=== PATIENT | male | born 1970 | race Caucasian/White ===

== ENCOUNTER 2021-04-10 13:36 | Emergency (ER) | payer OTHER, SELFPAY ==
[2021-04-10] VITALS (22 sets, daily range): BP systolic 118–140; BP diastolic 87–116; PULSE 64–83; RESP 10–19; TEMP 36.3; O2SAT 97–98
--- NOTE | ~2021-04-10 | CT_ITS ---
EXAMINATION: CTA chest abdomen pelvis EXAM DATE: 04/10/2021 17:46 INDICATION: CP, abd pain, history of thoracic aortic aneurysm. TECHNIQUE: Spiral CT of the chest, abdomen and pelvis was performed following intravenous injection o f 100 mL Omnipaque 350. Axial, coronal and sagittal images chest, abdomen and pelvis were reviewed. Maximum intensity projection 3-D reconstructions of the aorta were created by the technologist on ded kabuku workstation. Coronal maximum intensity pixel images of chest reviewed. The dose-length prod uct (DLP) for this examination was 1185.82 mGy-cm. The exposure was tailored according to patient si ze (auto mA exposure control), and iterative reconstruction (ASIR) was used as additional dose reduct ion technique. There is no prior study for comparison. FINDINGS: AORTA: Aortic valve replacement. Ascending aorta measures 4.9 cm, mildly aneurysmal. The descending t horacic and abdominal aorta are normal in caliber. There is no dissection. No central pulmonary embol i. CHEST: Right lower lobe calcified granuloma. There are no pleural or pericardial effusions. Trach eobronchial tree is patent. There is no mediastinal, hilar or axillary lymphadenopathy. There is no pneumothorax. Heart normal in size. There is mild coronary arterial calcification, arterial sc lerosis. ABDOMEN PELVIS: The liver, spleen, adrenal glands and pancreas are unremarkable. Gallbladder is unre markable. No biliary obstruction. Portal and splenic veins are patent. Kidneys enhance symmetrical ly. There is no hydronephrosis. Left renal peripelvic cysts. The prostate is unremarkable. The hector dder is unremarkable. There is no retroperitoneal or pelvic lymphadenopathy. Small umbilical fat-c ontaining hernia, small left inguinal fat-containing hernia. There is moderate sigmoid diverticulosis. Mild adjacent inflammation, appearance is consistent with a cute mild uncomplicated diverticulitis, inflamed diverticula indicated on axial image 211. The append ix is normal. There is small sliding gastroesophageal hiatal hernia. There is expected amount of co lonic stool. No free intraperitoneal gas. There are no osteoblastic or osteolytic lesions identif ied. IMPRESSION: 1. Mildly aneurysmal ascending aortic aneurysm. No dissection. 2. Mild acute uncomplicated sigmoid diverticulitis. 3. Small umbilical, left inguinal fat-containing hernias. Reviewed, dictated and finalized at location A. ROL VALVE MECHANIC
--- NOTE | 2021-04-10 13:59 | ECG_ITS ---
Measurements Intervals [place] Rate: 75 P: 19 DE: 153 QRS: -18 QRSD: 101 T: 31 QT: 349 QTc: 390 Interpretive Statements SINUS RHYTHM INFERIOR INFARCT, AGE INDETERMINATE ABNORMAL ECG Electronically Signed On 04-10-2021 14:20:40 [employer]OVATION PLANT SUPERVISOR by Kashmir Gusman D.O.
[2021-04-10 14:16] LABS: Basophils Percent Auto 0.5 % (0.2-1.2); Eosinophils Absolute Auto 0.3 K/mm3 (0-0.3); Eosinophils Percent Auto 4.1 % (0-4.4); Hematocrit 43.1 % (42.0-52.0); Hemoglobin 14.8 g/dL (14.0-18.0); Immature Granulocyte Absolute 0.01 K/mm3 (0.00-0.031); Immature Granulocyte Percent A 0.1 % (0-0.5); Lymphocytes Absolute Auto 2.88 K/mm3 (0.9-3.2); Lymphocytes Percent Auto 37.2 % (18.3-44.2); Mean Corpuscular HGB Conc 34.3 g/dl (32-36); Mean Corpuscular Hemoglobin 29.8 pg (26-34); Mean Corpuscular Volume 86.7 fl (80-100); Mean Platelet Volume 8.5 fl (7.4-10.4); Monocytes Absolute Auto 0.6 K/mm3 (0.1-0.6); Monocytes Percent Auto 8.1 % (2.6-8.5); Neutrophils Absolute Auto 3.9 K/mm3 (1.3-6.7); Platelet Count Result 301 k/mm3 (150-375); Red Blood Count 4.97 M/mm3 (4.6-6.20); Red Cell Distribution Width 12.4 % (11.5-14.5); White Blood Count 7.8 K/mm3 (4.5-10.0)
[2021-04-10 14:30] LABS: Add Urine Microscopic? YES; Appearance Urine Clear (Clear); Bilirubin Urine Negative (Negative); Blood Urine Negative (Negative); Color Urine Yellow (Yellow); Glucose Urine UA Negative (Negative); Ketones Urine Negative (Negative); Leukocyte Esterase Ur Negative LEU/UL (Negative); Nitrate Urine Negative (Negative); Protein Urine Negative (Negative); RBC Urine 0-2 /hpf (0-2); Specific Grav Ur 1.008 (1.001-1.035); Urobilinogen Urine Negative mg/dL (<2.0); WBC Urine 0-3 /hpf
[2021-04-10 14:34] LABS: Alanine Aminotransferase 31 U/L (4-50); Albumin Level 4.6 g/dL (3.5-5.1); Alkaline Phosphatase 53 U/L (38-126); Anion Gap 8 mmol/L (8-16); Aspartate Amino Transferase 34 U/L (17-59); Bilirubin,Total 0.9 mg/dL (0.2-1.3); Blood Urea Nitrogen 11 mg/dL (9-20); Calcium 10.4 mg/dL (8.4-10.2); Carbon Dioxide 30 mmol/L (22-30); Chloride 99 mmol/L (98-107); Estimated CRCL calculation 97 ml/min; Estimated Glomerular Filt Rate > 60; Glucose 102 mg/dL (65-110); Lipase 89 U/L (23-300); Potassium 4.4 mmol/L (3.4-5.0); Sodium 137 mmol/L (137-145)
--- NOTE | 2021-04-10 16:11 | ED.ABDPAIN ---
HPI - Abdominal Pain General Chief Complaint: Abdominal Pain <ELROY Lucio Last Filed: 04/10/21 18:40> Stated Complaint: ABD Pain <ELROY Lucio Last Filed: 04/10/21 18:40> Time Seen by Provider: 04/10/21 15:46 <ELROY Lucio Last Filed: 04/10/21 18:40> Source: patient <ELROY Lucio Last Filed: 04/10/21 18:40> Mode of arrival: ambulatory <ELROY Lucio Last Filed: 04/10/21 18:40> Limitations: no limitations <ELROY Lucio Last Filed: 04/10/21 18:40> History of Present Illness HPI narrative: This is a 50 year old male that presents to the ER for abdominal pain present over the last week. Reports sharp pains in the upper and lower abdomen. Reports the pain has now started to radiate into his chest as well. Associated with subjective fevers and nausea. Reports history of thoracic aortic aneurysm and aortic valve replacement. Denies shortness of breath, vomiting, or dysuria. <ELROY Lucio Last Filed: 04/10/21 18:40> Related Data Home Medications: Home Medications Medication Instructions Recorded Confirmed atorvastatin 20 mg tablet 20 mg PO DAILY 12/13/19 buspirone 10 mg tablet 10 mg PO BID 12/13/19 clonazepam 1 mg tablet 1 mg PO DAILY 12/13/19 losartan 25 mg tablet 25 mg PO DAILY 12/13/19 venlafaxine 150 mg tablet,extended 150 mg PO DAILY 12/13/19 release 24 hr fluoxetine 10 mg capsule 10 mg PO DAILY 03/21/20 <ELROY Lucio Last Filed: 04/10/21 18:40> Allergies/Adverse Reactions: Allergies Allergy/AdvReac Type Severity Reaction Status Date / Time No Known Allergies Allergy Verified 03/27/20 15:33 <ELROY Lucio Last Filed: 04/10/21 18:40> Review of Systems Review of Systems: CONSTITUTIONAL: Denies fever CARDIOVASCULAR: Reports chest pain. Denies edema. RESPIRATORY: Denies cough or dyspnea. GASTROINTESTINAL: Reports abdominal pain, nausea. Denies vomiting, or diarrhea. GENITOURINARY: Denies dysuria or hematuria. <Celeste Bernard PA-C - Last Filed: 04/10/21 18:40> All systems reviewed & are unremarkable except as noted in HPI and below <Celeste Bernard PA-C - Last Filed: 04/10/21 18:40> PMFSH Past Medical History Medical History: Medical History (Updated 04/10/21 @ 18:28 by Celeste Bernard PA-C) History of anxiety History of hyperlipidemia History of hypertension <Celeste Bernard PA-C - Last Filed: 04/10/21 18:40> Surgical History Surgical History: Surgical History (Updated 04/10/21 @ 16:18 by Celeste Bernard PA-C) Aortic valve replaced <Celeste Bernard PA-C - Last Filed: 04/10/21 18:40> Social History Social History: Social History (Updated 03/21/20 @ 08:44 by Anastasia Cabezas MA) Smoking status: Never smoker Alcohol intake: current Alcohol use details: Occasionally Substance use: never <Celeste Bernard PA-C - Last Filed: 04/10/21 18:40> Exam Narrative: GENERAL: Well-appearing, well-nourished, and in no acute distress. HEAD: Normocephalic, atraumatic. EYES: EOMI. CHEST: Clear to auscultation. No respiratory distress. No wheezes rales or rhonchi. Tender to palpation of the sternum HEART: Regular rate and rhythm. No murmur heard. Normal peripheral pulses. ABDOMEN: Soft, nondistended, normal active bowel sounds. Tender to palpation throughout the abdomen, without guarding. No CVA tenderness EXTREMITIES: Normal range of motion. No edema. SKIN: Warm, dry, no rash. NEURO: No focal deficits. Alert and oriented x3. PSYCH: Normal mood and affect <Celeste Bernard PA-C - Last Filed: 04/10/21 18:40> Course WATER POLLUTION CONTROL TECHNICIAN/PA Physician Supervision For this patient encounter, I reviewed the WATER POLLUTION CONTROL TECHNICIAN or PA documentation, treatment plan, and medical decision making. <Bruno Crook MD - Last Filed: 04/10/21 19:10> Vital Signs Vital signs: Vital Signs Temperature 97.4 F L 04/10/21 13:54 Pulse Rate 72
[2021-04-10] MEDS: PANTOPRAZOLE SODIUM IV 40 MG VIAL IV PUSH (16:27)
[2021-04-10] MEDS: ONDANSETRON INJ 4 MG/2 ML VIAL IV PUSH (16:27)
[2021-04-10 17:21] LABS: Prothrombin Time 12.8 Seconds (11.1-14.7)
[2021-04-10 17:22] LABS: Partial Thromboplastin Time 30.5 SECONDS (22.3-36.8)
[2021-04-10 17:30] LABS: Troponin I < 0.012 ng/mL (0.000-0.034)
[2021-04-10] MEDS: AMOXICILLIN/CLAVULANATE K 875-125 MG TAB 1 TABLET PO (18:51)
== END 2021-04-10 19:03 | disposition home or self-care (01) ==
PROVIDERS: Emergency Medicine; Physician Assistant; Emergency Provider Emergency Medicine; PCP Internal Medicine Gastroenterology
DX: K57.32 Diverticulitis of large intestine without perforation or abscess without bleeding (principal); E78.5 Hyperlipidemia, unspecified; I10 Essential (primary) hypertension; F41.9 Anxiety disorder, unspecified; Z95.2 Presence of prosthetic heart valve; I71.4 Abdominal aortic aneurysm, without rupture; K40.90 Unilateral inguinal hernia, without obstruction or gangrene, not specified as recurrent; R94.31 Abnormal electrocardiogram [ECG] [EKG]
CPT/HCPCS: 36415; 71275; 74174; 80053; 81001; 83690; 84484; 85025; 85610; 85730; 93005; 96374; 96375; 99284; A9270; C9113; J0131; J2405; Q9967

== ENCOUNTER 2024-07-03 19:11 | Inpatient (IN) | payer OTHER, SELFPAY ==
[2024-07-03] VITALS (9 sets, daily range): BP systolic 156–184; BP diastolic 88–109; PULSE 66–77; RESP 15–27; TEMP 36.5–37.1; O2SAT 90–98; BMI 31.4; BMI 32.3
--- NOTE | ~2024-07-03 | CT_ITS ---
CTA chest PE protocol Ordering provider: Thomas Toledo MD History: 53 years Male with . Shortness of breath . Comparison: None. Technique: CT angiogram chest was performed following timed intravenous injection of contrast. Thin s lice axial images and reformatted coronal images were obtained. Three dimensional reformatted images of the chest were also obtained using a [employer] workstation. . Automated exposure control and iterati ve reconstruction technique were employed. The dose-length product was 559.50 mGy-cm. 100 mL Omnipaqu e 350 was given IV. Findings: PULMONARY ARTERIES: No pulmonary embolus. VISUALIZED THORACIC INLET: Normal. MEDIASTINUM: Aorta/coronary arteries: Mild atheromatous disease. Heart/other: The heart is not enlarged. Lymph nodes: Precarinal lymph nodes are noted with the largest measures 1.7 cm.. Small paratracheal l ymph node is noted measuring 1.5 cm. LUNGS: Bilateral interstitial thickening with tree-in-bud appearance suggestive of pneumonitis. Clinical cor relation and follow advised. Bilateral minimal pleural effusion more on the right side. Adjacent atel ectasis versus pneumonia is seen. No pulmonary nodules or masses. No pneumothorax. VISUALIZED UPPER ABDOMEN: Tiny hypodensity in the right lobe of the liver may be a small cyst. Ultra sound evaluation advised. Small sliding hiatus hernia. Otherwise, the visualized upper abdomen is nor mal. MUSCULOSKELETAL: Soft tissues: The superficial soft tissues are normal. Bones: Age appropriate degenerative changes of the spine. Postoperative changes in the sternum. IMPRESSION: 1. Highly suggestive of pneumonitis. Clinical correlation and follow-up advised. 2. Bilateral pleural effusion with adjacent atelectasis versus pneumonia. 3. Small hypodensity in the liver. Ultrasound evaluation advised. 4. Mediastinal lymphadenopathy. Reviewed, dictated and finalized at location A. R OPERATOR AUTOMATIC IMPRESSION: 1. Highly suggestive of pneumonitis. Clinical correlation and follow-up advise d. 2. Bilateral pleural effusion with adjacent atelectasis versus pneumonia. 3. Small hypodensity in the liver. Ultrasound evaluation advised. 4. Mediastinal lymphadenopathy.
--- NOTE | ~2024-07-03 | XR_ITS ---
XR chest 2V Ordering provider: Thomas Toledo MD History: 53 years Male with . SOB . Comparison: None. FINDINGS: MEDIASTINUM: The cardiac silhouette is slightly enlarged. Postoperative changes in the mediastinum. LUNGS: No infiltrates, effusions or pneumothorax. Underlying emphysematous changes. OTHER: No free air under the diaphragm. IMPRESSION: No acute cardiopulmonary pathology. Reviewed, dictated and finalized at location A. L MILL OPERATOR
--- NOTE | ~2024-07-03 | CT_ITS ---
Non-contrast Head CT History: Headache, anticoagulation Technique: Axial non-contrast imaging of the brain was performed. Dose reduction technique was used on this scan by utilizing automated exposure control and iterative reconstruction technique. The dose -length product (DLP) was 1362.00 mGy-cm. Findings: There is no evidence of intracranial hemorrhage, mass lesion, or acute infarct. Brain par enchyma appears normal. The ventricles and subarachnoid spaces are normal in size. The calvarium ap pears normal. The visualized paranasal sinuses and mastoid air cells are clear. Impression: No significant abnormality seen. Reviewed, dictated and finalized at location . [facility] NURSE SUPERVISOR Impression: No significant abnormality seen.
--- NOTE | ~2024-07-03 | XR_ITS ---
[id number] Ordering provider: Isaac Gaitan MD History: . pain . Comparison: None. FINDINGS: VERTEBRAL BODIES: Normal height and alignment. No visible fracture or subluxation. The dens is intact . C6 and C7 are not demonstrated in the lateral view. DISK SPACES: Well maintained. PARASPINOUS SOFT TISSUES: No prevertebral soft tissue swelling. IMPRESSION: No acute osseous abnormality cervical spine. Reviewed, dictated and finalized at location A. AL TECHNICIAN APPRENTICE
--- NOTE | ~2024-07-03 | XR_ITS ---
EXAMINATION: XR shoulder LT min 2V DATE: 07/05/2024 15:43 INDICATION: Left shoulder pain TECHNIQUE: AP internally and externally rotated, AP oblique externally rotated and transscapular Y vi ews of the left shoulder were obtained. COMPARISON: None FINDINGS: Normal alignment. No fracture.Moderate left acromioclavicular osteoarthritis and mild glenohumeral o steoarthritis. Visualized portions of the lungs are clear. Median sternotomy wires and prior aortic v alve repair. Soft tissues are unremarkable. IMPRESSION: Mild left glenohumeral and moderate acromioclavicular osteoarthritis. Reviewed, dictated and finalized at location B. AURANT GENERAL MANAGER
--- NOTE | ~2024-07-03 | XR_ITS ---
EXAMINATION: XR chest 2V DATE: 07/07/2024 13:22 INDICATION: Pneumonia TECHNIQUE: PA and lateral views of the chest were obtained. COMPARISON: Chest radiograph and CT dated 07/03/2024 FINDINGS: Small left pleural effusion with blunting at the posterior sulcus and costophrenic angle. Calcified r ight lower lobe nodule consistent with old granulomatous disease. No other airspace opacities, pulmon crystal edema, pleural effusion or pneumothorax. Cardiomegaly with small left pericardial fat pad. Median sternotomy wires and changes of prior aortic valve repair. IMPRESSION: 1. Small left pleural effusion. Reviewed, dictated and finalized at location L. NDWATER PROGRAMS DIRECTOR
--- OUTSIDE RECORDS SUMMARY | 2024-07-03 19:13 | XMS_ITS | Data Portability ---
Author Organization [facility] [employer], Main Office Address [address] [place] [address] Care Team Providers Care Service Sprinkler Helper Name Role Phone WAYNE MORIN Primary Care Provider [phone] WAYNE MORIN Referring Provider Assessment Encounter Date Assessment Date Assessment LastModified by Organization Details LastModified Time 01/22/2023 01/22/2023 Impression: Patient I suspect has a symptomatic medial meniscus tear. I have discussed treatment options with him. I have explained that some meniscus tears will improve on their own with time. He has had symptoms for 2 months and and he feels that 2 weeks ago his pain was excruciating to the point were he could not walk of his knee. He would rather have an MRI scan obtained the if he has a meniscus tear that is significant have this addressed surgically rather than tried non operative treatment such as physical therapy. I have therefore recommended proceeding with MRI scan of his left knee we will see with the findings are and advise accordingly. In the meantime I have prescribed a Medrol Dosepak to see if that will give some relief. 30 minutes were spent in total care this patient this time spent in [id number]-rilm care. The [email or web address] Not available 01/22/2023 19:59:33 Plan of Treatment Reminders Order Date Submit Date Provider Last Modified By Organization Details Last Modified Time Details Appointments None recorded. Lab None recorded. Referral None recorded. Procedures None recorded. Surgeries None recorded. Imaging XR, knee 023 023 [email or web address] [facility] [place], [facility], [place], [address], 09:56:28 Medication Orders Medrol (Collin) 4 mg tablets in a dose pack 023 023 [email or web address] [facility], [address], [place], [address], 16:07:47 Patient TargetsNo targets recorded. Patient InstructionsNo instructions recorded. Reason for Referral None Reported. Results Created Date Observation Date Name Description Value Unit Range Abnormal Flag Note LastModifiedBy Organization Detail LastModifiedTime 01/23/20 XR, knee No observ ation record ed. [email or web address] [facility] [place] [address] [facility], [place], [address], 01/22/2023 19:57:01 02/28/2002/26/2023 MRI, knee, w/o contr ast [facility] [address], [place] [address] Patien t Name: VERONICA RIVAS Access ion #: [id number] Sex: M : 1970 7 Dictat ed By: Gerson Elias ell Attend ing Physic tk: JEOVANY PORTILLO Physic tk: JEOVANY PORTILLO Exam Date: Exam Name: MRI KNEE LT WO Admitt ing Diagno sis(es ): CLINIC AL INFORM ATION: Left knee pain. COMPAR KAREN: None. TECHNI LEONARDO INFORM ATION: Multis equenc e multip lanar MRI images of the left knee were obtain ed jadenou t contra st. FINDIN GS: Crucia te ligame nts: ACL and PCL are intact and otherw ise unrema rkable . Extens or mechan ism: Sammy ceps mechan ism and patell ar tendon are intact . Mild edema and small amount of fluid in the prepat ellar and superf icial infrap atella r bursae . Collat eral ligame nts: Grade 2 sprain of the MCL with edema and fluid along its superf icial and deep fibers . Latera l collat eral ligame nt is intact .. Menisc i: Horizo ntal flap tear involv ing the vault keeper ior horn and body of the medial menisc us with flap compon ent of the tear measur ing up to 5 mm extend ing into the adjace nt inferi or gutter , interp osed betwee n the medial tibial platea u and MCL. There is also free edge frayin g, possib le minima l free edge tear at the vault keeper ior horn of the medial menisc us more latera lly. Latera l menisc us is intact . Cartil age: Chondr al fissur ing/fi brilla tion near the median ridge of the patell a and involv ing adjace nt portio ns of the medial and latera l patell ar facets . Modera te chondr al fissur ing in the weight bearin g zone has of the medial and latera l femora l condyl es. Bones: No acute fractu re or focal marrow contus ion Joint fluid: Small joint effusi on. Other: Small poplit eal cyst. IMPRES NAEEM: 1. Horizo ntal flap tear in the vault keeper ior horn and body of the medial menisc us with flap compon ent extend ing into the adjace nt inferi or gutter . 2. Free edge frayin g and possib le small free edge tear or latera lly in the Page [address] [facility] [address] [place] [address] Patien t Name: VERONICA RIVAS Access ion #: [id number] Sex: M : 1970 7 Dictat ed By: Gerson shin Attend ing Physic tk: EVELIN BAEZA [facility] Physic tk: JEOVANY PORTILLO Exam Date: 2022 16:41 PM Exam Name: MRI KNEE LT WO Admitt ing Diagno sis(es ): vault keeper ior horn of the medial menisc us. 3. Grade 2 sprain of the MCL. 4. Grade III chondr omalac ia in all 3 compar tments . 5. Small joint effusi on. 6. Small poplit eal cyst. 7. Mild prepat ellar and superf icial infrap atella r bursit is. Electr onical ly Signed by: Gerson shin at 2022 14:54: 31 PM Page [address] (Imaging) [address] [place], [address], 03/02/2023 10:04:29 Result Notes None recorded. Problems Name Problem SNOMED Code Status Onset Date Resolution Date Notes Provider Name and Address Organization Details Recorded Time Multiple lipomata 493157906 Active Not Available [facility] 3 18:01:10 Pain of left knee joint 77893755382715 7 Active 2022 THOR Page, [place] [facility] 12:23:47 Problem Notes None recorded. Procedures Surgical History Date Name Laterality Status Provider Name and Address Organization Details Recorded Time procedure on heart completed Paconelda Millere HOLL[place]onya [place] [facility] 07/28/2022 16:39:53 procedure on intestine completed THOR Vidal [facility] 07/28/2022 16:40:18 replacement of aortic valve completed Paco Kunz Sonya [facility] 07/28/2022 16:40:50 Imaging Results Imaging Date Name Status LastModified by Organiz ation Details LastModified Time 01/22/2023 XR, knee completed [email or web address] [facility] [address], [address], 01/22/2023 19:57:01 02/26/2023 MRI, knee, w/o contrast completed [address] (Imaging) [address] [place], [address], 03/02/2023 10:04:29 Procedure Notes None recorded. Medical Equipment None Reported. Allergies No known drug allergies Medications Name Sig Start Date Stop Date Status Note LastModified by Organization Details LastModified Time losartan 50 mg tablet TAKE 1 TABLET BY MOUTH ONCE DAILY active Not Available Not Available No t Available atorvastati n 40 mg tablet TAKE 1 TABLET BY MOUTH ONCE DAILY active Not Available Not Available No t Available carvedilol 6.25 mg tablet TAKE 1 TABLET BY MOUTH TWICE DAILY active Not Available Not Available No t Available prednisone 10 mg tablet TAKE 4 TABLETS BY MOUTH ON DAYS 1-3, THEN 3 TABS ON DAYS 4-5, THEN 2 TABS ON DAY 6, THEN 1 TAB ON DAY 7 active Not Available Not Available No t Available atorvastati n 20 mg tablet TAKE 1 TABLET BY MOUTH ONCE DAILY active Not Available Not Available No t Available carvedilol 12.5 mg tablet TAKE 1 TABLET BY MOUTH TWICE DAILY active Not Available Not Available No t Available naproxen 375 mg tablet TAKE 1 TABLET BY MOUTH TWICE DAILY NEEDED PAIN OR INFLAMMAT ION active Not Available Not Available No t Available azithromyci n 250 mg tablet FPD active Not Available Not Available Not Available hydrocodone 5 mg-acetamin ophen 325 mg tablet TK 1 T PO Q 4 H NEEDED FOR PAIN 01/22 completed Not Available Not Available Not Available Medrol (Collin) 4 mg tablets in a dose pack take the medrol dose pack PO as directed 2022 active Not Available Not Available Not Avai lable clonazepam 1 mg tablet TAKE 1 TABLET BY MOUTH 4 TIMES DAILY active Not Available Not Available No t Available venlafaxine ER 150 mg capsule,ext ended release 24 hr TAKE 1 CAPSULE BY MOUTH ONCE DAILY active Not Available Not Available No t Available metronidazo le 500 mg tablet TAKE 1 TAB BY MOUTH AT 1 PM, 2 PM, AND 10 PM THE DAY BEFORE SURGERY 01/22 completed Not Available Not Available Not Available ciprofloxac in 500 mg tablet TAKE 1 TABLET BY MOUTH TWICE DAILY FOR DIVERTICU LITIS TAKE ON AN EMPTY STOMACH 01/22 completed Not Available Not Available Not Available peg-electro lyte solution 420 gram oral solution TAKE 1/2 BY MOUTH AT 5 PM ON 09/12 THEN TAKE 1/2 AT 5 AM ON 09/13 completed Not Available Not Available Not Available ondansetron 8 mg disintegrat ing tablet TAKE ONE TABLET BY MOUTH AT 11 AM WHEN STARTING BOWEL PREP,TAKE ONE TABLET NEEDED EVERY 6-8 HOURS AFTER. active Not Available Not Available No t Available Gentle Laxative (bisacodyl) 5 mg tablet,irma yed release TAKE 6 TABS BY MOUTH AT 8 AM ON 09/12/2101/22 completed Not Available Not Available Not Available zaleplon 10 mg capsule TAKE 1 CAPSULE BY MOUTH AT BEDTIME active Not Available Not Available No t Available furosemide 20 mg tablet TAKE 1 TABLET BY MOUTH ONCE DAILY active Not Available Not Available No t Available lorazepam 1 mg tablet TAKE 1 TABLET BY MOUTH THREE TIMES DAILY NEEDED active Not Available Not Available No t Available neomycin 500 mg tablet 01/22 completed Not Available Not Available Not Available fluoxetine 20 mg capsule TAKE 1 CAPSULE BY MOUTH ONCE DAILY active Not Available Not Available No t Available risperidone 1 mg tablet TAKE 1 TABLET BY MOUTH AT BEDTIME active Not Available Not Available No t Available naproxen 500 mg tablet TAKE 1 TABLET BY MOUTH TWICE DAILY active Not Available Not Available No t Available aripiprazol e 5 mg tablet TAKE 1 TABLET BY MOUTH ONCE DAILY AT NIGHT AT BEDTIME FOR 90 DAYS active Not Available Not Available No t Available Aspir-81 01/22 completed Not Available Not Available Not Available alprazolam 01/22 completed Not Available Not Available Not Available Vitals Date Recorded Body height Oxygen saturation Oxygen saturation in Arterial blood by Pulse oximetry Body mass index (BMI) Body weight Body temperature Heart rate Systolic blood pressure Diastolic blood pressure Provider Name and Address Organization Details Last Updated DateTime 170.18 cm 97 % 97 % 32.6 kg/m2 83022.2 1 g 98.2 [degF] 84 /min 169 mm[Hg] 116 mm[Hg] THOR Vidal [facility] [employer] [facility] 16:37:11 Date Recorded Body height Provider Name an d Address Organization Details Last Updated DateTime 01/22/2023 170.18 cm Zayda Hirsch Sonya [facility] [employer] [facility] 01/22/2023 12:21:30 Date Recorded Body mass index (BMI) Body weight Provider Name and Address Organization Details Last Updated DateTime 01/22/2023 34.3 kg/m2 27678.73 g Coral Lopes Sonya [facility] [employer] [facility] 01/22/2023 12:47:04 Social History Question Answer Notes LastModified by Organizat ion Details LastModified Time Tobacco Smoking Status [facility] 07/28/2022 16:39:40 What Is Your Level Of Alcohol Consumption? Moderate [email or web address] Information not available 07/28/2022 What Is Your Level Of Caffeine Consumption? Moderate Information not available 07/28/2022 What Was The Date Of Your Most Recent Tobacco Screening? 07/28/2022 [email or web address] Information not available 07/28/2022 Have You Ever Been Counseled For Unhealthy Alcohol Use? No Information not available 07/28/2022 Do You Use Any Illicit Or Recreational Drugs? No [email or web address] Information not available 07/28/2022 Do You Or Have You Ever Used Any Other Forms Of Tobacco Or Nicotine? Yes Chew Information not available 01/22/2023 Sex: Unknown Functional Status None recorded. Mental Status None recorded. Family History Relationship Description Onset Age of this Age Resolved Age Notes LastModified by Organization Details LastModified Time Father Hypertensive disorder Not available 2022 12:22:58 Mother Hypertensive disorder [email or web address] Not available 2022 12:22:59 Medical History Condition Response ARTHRITIS Y HEART DISEASE/HEART PROBLEMS Y DEPRESSION (INCLUDING POST ) Y HEART MURMUR Y HYPERTENSION Y Past Encounters Encounter ID Performer Location Encounter Start Date Encounter Closed Date Diagnosis/Indication Diagnosis SNOMED-CT Code Diagnosis ICD10 Code Diagnosis Note [id number] Fitz Pimentel NP [facility] [address], [address] [place] [address] 07/28/2022 16:08:40 07/28/2022 16:58:00 Vasectomy requested 898927266 Z30.2 Pre-operat erica counseling given to patient including pre-op care of cleaning and shaving before the procedure. Patient is aware that this is considered a permanent form of sterilizat ion, even though it can be reversed it is not guaranteed to be successful . Patient instructed to purchase tight fitting compressio n shorts and bring them to appointmen t to wear immediatel y after the procedure. We discussed post op care aimed at reducing post-op complicati ons such as scrotal swelling and hematoma. Patient instructed on compressio n, elevation, ice, and pain control with Tylenol/Mo eric. Patient instructed on activity levels after procedure. He is to avoid bathtubs, swimming, hot tubs, ect until incisions are completely healed in 1-2 weeks. We discussed that he is not sterile immediatel y after the procedure and other forms of contracept ion will need to be utilized until he has two negative semen samples. One dropped off 6 weeks after the procedure and one two weeks after the first negative. [facility] to sign his consent form prior to taking pain medication /antianxie ty medication prescribed . All questions were discussed and answered to patients satisfacti on. [id number] Jeovany Quigley MD [facility] [place] [address] [place] [address] 01/22/2023 11:58:42 01/23/2023 09:56:28 Pain of left knee joint 8039451122 [id number] M25.562 Health Concerns Section Related Observation LastModified by Organization Detai ls LastModified Time None Recorded Concern Status LastModified by Organization Details LastModified Time None Recorded Advance Directives Directive None Recorded Payers Encounter Date Sequence Insurance Name Policy Number Policy Londono Covered Member ID Londono Member ID Guarantor Name 07/28/2022 1 [employer] Petr Rivas Jr [id number] Petr Rivas 01/22/2023 1 [employer] Petr Byron Rob Jessica [id number] Petr Rivas Notes Date Note Type Note Provider Name and Address Organization Details Recorded Time 07/28/2022 text/html : :Patient presents for vasectomy consultation. : noCHILDREN: noCONSIDERS VASECTOMY PERMANENT: yesPRIOR SCROTAL OPERATIONS: noneBLOOD THINNERS: none Fitz Pimentel NP [address] [facility], [facility] [address], [place], [address], [place] [facility] [employer] 08/04/2022 14:08:55 01/22/2023 text/html patient is a 52-year-old gentleman referred by Dr. Morin for evaluation of his left knee. Two months ago he developed spontaneous onset medial joint line pain left knee. He has also noticed some pain posteriorly in the the knee. The pain became quite severe he went to urgent care when 2 weeks ago it was so painful he could not put weight on it. 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 He recalls that 5 or 6 months ago he had a bad fall and turned his ankle little bit recalls his left knee was a little bit sore for short. Time but then that was fine. Patient's past history is significant for diverticulitis past. He had 8 in of intestine removed 1 year ago because of the complication and he was advised to minimize use of nonsteroidal anti-inflammatory medications as result. Past history of open heart surgery for aortic valve replacement at age 41. The he does have hypertension also. He is still working and doing his best tolerated. Jeovany Quigley MD [address] [place] [address] [address], [place], [address], [place] [facility] [employer] [facility] [employer] 01/22/2023 19:59:55
--- OUTSIDE RECORDS SUMMARY | 2024-07-03 19:13 | XMS_ITS | Clinical Summary ---
Author Organization [facility] Address [address] [place] [address] Care Team Providers Care Aquarist Name Role Phone Shun Simpson MD Primary Care Provider Source Comments [facility],non-owned Affiliates and Associated Physician Practices is amultiple site organization consisting of ambulatory clinics and hospital sitesin [place], [place], [place] and [place]. This disclosure is being madepursuant to the Care Everywhere program and may not contain all information available regarding this patient. Last updated 18.[facility] Allergies No known active allergies Medications * Be aware that medications may not be up to date on this document. Alwaysverify current medications with the patient. Medication Sig Dispensed Refills Start Date End Date Status busPIRone (BUSPAR) 10 MG tablet Take 10 mg by mouth 2 times daily 5 10/28/2018 Active clonazePAM (KLONOPIN) 1 MG tablet Take 1 mg by mouth 2 times daily 5 01/29/2019 Active atorvastatin (LIPITOR) 20 MG tablet Take 20 mg by mouth once daily 4 02/02/2019 Active losartan (COZAAR) 25 MG tablet TAKE 1 2 (ONE HALF) TABLET BY MOUTH ONCE DAILY 1 02/14/2019 Active venlafaxine XR 24hr (EFFEXOR XR) 150 MG capsule Take 150 mg by mouth once daily 5 01/25/2019 Active Social History Tobacco Use Types Packs/Day Years Used Date Smoking Tobacco: Never Smokeless Tobacco: Never Sex and Gender Information Value Date Recorded Sex Assigned at Not on file Gender Identity Male 02/19/2019 12:12 PM CDT Sexual Orientation Not on file Last Filed Vital Signs Vital Sign Reading Time Taken Comments Blood Pressure 148/88 02/19/2019 12:13 PM CDT Pulse 78 02/19/2019 12:13 PM CDT Temperature 36.8 C (98.2 F) 02/19/2019 12:13 PM CDT Respiratory Rate 16 02/19/2019 12:13 PM CDT Oxygen Saturation 97% 02/19/2019 12:13 PM CDT Inhaled Oxygen Concentration - - Weight 95.3 kg (210 lb) 02/19/2019 12:13 PM CDT Height 170.2 cm (5' 7 ) 02/19/2019 12:13 PM CDT Body Mass Index 32.89 02/19/2019 12:13 PM CDT Plan of Treatment Health Maintenance Due Date Last Done Comments COLOGUARD (AGES 45-75) - COL ON CA SCREENING 1971 COLON MONITORING 1971 COLONOSCOPY - COLON CA SCREENING 1971 CT COLONOGRAPHY - COLON CA SCREENING 1971 Colorectal Cancer Screening 1971 FIT - COLON CA SCREENING 1971 FLEX SIG - COLON CA SCREENING 1971 HIV SCREENING 08/22/1986 HEPATITIS C SCREENING 08/18/1989 DTAP/TDAP/TD VACCINES (1 - Tdap) 08/22/1990 HEPATITIS B VACCINE (1 of 3 - 19+ 3-dose series) 08/22/1990 SCREENING FOR DIABETES 02/19/2019 PNEUMOCOCCAL VACCINE 50+ (1 of 1 - PCV) 08/22/2021 ZOSTER VACCINE (1 of 2) 08/22/2021 COVID-19 VACCINE (1 - 2023-2 5 season) 2024 INFLUENZA VACCINE (#1) 2024 DEPRESSION SCREENING 05/04/2024 HIB VACCINE Aged Out No longer eligi ble based on patient's age to complete this topic HPV VACCINE Aged Out No longer eligi ble based on patient's age to complete this topic MENINGOCOCCAL (Group B) VACCINE Aged Out No longer eligible based on patient's age to complete this topic MENINGOCOCCAL VACCINE Aged Out No shaggy [place] eligible based on patient's age to complete this topic PNEUMOCOCCAL VACCINE Aged Out No long er eligible based on patient's age to complete this topic Care Teams Aquarist Relationship Specialty Start Date End Date Shun Simpson MD [address] [place] [id number] PCP - General Gastroenterology 01/10/19
--- OUTSIDE RECORDS SUMMARY | 2024-07-03 19:14 | XMS_ITS | CONTINUITY OF CARE DOCUMENT ---
Author Name elinor aldrich Address Unknown Organization [facility] Address [address] [address] [place] [address] Phone [phone] Care Team Providers Care Die Repairer Stamping Name Role Phone Ade HUSAIN, Porfirio Unavailable [phone] MD DE SOUZA JOSHUA Unavailable NEELAM MORIN MD Unavailable PROBLEMS Condition Status Date Provider Notes Coumadin therapy active Willie Roth RN SHORTNESS OF BREATH-07/14 CAT H SEVERE , 4+ AI active ? Porfirio Booker MD AORTIC STENOSIS-07/14 AVR active ? Porfirio mays MD CAROTID ARTERY DISEASE-07/14 CAROTID DUP NEG active ? Porfirio Booker MD HTN ESSENTIAL active Porfirio Booker MD CAD-mild nonobstructive active Porfirio Booker MD Aortic root dilatation active Porfirio Booker MD Neck pain, left active Porfirio Booker MD SLEEP APNEA active Porfirio Booker MD Fatigue active Porfirio Booker MD Anxiety active Porfirio Booker MD Chest pain active Ingris Ventimiglia PAPER REELER Cardiology examination active Porfirio Booker MD ENCOUNTERS Date Type Provider Location Encounter Diag nosis - In-person encounter Office Visit Porfirio Booker MD [facility] - In-person encounter Office Visit Porfirio Booker MD [facility] - In-person encounter Office Visit Porfirio Booker MD [facility] Cardiology examination - In-person encounter Office Visit Lauren Lemons MD [facility] Chest pain - In-person encounter Office Visit Porfirio Booker MD [facility] - In-person encounter Office Visit oPrfirio Booker MD [facility] Anxiety - In-person encounter Office Visit Porfirio Booker MD [facility] - In-person encounter Office Visit Porfirio Booker MD [facility] - In-person encounter Office Visit Porfirio Booker MD [facility] SLEEP APNEAFatigue - In-person encounter Office Visit Lauren Lemons MD [facility] - In-person encounter Office Visit Porfirio Booker MD [facility] Neck pain, left - In-person encounter Office Visit Porfirio Booker MD [facility] Aortic root dilatation - In-person encounter Office Visit Porfirio Booker MD [facility] - In-person encounter Office Visit Porfirio Booker MD [facility] - In-person encounter Office Visit Porfirio Booker MD [facility] - In-person encounter Office Visit Porfirio Booker MD [facility] CAD-mild nonobstructive - In-person encounter Office Visit Porfirio Booker MD [facility] HTN ESSENTIAL - In-person encounter Office Visit Porfirio Booker MD [facility] SHORTNESS OF BREATH-07/14 CATH SEVERE , 4+ AIAORTIC STENOSIS-07/14 AVRCAROTID ARTERY DISEASE-07/14 CAROTID DUP NEG - In-person encounter Office Visit Porfirio Booker MD [facility] SHORTNESS OF BREATH-07/14 CATH SEVERE , 4+ AIAORTIC STENOSIS-07/14 AVR VITAL SIGNS Date Observation Value Provider Body Mass Index (Ratio) 31.41 kg/m2 Dianna Booker MD blood pressure, diastolic 78 mm[Hg] Shane aracelis Osborn blood pressure, systolic 111 mm[Hg] Jada roberson Osborn blood pressure, cuff size regular Shane aracelis Osborn oxygen saturation, oximetry 98 % [facility] pulse rate 80 /min [facility] weight E&M 200.6 [lb_av] [facility] Osborn height E&M 67 [in_i] [facility] Osborn Body Mass Index (Ratio) 32.73 kg/m2 Dianna Booker MD blood pressure, diastolic 114 mm[Hg] nkLog blood pressure, systolic 162 mm[Hg] Jordyn og pulse rate 83 /min Zuleikachelsie Thayer oxygen saturation, oximetry 98 % Zuleikachelsie Thayer respiratory rate E&M 20 /min Zuleika Thayer blood pressure, cuff size regular Gordon bitbryan Thayer blood pressure, diastolic 114 mm[Hg] Ta bitha Thayer blood pressure, systolic 162 mm[Hg] Tab itha Thayer weight E&M 209 [lb_av] Zuleika Thayer height E&M 67 [in_i] Zuleika Thayer Body Mass Index (Ratio) 32.57 kg/m2 Dianna Booker MD blood pressure, cuff size regular Gordon romero Thayer blood pressure, diastolic 94 mm[Hg] Gordon romero Thayer blood pressure, systolic 142 mm[Hg] Elmo reynolds Thayer oxygen saturation, oximetry 98 % Zuleika Thayer pulse rate 86 /min Zuleika Thayer weight E&M 208 [lb_av] Zuleika Thayer respiratory rate E&M 12 /min Zuleika Thayer height E&M 67 [in_i] Zuleika Thayer Body Mass Index (Ratio) 33.20 kg/m2 Joseph Lemons MD pulse rate 92 /min [place] Rizo respiratory rate E&M 20 /min [place] Rizo oxygen saturation, oximetry 98 % [place] Rioz blood pressure, cuff size regular ruth ann Rizo blood pressure, diastolic 103 mm[Hg] ruth ann Rizo blood pressure, systolic 161 mm[Hg] She grace Rizo weight E&M 212 [lb_av] [place] Rizo height E&M 67 [in_i] [place] Rizo Body Mass Index (Ratio) 33.20 kg/m2 Dianna Booker MD blood pressure, cuff size large Ke rri Martin blood pressure, diastolic 90 mm[Hg] Ke rri Martin blood pressure, systolic 112 mm[Hg] Ted Salazar oxygen saturation, oximetry 97 % Ruth Salazar respiratory rate E&M 14 /min Ruth klein pulse rate 98 /min Ruth Ford [facility] weight E&M 212 [lb_av] Ruth lyle height E&M 67 [in_i] Ruth Liliana [facility] Body Mass Index (Ratio) 33.83 kg/m2 Dianna Booker MD blood pressure, cuff size large Ke rri Gruenenfelder blood pressure, diastolic 100 mm[Hg] Ke rri Gruenenfelder blood pressure, systolic 148 mm[Hg] Ted ri Stephennfshahanaer oxygen saturation, oximetry 98 % Ruth Grkayleennenfghislaine respiratory rate E&M 16 /min Ruth G lulenenfelder pulse rate 63 /min Ruth Grkayleennenfe lder weight E&M 216 [lb_av] Ruth Grfernandoe lder height E&M 67 [in_i] Ruth Grkayleennenfe er weight E&M 205 [lb_av] Merrick coyle Body Mass Index (Ratio) 34.14 kg/m2 Dianna Booker MD oxygen saturation, oximetry 95 % [facility] rate E&M 16 /min Tonsha Tierney pulse rate 88 /min Tonsha Tierney weight E&M 218 [lb_av] Tonsha Tierney height E&M 67 [in_i] Tonsha Tierney Body Mass Index (Ratio) 30.85 kg/m2 Dianna Booker MD blood pressure, cuff size large Ke rri Jacintouenenfghislaine blood pressure, diastolic 100 mm[Hg] Ke rri Gruenenfeldmargy blood pressure, systolic 122 mm[Hg] Ted ri Michaelnenfghislaine oxygen saturation, oximetry 98 % Ruth Martin respiratory rate E&M 18 /min Ruth G lulenenfelder pulse rate 70 /min Ruth Liliana lder weight E&M 197 [lb_av] Ruth Ford lder height E&M 67 [in_i] Ruth Ford er Body Mass Index (Ratio) 34.92 kg/m2 Dianna Booker MD blood pressure, diastolic 86 mm[Hg] Ramy Duranby blood pressure, systolic 120 mm[Hg] Ramyi darvin Duranby pulse rate 90 /min Carla Jennifer oxygen saturation, oximetry 98 % Carla Jennifer respiratory rate E&M 17 /min Carla Jennifer blood pressure, cuff size regular Ramy Duranby weight E&M 223 [lb_av] Carla Jennifer height E&M 67 [in_i] Carla Jennifer Body Mass Index (Ratio) 34.77 kg/m2 Joseph eLmons MD blood pressure, cuff size regular Ke rri Martin blood pressure, diastolic 102 mm[Hg] Ke rri Martin blood pressure, systolic 142 mm[Hg] Ted Salazar oxygen saturation, oximetry 97 % Ruth Salazar respiratory rate E&M 18 /min Ruth klein pulse rate 91 /min Ruth Ford er weight E&M 222 [lb_av] Ruth Ford er height E&M 67 [in_i] Ruth Liliana er Body Mass Index (Ratio) 33.36 kg/m2 Dianna Booker MD blood pressure, cuff size large Ke rri Martin blood pressure, diastolic 86 mm[Hg] Ke rri Martin blood pressure, systolic 122 mm[Hg] Ted Salazar oxygen saturation, oximetry 97 % Ruth Salazar respiratory rate E&M 16 /min Ruth benjaminshahanamargy pulse rate 88 /min Ruth Ford er weight E&M 213 [lb_av] Ruth Ford er height E&M 67 [in_i] Ruth Ford er Body Mass Index (Ratio) 34.08 kg/m2 Dianna Booker MD blood pressure, resting Yes Geetha Harp blood pressure, diastolic 85 mm[Hg] Ariel Harp blood pressure, systolic 128 mm[Hg] Morelia Harp oxygen saturation, oximetry 96 % Cosme Harp respiratory rate E&M 18 /min Dallas Harp pulse rate 91 /min CosmeRoberta Perese cesia weight E&M 217.6 [lb_av] Cosme Ja hung height E&M 67 [in_i] Cosme Mendes nson blood pressure, diastolic 80 mm[Hg] Ariel Harp blood pressure, systolic 124 mm[Hg] Morelia Harp pulse rate 64 /min Cosme Mendes maycoon oxygen saturation, oximetry 98 % Cosme Harp respiratory rate E&M 16 /min Dallas Harp Body Mass Index (Ratio) 33.26 kg/m2 Geetha Harp weight E&M 212.4 [lb_av] Cosme Ja hung blood pressure, diastolic 60 mm[Hg] Ariel Harp blood pressure, systolic 104 mm[Hg] Morelia Harp pulse rate 86 /min Cosme Steve maycoon oxygen saturation, oximetry 98 % Cosme Harp respiratory rate E&M 16 /min Dallas Harp Body Mass Index (Ratio) 32.51 kg/m2 Geetha Harp weight E&M 207.6 [lb_av] Cosme persaud Body Mass Index (Ratio) 33.67 kg/m2 Geniaa ryne Crandall blood pressure, diastolic 85 mm[Hg] An ho Crandall blood pressure, systolic 133 mm[Hg] Ane atris [facility] pulse rate 91 /min Aneatris [facility] oxygen saturation, oximetry 99 % Aneatris Raz respiratory rate E&M 16 /min Aneatri s [facility] weight E&M 215 [lb_av] Aneatris [facility] Body Mass Index (Ratio) 33.98 kg/m2 Michelle michele [facility] blood pressure, diastolic 92 mm[Hg] An ho Crandall blood pressure, systolic 150 mm[Hg] Ane atris [facility] pulse rate 64 /min Aneatris [facility] oxygen saturation, oximetry 98 % Aneatris [facility] respiratory rate E&M 18 /min Aneatri s [facility] weight E&M 217 [lb_av] Geniaatris Raz blood pressure, diastolic 86 mm[Hg] Oscar Roth RN blood pressure, systolic 128 mm[Hg] Willie Roth RN pulse rate 62 /min Willie Roth RN oxygen saturation, oximetry 99 % Willie Roth RN respiratory rate E&M 16 /min Willie baird RN Body Mass Index (Ratio) 32.22 kg/m2 Willie Roth RN weight E&M 205 [lb_av] Willie Roth RN height E&M 67 [in_i] Willie Roth RN Body Mass Index (Ratio) 31.59 kg/m2 Keri a Moriah blood pressure, diastolic 64 mm[Hg] Ta vera Stueber blood pressure, systolic 114 mm[Hg] Dan ya Stueber pulse rate 75 /min Kajal Major oxygen saturation, oximetry 98 % Kajal Major respiratory rate E&M 16 /min Kajal bernard weight E&M 201 [lb_av] Kajal Major blood pressure, diastolic 85 mm[Hg] Radha Basurto blood pressure, systolic 127 mm[Hg] Janice Basurto pulse rate 83 /min Gema Basurto oxygen saturation, oximetry 98 % Gema Basurto respiratory rate E&M 16 /min Gema Basurto weight E&M 202 [lb_av] Gema Basurto height E&M 67 [in_i] Gema Basurto ALLERGIES No Known Drug Allergies RESULTS Date Observation Value Provider Reference Range Interpretation Location coagulation managed by Willie Roth RN international normalized ratio (INR) 2.1 Willie Roth RN Normal prothrombin time (patient) 25.2 s Willie Roth RN coagulation managed by Willie Roth RN international normalized ratio (INR) 2.8 Willie Roth RN Normal prothrombin time (patient) 33.5 s Willie Roth RN coagulation managed by Willie Roth RN international normalized ratio (INR) 3.6 Willie Roth RN Normal prothrombin time (patient) 43.2 s Willie Roth RN coagulation managed by Willie Roth RN international normalized ratio (INR) 4.1 Willie Roth RN Normal prothrombin time (patient) 48.8 s Willie Roth RN coagulation managed by Willie Roth RN international normalized ratio (INR) 2.9 Willie Roth RN Normal prothrombin time (patient) 34.7 s Willie Roth RN coagulation managed by Willie Roth RN international normalized ratio (INR) 4.6 Willie Ira [place] Normal prothrombin time (patient) 54.7 s Willie Gonzalezsada [place] coagulation managed by Adalgisa Crandall RN international normalized ratio (INR) 4.4 Adalgisa Crandall RN High coagulation managed by Willie Roth RN Willie Ira [place] international normalized ratio (INR) 1.6 Willie Roth RN Normal prothrombin time (patient) 19.3 s Willie Ira [place] coagulation managed by Willie Roth RN Willie Ira [place] international normalized ratio (INR) 1.3 Willie Roth RN Normal prothrombin time (patient) 16.0 s Willie Ira [place] international normalized ratio (INR) 1.1 Teressa Raymundo platelet count 238 10*3/mm3 Teressa Raymundo hematocrit, blood 35.1 % Teressa Raymundo alanine aminotransferase (SGPT), serum 25 1/L Teressa Raymundo aspartate aminotransferase (SGOT), serum 18 1/L Teressa Raymundo creatinine, serum 0.85 mg/dL Teressa Raymundo potassium, serum 4.4 mmol/L Teressa Raymundo sodium, serum 140 mmol/L Teressa Raymundo HISTORY OF MEDICATION USE Medication Status Instructions Dates Provider Indications Com ments warfarin 5 mg tablet active Take 1/2 tablet by mouth every evening one tab on only Willie Roth RN warfarin 5 mg tablet completed - Willie Roth RN alprazolam 0.5 mg tablet active TAKE 1 TO 2 TABLETS BY MOUTH UP TO THREE TIMES DAILY Zuleika Thayer clonazepam 1 mg tablet active TAKE 1 TABLET BY MOUTH UP TO 6 TIMES DAILY Zuleika Thayer carvedilol 12.5 mg tablet active Take 1 tablet by mouth twice daily Renetta Rushing atorvastatin 20 mg tablet active Take 1 tablet by mouth once daily Renetta Rushing Lasix 20 mg tablet completed Take 1 tablet by mouth once a day - Ruth Salazar lorazepam 1 mg tablet active TAKE 1 TABLET BY MOUTH THREE TIMES DAILY NEEDED Ingris Rayoglamee PAPER REELER losartan 50 mg tablet completed Take 1 tablet by mouth twice daily - Michaelrubia Osborn Aspirin Low Dose 81 mg tablet,delayed release (DR/EC) completed Take 1 tablet by mouth once a day - Porfirio Booker MD Coreg 12.5 mg tablet completed Take 1 tablet by mouth twice a day Take 1 tablet by mouth twice daily - Ruth Salazar fluoxetine 20 mg capsule active capsule by mouth once a day Ruth Salazar Klonopin 1 mg tablet completed take one pill twice a day - Ingris Rayodoni DURBINP losartan 50 mg tablet completed Take 1 tablet by mouth once a day - Porfirio Booker MD per last OV with UQ atorvastatin 20 mg tablet completed Take 1 tablet by mouth once a day - Mack Dietrich LOSARTAN POTASSIUM 25 MG ORAL TABLET completed Take one tablet daily - Carla Rodriguez Fish Oil 360-1,200 mg capsule active 1 capsule by mouth once a day Cosme Harp Effexor XR 150 mg capsule,extende d release 24hr active capsule by mouth once a day Ruth Salazar BUSPIRONE HCL 30 MG ORAL TABLET completed twice daily - Ruth Salazar KLONOPIN 0.5 MG ORAL TABLET completed at prn - Cosme Harp POTASSIUM CHLORIDE ANABELLE ER 10 MEQ ORAL TABLET EXTENDED RELEASE completed ONE TAB. DAILY - Willie Roth RN METOPROLOL TARTRATE 25 MG ORAL TABLET completed 1 tab twice daily - Porfirio Booker MD PERCOCET 5-325 MG ORAL TABLET completed as needed - Willie Roth RN FUROSEMIDE 40 MG ORAL TABLET completed daily - Willie Roth RN COLACE 100 MG ORAL CAPSULE completed daily - Willie Roth RN ASPIRIN 81 MG ORAL TABLET completed ONE TAB. DAILY - Ruth Martin PAROXETINE HCL 20 MG ORAL TABLET completed one tablet daily - CosmeRoberta Harp FLAGYL 500 MG ORAL TABLET completed daily - Willie Roth RN LISINOPRIL 10 MG ORAL TABLET completed ONE TAB. DAILY - Cosme Harp LEXAPRO 20 MG ORAL TABLET completed ONE TAB. DAILY - Willie Roth RN ATORVASTATIN CALCIUM 10 MG ORAL TABLET completed daily - Willie Roth RN SOCIAL HISTORY Date Observation Value Provider drug use no Porfirio Booker MD alcohol use, average drinks per day social Porfirio Booker MD alcohol use yes Porfirio Booker MD passive cigarette sm khalida exposure no Porfirio Booker MD smoking status Never smoker Porfirio Booker MD drug use no Porfirio Booker MD alcohol use, average drinks per day social Porfirio Booker MD alcohol use yes Porfirio Booker MD passive cigarette sm khalida exposure no Porfirio Booker MD smoking status Never smoker Porfirio Booker MD drug use no Porfirio Booker MD alcohol use, average drinks per day social Porfirio Booker MD alcohol use yes Porfirio Booker MD passive cigarette sm khalida exposure no Porfirio Booker MD smoking status Never smoker Porfirio Booker MD drug use no Ingris Ventimig america [facility] alcohol use, average drinks per day social Ingris Ventimiglia [facility] alcohol use yes Ingris Ventimig america PAPER REELER smoking status Never smoker Ingris araujo PAPER REELER social history E&M Marital Statu s: Single P atient has never smoked. Smoking History: P atient has never smoked. Porfirio Booker MD social history reviewed E&M revi ewed - no changes required Porfirio Booker MD passive cigarette sm khalida exposure no Ruth Martin smoking status Never smoker Ruth burks drug use no Porfirio Booker MD alcohol use no Porfirio Booker MD social history E&M Marital Statu s: Single P atient has never smoked. Smoking History: P atient has never smoked. Porfirio Booker MD social history reviewed E&M revi ewed - no changes required Porfirio Booker MD passive cigarette sm khalida exposure no Ruth Salazar smoking status Never smoker Ruth burks smoking status Never smoker Porfirio Booker MD social history E&M Marital Statu s: Single P atient has never smoked. Smoking History: P atmarguerite has never smoked. Porfirio Booker MD social history reviewed E&M revi ewed - no changes required Porfirio Booker MD passive cigarette sm khalida exposure no Tonsha Tierney social history E&M Marital Statu s: Single P atmarguerite has never smoked. Smoking History: P atient has never smoked. Porfirio Booker MD social history reviewed E&M revi ewed - no changes required Porfirio Booker MD alcohol use no Ruth Liliana lder drug use no Ruth Liliana lder passive cigarette sm khalida exposure no Ruth Martin smoking status Never smoker Ruth Angulo kimmie social history reviewed E&M revi ewed - no changes required Porfirio Booker MD alcohol use no Ruth Liliana lder drug use no Ruth Liliana lder passive cigarette sm khalida exposure no Ruth Rodriguezrenpolyghislaine smoking status Never smoker Ruth Angulo kimmie social history reviewed E&M revi ewed - no changes required Porfirio Booker MD alcohol use no Ruth Ford lder drug use no Ruth Ford valdoer passive cigarette sm khalida exposure no Ruth Rodriguezrenpolyghislaine smoking status Never smoker Ruth Angulo kimmie number of grandchildren Porfirio Booker MD U sheng Booker MD social history reviewed E&M revi ewed - no changes required Porfirio Booker MD alcohol use no Cosme Mendes nson drug use no Cosme callaway passive cigarette sm khalida exposure no Cosme Harp smoking status Never smoker Cosme Caceres social history reviewed E&M revi ewed - no changes required Porfirio Booker MD alcohol use no Cosme Mendes nson drug use no Cosme Mendes nson passive cigarette sm khalida exposure no Cosme Harp smoking status Never smoker Cosme Caceres social history reviewed E&M revi ewed - no changes required Porfirio Booker MD alcohol use no CosmeRoberta Mendes nson drug use no Cosme maoon passive cigarette sm khalida exposure no Cosme Harp smoking status Never smoker Cosme Caceres social history reviewed E&M revi ewed - no changes required Porfirio Booker MD smoking status Never smoker Ash Gely barkley social history E&M Marital Statu s: Single P atient has never smoked. Smoking History: P atient has never smoked. Porfirio Booker MD social history reviewed E&M revi ewed - no changes required Porfirio Booker MD drug use no Porfirio Booker MD passive cigarette sm khalida exposure no Porfirio Booker MD smoking status Never smoker Porfirio Booker MD social history reviewed E&M reviewed Porfirio Booker MD drug use no Willie Roth RN passive cigarette sm khalida exposure no Willie Roth RN social history reviewed E&M reviewed Willie Roth RN social history E&M Marital Status: Single Porfirio Booker MD social history reviewed E&M reviewed Porfirio Booker MD smoking status never smoker Gema husain FUNCTIONAL STATUS Date Observation Value Provider HRA, CV Assess/Plan, Angina (inactive) Management Plan continue current therapy Porfirio Booker MD HRA, CV Assess/Plan, Angina (inactive) Management Plan continue current therapy Ingris LOVELACE HRA, CV Assess/Plan, Angina (inactive) Management Plan continue current therapy Porfirio Booker MD HRA, CV Assess/Plan, Angina (inactive) Management Plan continue current therapy Porfirio Booker MD HRA, CV Assess/Plan, Angina (inactive) Management Plan continue current therapy Porfirio Booker MD HRA, CV Assess/Plan, Angina (inactive) Management Plan continue current therapy Lauren Lemons MD HRA, CV Assess/Plan, Angina (inactive) Management Plan continue current therapy Porfirio Booker MD HRA, CV Assess/Plan, Angina (inactive) Management Plan continue current therapy Porfirio oBoker MD HRA, CV Assess/Plan, Angina (inactive) Management Plan continue current therapy Porfirio Booker MD MENTAL STATUS Date Observation Value Provider assessment of judgme nt and insight E&M Alert and oriented to time, place and person. Mood and affect are normal. Willie Roth RN assessment of judgme nt and insight E&M Alert and oriented to time, place and person. Mood and affect are normal. Willie Roth RN assessment of judgme nt and insight E&M Alert and oriented to time, place and person. Mood and affect are normal. Porfirio Booker MD FAMILY HISTORY Family Member Condition First Degree Blood Relative No Known Fam daniel History INSURANCE PROVIDERS Payer name Policy type / Coverage type [place] red green party ID [id number] ADVANCE DIRECTIVES Name Date DISCUSSED - NO DECISION MADE TREATMENT PLAN Date Name Performer [id number],C,m ild per last sleep study in 2016. CPAP not covered by his plan. Can plan f/u sleep eval Ingrisfernando Rayodoni [facility] [id number],C,w ith bioprosthetic AVR. No murmur noted on exam. Will do f/u echo for further evaluation Ingrisfernando Rayodoni [facility] [id number],C,n oted on last echo at 4.99. Will do f/u echo and get better BP control Ingrisfernando Rayodoni [facility] [id number],C,B P 161/103. Uncontrolled at visit today. Discussed importance of compliance with medications and avoiding OTC NSAIDs and cold/flu medications. We will increase his coreg to 12.5mg BID and add lasix 20 mg daily. Will return in 2 weeks or sooner if needed. Have asked him to monitor BP at home and bring readings to next visit H is updated medication list for this problem includes: Coreg 12.5 Mg Tablet (Carvedilol) ..... 1 tablet by mouth twice a day take 1 tablet by mouth twice daily Lasix 20 Mg Tablet (Furosemide) ..... Take 1 tablet by mouth once a day Losartan 50 Mg Tablet (Losartan) ..... Take 1 tablet by mouth once daily Orders: E KG (CPT-29522) 9 9214 MOD 30-39min (CPT-99234) C omplete Echo (CPT-19614) S tress Exercise Cardiolite (CPT-97502) C OMPREHENSIVE METABOLIC PANEL, W/EGFR (20423) B TYPE NATRIURETIC PEPTIDE (BNP) (43920) C RP, high sensitivity (32790) L IPID PANEL (7600) L ipoprotein (a) (447203) C BC (INCLUDES DIFF/PLT) (6399) Ingris Avila [facility] [id number],C,E tiology unclear at this time. May be secondary to his elevated BP. EKG reviewed with Dr. Lemons and no acute ST/T wave changes. Patient has cough and some SOB concerning for volume overload. We will do labs, echo and stress test for further evaluation. Last cath was in 2013 and had mild non-obstructive CAD at that time. Will return post testing or sooner if needed. H is updated medication list for this problem includes: Coreg 12.5 Mg Tablet (Carvedilol) ..... 1 tablet by mouth twice a day take 1 tablet by mouth twice daily Ingris Avila [facility] [id number],S,H is last measurements are around 4.8 cm we will check an echo and a CTA in august Porfiiro Booker MD [id number],S, H is updated medication list for this problem includes: Aspirin Low Dose 81 Mg Tablet,delayed Release (/ec) (Aspirin) ..... Take 1 tablet by mouth once a day Coreg 6.25 Mg Tablet (Carvedilol) ..... Take 1 tablet by mouth twice a day Porfirio Booker MD [id number],S, Porfirio Booker MD [id number],S, H is updated medication list for this problem includes: Losartan 50 Mg Tablet (Losartan) ..... Take 1 tablet by mouth once a day BP today: 112/90 P rior BP: 148/100 (08/09/2020) Labs Reviewed: C reat: 0.85 (07/08/2012) Porfirio Booker MD Cardiology Porfirio Booker MD Cardiology: S table. Continue medical therapy. T his visit has been a part of the consistent, comprehensive, and ongoing management of the chronic medical condition(s) listed above for the patient. H is updated medication list for this problem includes: Carvedilol 12.5 Mg Tablet (Carvedilol) ..... Take 1 tablet by mouth twice daily Porfirio Booker MD Cardiology Porfirio Booker MD Cardiology:Recent ep isode of hypotension l osartan and lasix held His updated medication list for this problem includes: Carvedilol 12.5 Mg Tablet (Carvedilol) ..... Take 1 tablet by mouth twice daily BP today: 111/78 P rior BP: 162/114 (02/04/2024) Labs Reviewed: C reat: 0.85 (07/08/2012) Porfirio Booker MD Cardiology:s/p aorti c root replacement and [facility] metal aortic valve placement by Dr. Sam Lieberman ill need ABx prophylaxis prior to having dental work I NR being managed by [facility], but patient would like to have INR managed by my office for convenience Porfirio Booker MD Cardiology: m ild per last sleep study in 2017. CPAP not covered by his plan. Porfirio Booker MD Cardiology:Had AVR Porfirio Booker MD Cardiology: H is updated medication list for this problem includes: Carvedilol 12.5 Mg Tablet (Carvedilol) ..... Take 1 tablet by mouth twice daily Furosemide 20 Mg Tablet (Furosemide) ..... Take 1 tablet by mouth once daily Losartan 50 Mg Tablet (Losartan) ..... Take 1 tablet by mouth once daily BP today: 162/114 P rior BP: 142/94 (12/24/2023) Labs Reviewed: C reat: 0.85 (07/08/2012) Porfirio Booker MD Cardiology:Stable. C ontinue medical therapy. T his visit has been a part of the consistent, comprehensive, and ongoing management of the chronic medical condition(s) listed above for the patient. H is updated medication list for this problem includes: Carvedilol 12.5 Mg Tablet (Carvedilol) ..... Take 1 tablet by mouth twice daily Porfirio Booker MD Cardiology:5.22 cm P atient has been referred to see Dr. De Souza at [facility] for evaluation on treatment options T his visit has been a part of the consistent, comprehensive, and ongoing management of the chronic medical condition(s) listed above for the patient. Porfirio Booker MD Cardiology: H is updated medication list for this problem includes: Losartan 50 Mg Tablet (Losartan) ..... Take 1 tablet by mouth once daily Furosemide 20 Mg Tablet (Furosemide) ..... Take 1 tablet by mouth once daily Carvedilol 12.5 Mg Tablet (Carvedilol) ..... Take 1 tablet by mouth twice daily BP today: 142/94 P rior BP: 161/103 (08/26/2022) Labs Reviewed: C reat: 0.85 (07/08/2012) Porfirio Booker MD Cardiology: m ild per last sleep study in 2016. CPAP not covered by his plan. Can plan f/u sleep eval Porfirio Booker MD Cardiology:Check CT and an echo Porfirio Booker MD Cardiology:Chest bouchra n is atypical, likely related to anxiety, sees psych M ay be related to his AVR His updated medication list for this problem includes: Carvedilol 12.5 Mg Tablet (Carvedilol) ..... Take 1 tablet by mouth twice daily Porfirio Booker MD Cardiology:Check ech o to asses bioprosthetic aortic valve function Porfirio Booker MD Cardiology:Check CT to evaluate the size of his aortic root Porfirio Booker MD Cardiology:mild per last sleep study in 2016. CPAP not covered by his plan. Can plan f/u sleep eval Ingris Ventimiglia [facility] Cardiology:with biop rosthetic AVR. No murmur noted on exam. Will do f/u echo for further evaluation Ingris Avila [facility] Cardiology:noted on last echo at 4.99. Will do f/u echo and get better BP control Ingris Avila [facility] Cardiology:BP 161/10 3. Uncontrolled at visit today. Discussed importance of compliance with medications and avoiding OTC NSAIDs and cold/flu medications. We will increase his coreg to 12.5mg BID and add lasix 20 mg daily. Will return in 2 weeks or sooner if needed. Have asked him to monitor BP at home and bring readings to next visit H is updated medication list for this problem includes: Coreg 12.5 Mg Tablet (Carvedilol) ..... 1 tablet by mouth twice a day take 1 tablet by mouth twice daily Lasix 20 Mg Tablet (Furosemide) ..... Take 1 tablet by mouth once a day Losartan 50 Mg Tablet (Losartan) ..... Take 1 tablet by mouth once daily Orders: E KG (CPT-68818) 9 9214 MOD 30-39min (CPT-79202) C omplete Echo (CPT-13984) S tress Exercise Cardiolite (CPT-21150) C OMPREHENSIVE METABOLIC PANEL, W/EGFR (38229) B TYPE NATRIURETIC PEPTIDE (BNP) (78159) C RP, high sensitivity (22376) L IPID PANEL (7600) L ipoprotein (a) (723367) C BC (INCLUDES DIFF/PLT) (6399) Ingris Avila [facility] Cardiology:Etiology unclear at this time. May be secondary to his elevated BP. EKG reviewed with Dr. Lemons and no acute ST/T wave changes. Patient has cough and some SOB concerning for volume overload. We will do labs, echo and stress test for further evaluation. Last cath was in 2013 and had mild non-obstructive CAD at that time. Will return post testing or sooner if needed. H is updated medication list for this problem includes: Coreg 12.5 Mg Tablet (Carvedilol) ..... 1 tablet by mouth twice a day take 1 tablet by mouth twice daily Ingris Avila [facility] Cardiology:His last measurements are around 4.8 cm we will check an echo and a CTA in august Porfirio Booker MD Cardiology: H is updated medication list for this problem includes: Aspirin Low Dose 81 Mg Tablet,delayed Release (dr/ec) (Aspirin) ..... Take 1 tablet by mouth once a day Coreg 6.25 Mg Tablet (Carvedilol) ..... Take 1 tablet by mouth twice a day Porfirio Booker MD Cardiology Pofririo Booker MD Cardiology: H is updated medication list for this problem includes: Losartan 50 Mg Tablet (Losartan) ..... Take 1 tablet by mouth once a day BP today: 112/90 P rior BP: 148/100 (08/09/2020) Labs Reviewed: C reat: 0.85 (07/08/2012) Porfirio Booker MD Cardiology Follow up :Recently had effexor increased by psychologist Porfirio Booker MD Cardiology Follow up :Echo today revealed aortic root is 5.0cm, is being monitored by annual CTs at [place] for this issue. Porfirio Booker MD Cardiology Follow up :Will increase Losartan to 50mg BP today: 148/100 P rior BP: 122/100 (06/24/2018) Labs Reviewed: C reat: 0.85 (07/08/2012) Porfirio Booker MD Cardiology Follow up :Stress test, echo were normal. Patient has rare R sided chest pains that do not appear to be cardiac in nature. Will continue medical management. Porfirio Booker MD Cardiology:Will incr ease Losartan to 25mg given that BP is elevated today. Prior BP: 122/100 (06/24/2018) Labs Reviewed: C reat: 0.85 (07/08/2012) Porfirio Booker MD Cardiology:Appears t o be functioning fine, but as above will need an echo. Porfirio Booker MD Cardiology Porfirio Booker MD Cardiology:Will obta in routine echo and stress test. Patient is experiencing mild intermittent angina. Porfirio Booker MD Cardiology Follow up :Pt has bovine valve replacement. Cont. ASA. Porfirio Booker MD Cardiology Follow up : B P today: 122/100 P rior BP: 120/86 (06/18/2017) Labs Reviewed: C reat: 0.85 (07/08/2012) Porfirio Booker MD Cardiology Follow up :measured 4.6x4.7, unchanged from 1 year prior. Will repeat echo in 1 year. Porfirio Booker MD Cardiology Follow up :appears st able. 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 A dvised patient on weight loss and diet to improve symptoms of fatigue. Porfirio Booker MD Cardiology:S/p AVR. W ill check echo. Porfirio Booker MD Cardiology Porfirio Booker MD Cardiology:Patient h as mild sleep apnea and will reschedule a titration study as they lost the data from his original one. Porfirio Booker MD Cardiology:4.8x4.8cm on CT , repeat CT in 9 months R esume losartan at 12.5mg daily. Porfirio Booker MD Cardiology:He discon tinued his Losartan at his last visit with his PCP due to headaches. I believe he would benefit from taking Losartan as it can reduce the enlargment of aneurysm. W ill try half of 25mg tab daily. BP today: 120/86 P rior BP: 142/102 (03/17/2017) Labs Reviewed: C reat: 0.85 (07/08/2012) Porfirio Booker MD Cardiology Follow up Lauren elliott MD Cardiology Follow up:do sleep st udy add losartan Lauren Lemons MD Cardiology Follow up:add statin Lauren Lemons MD Cardiology Follow up :4.8x4.8cm on CT will start losartan, repeat CT in 3 months Lauren Lemons MD Cardiology Follow up :Well controlled on current medications. BP today: 122/86 P rior BP: 128/85 (01/08/2017) Labs Reviewed: C reat: 0.85 (07/08/2012) Porfirio Booker MD Cardiology Follow up :Still planning to undergo CT scan to evaluate dilation of the ascending aorta. Porfirio Booker MD Cardiology Follow up :This is much more likely to be musculoskeletal from the extra physical work that he has been doing and it is nothing to worry about. Porfirio Booker MD Cardiology:On last e cho was 4.33 cm. Will order CTA chest with focus on thoracic aorta. Porfirio Booker MD Cardiology:Stable. On asa. Porfirio Booker MD Cardiology: B P today: 128/85 P rior BP: 124/80 (01/11/2016) Labs Reviewed: C reat: 0.85 (07/08/2012) Porfirio Booker MD Cardiology:Only on e xertion. Remains physically active, but states he has a poor diet. Has gained 5 lbs in the past year. Each may be the reason for his MANUEL. Porfirio Booker MD Cardiology:124/80 Porfirio Del Castillo Cardiology Porfirio Booker MD Cardiology Porfirio Booker MD Cardiology Porfirio Booker MD Cardiology:off lisin opril bp is fine will stop the lisinopril Porfirio Booker MD Cardiology Porfirio Booker MD hos follow up Porfirio Booker MD :128/86 T he following medications were removed from the medication list: Metoprolol Tartrate 25 Mg Tabs (Metoprolol tartrate) ..... 1 tab twice daily His updated medication list for this problem includes: Lisinopril 5 Mg Tabs (Lisinopril) ..... One tab daily Aspirin 81 Mg Tabs (Aspirin) ..... One tab. daily Porfirio Booker MD : H is updated medication list for this problem includes: Lisinopril 5 Mg Tabs (Lisinopril) ..... One tab daily Aspirin 81 Mg Tabs (Aspirin) ..... One tab. daily Metoprolol Tartrate 25 Mg Tabs (Metoprolol tartrate) ..... 1 tab twice daily Porfirio Booker MD : H is updated medication list for this problem includes: Lisinopril 5 Mg Tabs (Lisinopril) ..... One tab daily Metoprolol Tartrate 25 Mg Tabs (Metoprolol tartrate) ..... 1 tab twice daily BP today: / Prior BP: 114/64 (09/30/2012) H CT: 35.1 (07/08/2012) Platelets: 238 (07/08/2012) C reat: 0.85 (07/08/2012) Na+: 140 (07/08/2012) K+: 4.4 (07/08/2012) Cardiac Cath: Severe aortic stenosis uncrossable with a wire with a 125 mm gradient by echo. 4+ aortic insufficiency. Minimal CAD with 25% stenosis in the RCA. - [facility] (07/15/2012) Porfirio Booker MD : H is updated medication list for this problem includes: Aspirin 81 Mg Tabs (Aspirin) ..... One tab. daily Carotid Duplex Scan: N ormal carotid duplex examination. Vertebral flow is antegrade bilaterally. - E (07/16/2012) Porfirio Booker MD HOSPITAL FOLLOW UP: H is updated medication list for this problem includes: Lisinopril 5 Mg Tabs (Lisinopril) ..... One tab. daily BP today: 114/64 Prior BP: 127/85 (07/13/2012) H CT: 35.1 (07/08/2012) Platelets: 238 (07/08/2012) C reat: 0.85 (07/08/2012) Na+: 140 (07/08/2012) K+: 4.4 (07/08/2012) Cardiac Cath: Severe aortic stenosis uncrossable with a wire with a 125 mm gradient by echo. 4+ aortic insufficiency. Minimal CAD with 25% stenosis in the RCA. - [facility] (07/15/2012) Porfirio Booker MD HOSPITAL FOLLOW UP: H is updated medication list for this problem includes: Lisinopril 5 Mg Tabs (Lisinopril) ..... One tab. daily BP today: 114/64 Prior BP: 127/85 (07/13/2012) C ardiac Cath: Severe aortic stenosis uncrossable with a wire with a 125 mm gradient by echo. 4+ aortic insufficiency. Minimal CAD with 25% stenosis in the RCA. - [facility] (07/15/2012) H CT: 35.1 (07/08/2012) Platelets: 238 (07/08/2012) C reat: 0.85 (07/08/2012) Na+: 140 (07/08/2012) K+: 4.4 (07/08/2012) SGOT (AST): 18 (07/08/2012) SGPT (ALT): 25 (07/08/2012) Porfirio Booker MD follow up: H is updated medication list for this problem includes: Lisinopril 5 Mg Tabs (Lisinopril) ..... One tab. daily n eeds a card cath O rders: C ardiac Cath - Left - GC (*) C arotid Duplex Bilateral (CPT-59735) Porfirio Booker MD follow up: H is updated medication list for this problem includes: Lisinopril 5 Mg Tabs (Lisinopril) ..... One tab. daily Orders: E KG (CPT-46401) C ardiac Cath - Left - GC (*) C arotid Duplex Bilateral (CPT-66301) Porfirio Booker MD Date Name Cardiac Rehab Complete Echo CT Angio Chest (Aort a) CBC (INCLUDES DIFF/P LT) Lipoprotein (a) LIPID PANEL CRP, high sensitivit y B TYPE NATRIURETIC P EPTIDE (BNP) COMPREHENSIVE METABO LIC PANEL, W/EGFR Stress Exercise Card iolite Complete Echo CT Angio Chest (Aort a) Complete Echo Complete Echo Complete Echo Stress Routine Complete Echo Sleep Study Titratio n Complete Echo CT Angio, chest Complete Echo Complete Echo Complete Echo Complete Echo Complete Echo Complete Echo Carotid Duplex Bilat eral Cardiac Cath - Left - GC HISTORY OF PROCEDURES Procedure Date Procedure Name Provider Procedure Notes S tatus Do Booker MD completed Do Flores MD complete d Do Booker MD completed Do Booker MD completed Do Booker MD completed Do Lino MD completed Do Farnsworth MD complete d Do Flores MD complete d Do Lino MD completed Complex e/m visit add on Porfirio Booker MD completed Complex e/m visit add on Porfirio Booker MD completed EKG Porfirio Booker MD completed Complex e/m visit add on Porfirio Booker MD completed EKG Porfirio Booker MD completed EKG Luis Farnsworth MD complete d EKG Porfirio Booker MD completed EKG Porfirio Booker MD completed SNOMED-CT: 64696240 Physical Exam, Performed: Pulse Exam of Foot Porfirio Booker MD completed SNOMED-CT: 677315489 738565 Current Medications Documented Porfirio Booker MD completed EKG Lauren Lemons MD completed SNOMED-CT: 208424562 539785 Current Medications Documented Lauren Lemons MD completed SNOMED-CT: 89830905 Physical Exam, Performed: Pulse Exam of Foot Porfirio Booker MD completed SNOMED-CT: 688059928 972202 Current Medications Documented Porfirio Booker MD completed SNOMED-CT: 81644743 Physical Exam, Performed: Pulse Exam of Foot Porfirio Booker MD completed EKG Porfirio Booker MD completed SNOMED-CT: 818096108 507908 Current Medications Documented Porfirio Booker MD completed SNOMED-CT: 40617821 Physical Exam, Performed: Pulse Exam of Foot Porfirio Booker MD completed SNOMED-CT: 805646034 175453 Current Medications Documented Porfirio Booker MD completed SNOMED-CT: 621584219 024634 Current Medications Documented Porfirio Booker MD completed EKG Porfirio Booker MD completed EKG Porfirio Booker MD completed
--- OUTSIDE RECORDS SUMMARY | 2024-07-03 19:14 | XMS_ITS | Patient Health Summary ---
Author Organization [facility] Address [address] [place] [address] Care Team Providers Care Pediatric Hospitalist Name Role Phone Shun Simpson MD Primary Care Provider Note from [facility] [place],non-owned Affiliates and Associated Physician Practices is amultiple site organization consisting of ambulatory clinics and hospital sitesin [place], [place], [place] and [place]. This disclosure is being madepursuant to the Care Everywhere program and may not contain all information available regarding this patient. Last updated 18.[facility] Allergies No known active allergies Medications * Be aware that medications may not be up to date on this document. Alwaysverify current medications with the patient. * busPIRone (BUSPAR) 10 MG tablet(Started 10/28/2018) Take 10 mg by mouth 2 times daily 5 refills left * clonazePAM (KLONOPIN) 1 MG tablet(Started 01/29/2019) Take 1 mg by mouth 2 times daily 5 refills left * atorvastatin (LIPITOR) 20 MG tablet(Started 02/02/2019) Take 20 mg by mouth once daily 4 refills left * losartan (COZAAR) 25 MG tablet(Started 02/14/2019) TAKE 1 2 (ONE HALF) TABLET BY MOUTH ONCE DAILY 1 refill left * venlafaxine XR 24hr (EFFEXOR XR) 150 MG capsule(Started 01/25/2019) Take 150 mg by mouth once daily 5 refills left Social History Tobacco Use Types Packs/Day Years [...] Mass Index 32.89 02/19/2019 12:13 PM CDT Procedures * IMAGING/RADIOLOGY/XRAY RESULTS ORDER(Performed 04/01/2018) Results * IMAGING/RADIOLOGY/XRAY RESULTS ORDER (04/01/2018) Anatomical Region Laterality Modality Other Rashaad Casper MD IMAGING Care Teams Pediatric Hospitalist Relationship Specialty Start Date End Date Shun Simpson MD [address] [place] [id number] PCP - General Gastroenterology 01/10/19
--- OUTSIDE RECORDS SUMMARY | 2024-07-03 19:14 | XMS_ITS | Data Portability ---
Author Organization DENAE Marc CRUZ Address [address] [facility] [address] Care Team Providers Care Parole Board Member Name Role Phone SHUN MORIN Primary Care Provider [phone] Assessment No assessment recorded. Plan of Treatment Reminders Order Date Submit Date Provider Last Modified By Organization Details Last Modified Time Details Appointments None recorded. Lab CMP, serum or plasma 2020 021 [facility], [address] [place] [address], [facility] [address], [place], [address], 1 06:12:05 CBC 2020 021 [facility], [facility] [facility], [address], [place], [address], 1 06:12:06 lipid panel, serum 2020 021 [facility], [address] [place] [address], [address], [place], [address], 1 06:12:07 PSA, total, serum or plasma 2019 020 [facility], [address] [facility], [address], [place], [address], 0 13:09:22 CMP, serum or plasma 2019 020 [facility], [facility] [facility], [address], [place], [address], 0 13:09:20 CBC 2019 020 [facility], Chris [address], [address], [place], [address], 0 13:09:21 lipid panel, serum 2019 020 [facility], Chris [address], [address], [place], [address], 0 13:09:21 TSH + free T4, serum 2019 020 [facility], Chris [address], [address], [place], [address], 0 13:09:19 PSA, serum or plasma 2017 018 Chris ODONNELL, [address], [place], [address], 8 08:20:50 lipid panel, serum 2016 017 Chris ODONNELL, [address], [place], [address], 7 07:14:21 CMP, serum or plasma 2016 017 [facility], Chris [address], [address], [place], [address], 7 07:14:20 TSH + free T4, serum 2016 017 [facility], Chris [address], [address], [place], [address], 7 07:14:20 CBC 2016 017 [facility], Chris [address]ont, [address], [place], [address], 7 07:14:20 Referral gastroenter ologist referral - REcent diverticulo sis flair 2021 022 [email or web address] Not available 2 17:45:19 Procedures None recorded. Surgeries None recorded. Imaging XR, chest, 2 view 2020 021 [facility] [address] [place], [address], 1 08:42:32 XR, ribs, unilateral 2020 021 [facility] ([facility] [address] [place], [address], 1 08:44:36 Medication Orders None recorded. Patient TargetsNo targets recorded. Patient InstructionsNo instructions recorded. Reason for Referral Pre Billing Specialist Referral for History of diverticulitis REcent diverticulosis flair Referring Physician: Shun Morin, Internal Medicine, Encounter Date: 05/06/2021 Results Created Date Observation Date Name Description Value Unit Range Abnormal Flag Note LastModifiedBy Organization Detail LastModifiedTime 03/31/20 17 04/01/2017 TSH + free T4, serum TSH 1.080 uIU/m L 0.450- 4.500 Not Available [facility] ([facility]) [address] [place], [address], 04/01/2017 07:14:19 03/31/20 17 04/01/2017 TSH + free T4, serum T4,free(dire ct) 1.14 NG/dL 0.82-1 .77 Not Available [facility] ([facility]) [address] [place], [address], 04/01/2017 07:14:19 03/31/20 17 04/01/2017 CMP, serum or plasm a glucose, serum 93 mg/dL 65-99 Not Available [facility] ([facility]) [address] [place], [address], 04/01/2017 07:14:20 03/31/20 17 04/01/2017 CMP, serum or plasm a BUN 20 mg/dL 6-24 Not Available [facility] ([facility]) [address] [facility], [place], [address], 04/01/2017 07:14:20 03/31/20 17 04/01/2017 CMP, serum or plasm a creatinine, serum 1.02 mg/dL 0.76-1 .27 Not Available [facility] ([facility]) [address] [facility], [place], [address], 04/01/2017 07:14:20 03/31/20 17 04/01/2017 CMP, serum or plasm a eGFR if nonafricn AM 88 mL/mi n/1.7 3 >59 Not Available [facility] ([facility]) [address] [facility], [place], [address], 04/01/2017 07:14:20 03/31/20 17 04/01/2017 CMP, serum or plasm a eGFR if africn AM 102 mL/mi n/1.7 3 >59 Not Available [facility] ([facility]) [address] [facility], [place], [address], 04/01/2017 07:14:20 03/31/20 17 04/01/2017 CMP, serum or plasm a BUN/creatini ne ratio 20 9-20 Not Available [facility] ([facility]) [address] [facility], [place], [address], 04/01/2017 07:14:20 03/31/20 17 04/01/2017 CMP, serum or plasm a sodium, serum 142 mmol/ L 134-14 4 Not Available [facility] ([facility]) [address] [place] [address], [address], 04/01/2017 07:14:20 03/31/20 17 04/01/2017 CMP, serum or plasm a potassium, serum 4.7 mmol/ L 3.5-5. 2 Not Available [facility] ([facility]) [address] [facility] [place], [address], 04/01/2017 07:14:20 03/31/20 17 04/01/2017 CMP, serum or plasm a chloride, serum 104 mmol/ L 96-106 Not Available [facility] ([facility]) [address] [facility] [place], [address], 04/01/2017 07:14:20 03/31/20 17 04/01/2017 CMP, serum or plasm a carbon dioxide, total 22 mmol/ L - Not Available [facility] ([facility]) [address] [facility] [place], [address], 04/01/2017 07:14:20 03/31/20 17 04/01/2017 CMP, serum or plasm a calcium, serum 9.5 mg/dL 8.7-10 .2 Not Available [facility] ([facility]) [address] [place], [address], 04/01/2017 07:14:20 03/31/20 17 04/01/2017 CMP, serum or plasm a protein, total, serum 6.5 g/dL 6.0-8. 5 Not Available [facility] ([facility]) [address] [place], [address], 04/01/2017 07:14:20 03/31/20 17 04/01/2017 CMP, serum or plasm a albumin, serum 4.2 g/dL 3.5-5. 5 Not Available [facility] ([facility]) [address] [place] [place], [address], 04/01/2017 07:14:20 03/31/20 17 04/01/2017 CMP, serum or plasm a globulin, total 2.3 g/dL 1.5-4. 5 Not Available [facility] ([facility]) [address] [place], [address], 04/01/2017 07:14:20 03/31/20 17 04/01/2017 CMP, serum or plasm a A/G ratio 1.8 1.2-2. 2 Not Available [facility] ([facility]) [address] [place], [address], 04/01/2017 07:14:20 03/31/20 17 04/01/2017 CMP, serum or plasm a bilirubin, total 0.3 mg/dL 0.0-1. 2 Not Available [facility] ([facility]) [address] [place], [address], 04/01/2017 07:14:20 03/31/20 17 04/01/2017 CMP, serum or plasm a alkaline phosphatase, S 44 IU/L 39-117 Not Available [facility] ([facility]) [address] [place], [address], 04/01/2017 07:14:20 03/31/20 17 04/01/2017 CMP, serum or plasm a AST (SGOT) 27 IU/L 0-40 Not Available [facility] ([facility]) [address] [place], [address], 04/01/2017 07:14:20 03/31/20 17 04/01/2017 CMP, serum or plasm a ALT (SGPT) 35 IU/L 0-44 Not Available [facility] ([facility]) [address] [place], [address], 04/01/2017 07:14:20 03/31/20 17 04/01/2017 CBC WBC 6.6 x10e3 /uL 3.4-10 .8 Not Available [facility] ([facility]) [address] [place], [address], 04/01/2017 07:14:20 03/31/20 17 04/01/2017 CBC RBC 4.55 x10e6 /uL 4.14-5 .80 Not Available [facility] ([facility]) [address] [place] [place], [address], 04/01/2017 07:14:20 03/31/20 17 04/01/2017 CBC hemoglobin 13.1 g/dL 12.6-1 7.7 Eff ectiv e Decem 2016 the refer ence inter juanjo for Hemog lobin MALES only will be capone ing to: Males 13-15 years : 12.6 - 17.7 Males >15 years : 13.0 - 17.7 Not Available [facility] ([facility]) [address] [place], [address], 04/01/2017 07:14:20 03/31/20 17 04/01/2017 CBC hematocrit 40.3 % 37.5-5 1.0 Not Available [facility] ([facility]) [address] [place], [address], 04/01/2017 07:14:20 03/31/20 17 04/01/2017 CBC MCV 89 fL 79-97 Not Available [facility] ([facility]) [address] [place], [address], 04/01/2017 07:14:20 03/31/20 17 04/01/2017 CBC MCH 28.8 pg 26.6-3 3.0 Not Available [facility] ([facility]) [address] [place], [address], 04/01/2017 07:14:20 03/31/20 17 04/01/2017 CBC MCHC 32.5 g/dL 31.5-3 5.7 Not Available [facility] ([facility]) [address] [place], [address], 04/01/2017 07:14:20 03/31/20 17 04/01/2017 CBC RDW 13.0 % 12.3-1 5.4 Not Available [facility] ([facility]) [address] [place], [address], 04/01/2017 07:14:20 03/31/20 17 04/01/2017 CBC platelets 318 x10e3 /uL 150-37 9 Not Available [facility] ([facility]) [address], [place], [address], 04/01/2017 07:14:20 03/31/20 17 04/01/2017 CBC NRBC PRACTICAL NURSING TEACHER Not Available [facility] ([facility]) [address] [facility], [place], [address], 04/01/2017 07:14:20 03/31/20 17 04/01/2017 lipid panel , serum cholesterol, total 147 mg/dL 100-19 9 Not Available [facility] ([facility]) [address] [facility] [place], [address], 04/01/2017 07:14:21 03/31/20 17 04/01/2017 lipid panel , serum triglyceride s 208 mg/dL 0-149 above high normal Not Available [facility] ([facility]) [address] [facility] [place], [address], 04/01/2017 07:14:21 03/31/20 17 04/01/2017 lipid panel , serum HDL cholesterol 44 mg/dL >39 Not Available [facility]) [address] [facility], [place], [address], 04/01/2017 07:14:21 03/31/20 17 04/01/2017 lipid panel , serum VLDL cholesterol gilmar 42 mg/dL 5-40 above high normal Not Available [facility] ([facility]) [address] [facility], [address], 04/01/2017 07:14:21 03/31/20 17 04/01/2017 lipid panel , serum LDL cholesterol calc 61 mg/dL 0-99 Not Available [facility] ([facility]) [address] [facility] [place], [address], 04/01/2017 07:14:21 03/31/20 17 04/01/2017 lipid panel , serum comment: PRACTICAL NURSING TEACHER Not Available [facility] ([facility]) [address] [facility], [place], [address], 04/01/2017 07:14:21 08/25/19 18 08/25/2017 PSA, serum or plasm a prostate specific Ag, serum 0.6 NG/mL 0.0-4. 0 Haydee ECLIA metho dolog y. Accor ding to the Ameri can Urolo gical Assoc iatio n, Serum PSA shoul d decre ase and remai n at undet ectab le level s after radic al prost atect saran. The AUA defin es bioch emica l recur rence as an initi al PSA value 0.2 ng/mL or great er follo wed by a subse quent confi rmato ry PSA value 0.2 ng/mL or great er. Value s obtai yeimy with diffe rent assay metho ds or kits canno t be used inter capone eably . Resul ts canno t be inter prete d as absol [place] evide nce of the prese nce or absen ce of [facility] se. Not Available [facility] ([facility]) [address] [facility], [place], [address], 08/25/2017 08:20:50 08/25/19 18 08/24/2017 pleas e note please note Commen t The date and/o r time of colle ction was not indic ated on the requi sitio n as requi red by state and [place] law. The date of recei pt of the speci men was used as the colle ction date if not suppl ied. Not Available [facility] ([facility]) [address] [facility], [place], [address], 08/25/2017 08:20:51 10/13/19 20 10/14/2019 TSH + free T4, serum TSH 1.150 uIU/m L 0.450- 4.500 Not Available [facility] ([facility]) [address] [facility], [place], [address], 10/14/2019 13:09:19 10/13/19 20 10/14/2019 TSH + free T4, serum T4,free(dire ct) 0.88 NG/dL 0.82-1 .77 Not Available [facility] ([facility]) [address] [place], [address], 10/14/2019 13:09:19 10/13/19 20 10/14/2019 CMP, serum or plasm a glucose 95 mg/dL 65-99 Not Available [facility] ([facility]) [address] [place], [address], 10/14/2019 13:09:20 10/13/19 20 10/14/2019 CMP, serum or plasm a BUN 18 mg/dL 6-24 Not Available [facility] ([facility]) [address] [place], [address], 10/14/2019 13:09:20 10/13/19 20 10/14/2019 CMP, serum or plasm a creatinine 0.90 mg/dL 0.76-1 .27 Not Available [facility] ([facility]) [address] [place], [address], 10/14/2019 13:09:20 10/13/19 20 10/14/2019 CMP, serum or plasm a eGFR if nonafricn AM 101 mL/mi n/1.7 3 >59 Not Available [facility] ([facility]) [address] [place], [address], 10/14/2019 13:09:20 10/13/19 20 10/14/2019 CMP, serum or plasm a eGFR if africn AM 116 mL/mi n/1.7 3 >59 Not Available [facility] ([facility]) [address] [place], [address], 10/14/2019 13:09:20 10/13/19 20 10/14/2019 CMP, serum or plasm a BUN/creatini ne ratio 20 9-20 Not Available [facility] ([facility]) [address] [place], [address], 10/14/2019 13:09:20 10/13/1910/14/2019 CMP, serum or plasm a sodium 141 mmol/ L 134-14 4 Not Available [facility] ([facility]) [address] [place], [address], 10/14/2019 13:09:20 10/13/19 20 10/14/2019 CMP, serum or plasm a potassium 4.8 mmol/ L 3.5-5. 2 Not Available [facility] ([facility]) [address] [place], [address], 10/14/2019 13:09:20 10/13/19 20 10/14/2019 CMP, serum or plasm a chloride 106 mmol/ L 96-106 Not Available [facility] ([facility]) [address] [place], [address], 10/14/2019 13:09:20 10/13/1910/14/2019 CMP, serum or plasm a carbon dioxide, total 24 mmol/ L 20-29 Not Available [facility] ([facility]) [address] [place], [address], 10/14/2019 13:09:20 10/13/19 20 10/14/2019 CMP, serum or plasm a calcium 9.6 mg/dL 8.7-10 .2 Not Available [facility] ([facility]) [address] [place], [address], 10/14/2019 13:09:20 10/13/1910/14/2019 CMP, serum or plasm a protein, total 7.0 g/dL 6.0-8. 5 Not Available [facility] ([facility]) [address] [place], [address], 10/14/2019 13:09:20 10/13/19 20 10/14/2019 CMP, serum or plasm a albumin 4.7 g/dL 4.0-5. 0 Not Available [facility] ([facility]) [address] [place] [place], [address], 10/14/2019 13:09:20 10/13/19 20 10/14/2019 CMP, serum or plasm a globulin, total 2.3 g/dL 1.5-4. 5 Not Available [facility] ([facility]) [address] [facility] [place], [address], 10/14/2019 13:09:20 10/13/19 20 10/14/2019 CMP, serum or plasm a A/G ratio 2.0 1.2-2. 2 Not Available [facility] ([facility]) [address] [place], [address], 10/14/2019 13:09:20 10/13/19 20 10/14/2019 CMP, serum or plasm a bilirubin, total 0.9 mg/dL 0.0-1. 2 Not Available [facility] ([facility]) [address] [place], [address], 10/14/2019 13:09:20 10/13/19 20 10/14/2019 CMP, serum or plasm a alkaline phosphatase 51 IU/L 39-117 Not Available [facility]) [address] [place], [address], 10/14/2019 13:09:20 10/13/19 20 10/14/2019 CMP, serum or plasm a AST (SGOT) 34 IU/L 0-40 Not Available [facility] ([facility]) [address] [place], [address], 10/14/2019 13:09:20 10/13/19 20 10/14/2019 CMP, serum or plasm a ALT (SGPT) 33 IU/L 0-44 Not Available [facility] ([facility]) [address] [place], [address], 10/14/2019 13:09:20 10/13/19 20 10/14/2019 CBC WBC 7.1 x10e3 /uL 3.4-10 .8 Not Available [facility] ([facility]) [address] [place], [address], 10/14/2019 13:09:21 10/13/19 20 10/14/2019 CBC RBC 5.06 x10e6 /uL 4.14-5 .80 Not Available [facility] ([facility]) [address] [place], [address], 10/14/2019 13:09:21 10/13/19 20 10/14/2019 CBC hemoglobin 14.9 g/dL 13.0-1 7.7 Not Available [facility] ([facility]) [address] [place], [address], 10/14/2019 13:09:21 10/13/1910/14/2019 CBC hematocrit 45.0 % 37.5-5 1.0 Not Available [facility] ([facility]) [address] [place], [address], 10/14/2019 13:09:21 10/13/1910/14/2019 CBC MCV 89 fL 79-97 Not Available [facility] ([facility]) [address] [place], [address], 10/14/2019 13:09:21 10/13/1910/14/2019 CBC MCH 29.4 pg 26.6-3 3.0 Not Available [facility] ([facility]) [address] [place], [address], 10/14/2019 13:09:21 10/13/1910/14/2019 CBC MCHC 33.1 g/dL 31.5-3 5.7 Not Available [facility] ([facility]) [address] [place], [address], 10/14/2019 13:09:21 10/13/19 20 10/14/2019 CBC RDW 13.2 % 11.6-1 5.4 Not Available [facility] ([facility]) [address] [facility], [place], [address], 10/14/2019 13:09:21 10/13/19 20 10/14/2019 CBC platelets 319 x10e3 /uL 150-45 0 Not Available [facility] ([facility]) [address] [facility], [place], [address], 10/14/2019 13:09:21 10/13/19 20 10/14/2019 CBC NRBC PRACTICAL NURSING TEACHER Not Available [facility] ([facility]) [address] [facility], [place], [address], 10/14/2019 13:09:21 10/13/19 20 10/14/2019 lipid panel , serum cholesterol, total 167 mg/dL 100-19 9 Not Available [facility] ([facility]) [address] [facility], [place], [address], 10/14/2019 13:09:21 10/13/19 20 10/14/2019 lipid panel , serum triglyceride s 180 mg/dL 0-149 above high normal Not Available [facility] ([facility]) [address] [place], [address], 10/14/2019 13:09:21 10/13/19 20 10/14/2019 lipid panel , serum HDL cholesterol 49 mg/dL >39 Not Available [facility]) [address] [place], [address], 10/14/2019 13:09:21 10/13/19 20 10/14/2019 lipid panel , serum VLDL cholesterol gilmar 36 mg/dL 5-40 Not Available [facility] ([facility]) [address] [place], [address], 10/14/2019 13:09:21 10/13/19 20 10/14/2019 lipid panel , serum LDL cholesterol calc 82 mg/dL 0-99 Not Available [facility] ([facility]) [address] [facility], [place], [address], 10/14/2019 13:09:21 10/13/19 20 10/14/2019 lipid panel , serum comment: PRACTICAL NURSING TEACHER Not Available [facility] ([facility]) [address] [facility], [place], [address], 10/14/2019 13:09:21 10/13/19 20 10/14/2019 lipid panel , serum LDL/HDL ratio 1.7 ratio 0.0-3. 6 LDL/H DL Ratio Men Women 1/2 Avg.R isk 1.0 1.5 Avg.R isk 3.6 3.2 2X Avg.R isk 6.2 5.0 3X Avg.R isk 8.0 6.1 Not Available [facility] ([facility]) [address] [facility], [place], [address], 10/14/2019 13:09:21 10/13/19 20 10/14/2019 PSA, total , serum or plasm a prostate specific Ag, serum 0.7 NG/mL 0.0-4. 0 [place]dee ECLIA metho dolog y. Accor ding to the Ameri can Urolo gical Assoc iatio n, Serum PSA shoul d decre ase and remai n at undet ectab le level s after radic al prost atect saran. The AUA defin es bioch emica l recur rence as an initi al PSA value 0.2 ng/mL or great er follo wed by a subse quent confi rmato ry PSA value 0.2 ng/mL or great er. Value s obtai yeimy with diffe rent assay metho ds or kits canno t be used inter capone eably . Resul ts canno t be inter prete d as absol [place] evide nce of the prese nce or absen ce of nazario hargrove disea se. Not Available [facility] ([facility]) [address] [facility], [place], [address], 10/14/2019 13:09:22 08/24/19 21 08/24/2020 CMP, serum or plasm a glucose 94 mg/dL 65-99 Not Available [facility] ([facility]) [address] [place], [address], 08/24/2020 06:12:05 08/24/19 21 08/24/2020 CMP, serum or plasm a BUN 13 mg/dL 6-24 Not Available [facility] ([facility]) [address] [place], [address], 08/24/2020 06:12:05 08/24/19 21 08/24/2020 CMP, serum or plasm a creatinine 1.02 mg/dL 0.76-1 .27 Not Available [facility] ([facility]) [address] [place], [address], 08/24/2020 06:12:05 08/24/19 21 08/24/2020 CMP, serum or plasm a eGFR if nonafricn AM 86 mL/mi n/1.7 3 >59 Not Available [facility] ([facility]) [address] [facility], [place], [address], 08/24/2020 06:12:05 08/24/19 21 08/24/2020 CMP, serum or plasm a eGFR if africn AM 99 mL/mi n/1.7 3 >59 Not Available [facility] ([facility]) [address] [place], [address], 08/24/2020 06:12:05 08/24/19 21 08/24/2020 CMP, serum or plasm a BUN/creatini ne ratio 13 9-20 Not Available [facility] ([facility]) [address] [place], [address], 08/24/2020 06:12:05 08/24/19 21 08/24/2020 CMP, serum or plasm a sodium 142 mmol/ L 134-14 4 Not Available [facility] ([facility]) [address] [place], [address], 08/24/2020 06:12:05 08/24/1908/24/2020 CMP, serum or plasm a potassium 5.0 mmol/ L 3.5-5. 2 Not Available [facility] ([facility]) [address] [place], [address], 08/24/2020 06:12:05 08/24/1908/24/2020 CMP, serum or plasm a chloride 105 mmol/ L 96-106 Not Available [facility] ([facility]) [address] [place], [address], 08/24/2020 06:12:05 08/24/1908/24/2020 CMP, serum or plasm a carbon dioxide, total 23 mmol/ L 20-29 Not Available [facility] ([facility]) [address] [place], [address], 08/24/2020 06:12:05 08/24/1908/24/2020 CMP, serum or plasm a calcium 9.5 mg/dL 8.7-10 .2 Not Available [facility] ([facility]) [address] [place], [address], 08/24/2020 06:12:05 08/24/1908/24/2020 CMP, serum or plasm a protein, total 7.4 g/dL 6.0-8. 5 Not Available [facility] ([facility]) [address] [place], [address], 08/24/2020 06:12:05 08/24/1908/24/2020 CMP, serum or plasm a albumin 4.7 g/dL 4.0-5. 0 Not Available [facility] ([facility]) [address] [place], [address], 08/24/2020 06:12:05 08/24/19 21 08/24/2020 CMP, serum or plasm a globulin, total 2.7 g/dL 1.5-4. 5 Not Available [facility] ([facility]) [address] [place], [address], 08/24/2020 06:12:05 08/24/1908/24/2020 CMP, serum or plasm a A/G ratio 1.7 1.2-2. 2 Not Available [facility] ([facility]) [address] [place], [address], 08/24/2020 06:12:05 08/24/1908/24/2020 CMP, serum or plasm a bilirubin, total 0.7 mg/dL 0.0-1. 2 Not Available [facility] ([facility]) [address] [place], [address], 08/24/2020 06:12:05 08/24/19 21 08/24/2020 CMP, serum or plasm a alkaline phosphatase 59 IU/L 39-117 Not Available [facility]) [address] [place], [address], 08/24/2020 06:12:05 08/24/1908/24/2020 CMP, serum or plasm a AST (SGOT) 31 IU/L 0-40 Not Available [facility] ([facility]) [address] [place], [address], 08/24/2020 06:12:05 08/24/1908/24/2020 CMP, serum or plasm a ALT (SGPT) 29 IU/L 0-44 Not Available [facility] ([facility]) [address] [place], [address], 08/24/2020 06:12:05 04/22/20 21 08/24/2020 CBC WBC 9.9 x10e3 /uL 3.4-10 .8 Not Available [facility] ([facility]) [address] [place], [address], 08/24/2020 06:12:06 08/24/19 21 08/24/2020 CBC RBC 5.18 x10e6 /uL 4.14-5 .80 Not Available [facility] ([facility]) [address] [facility], [place], [address], 08/24/2020 06:12:06 08/24/19 21 08/24/2020 CBC hemoglobin 15.0 g/dL 13.0-1 7.7 Not Available [facility] ([facility]) [address] [facility], [place], [address], 08/24/2020 06:12:06 08/24/1908/24/2020 CBC hematocrit 44.6 % 37.5-5 1.0 Not Available [facility] ([facility]) [address] [place], [address], 08/24/2020 06:12:06 08/24/1908/24/2020 CBC MCV 86 fL 79-97 Not Available [facility] ([facility]) [address] [facility], [place], [address], 08/24/2020 06:12:06 08/24/1908/24/2020 CBC MCH 29.0 pg 26.6-3 3.0 Not Available [facility] ([facility]) [address] [place], [address], 08/24/2020 06:12:06 08/24/1908/24/2020 CBC MCHC 33.6 g/dL 31.5-3 5.7 Not Available [facility] ([facility]) [address] [place], [address], 08/24/2020 06:12:06 08/24/19 21 08/24/2020 CBC RDW 12.7 % 11.6-1 5.4 Not Available [facility] ([facility]) [address] [facility], [place], [address], 08/24/2020 06:12:06 08/24/19 21 08/24/2020 CBC platelets 339 x10e3 /uL 150-45 0 Not Available [facility] ([facility]) [address] [facility], [place], [address], 08/24/2020 06:12:06 08/24/19 21 08/24/2020 CBC NRBC [employer] Not Available [facility] ([facility]) [address] [place], [address], 08/24/2020 06:12:06 08/24/19 21 08/24/2020 lipid panel , serum cholesterol, total 171 mg/dL 100-19 9 Not Available [facility] ([facility]) [address] [place], [address], 08/24/2020 06:12:07 08/24/1908/24/2020 lipid panel , serum triglyceride s 217 mg/dL 0-149 above high normal Not Available [facility] ([facility]) [address] [place], [address], 08/24/2020 06:12:07 08/24/19 21 08/24/2020 lipid panel , serum HDL cholesterol 52 mg/dL >39 Not Available [facility] ([facility]) [address] [place], [address], 08/24/2020 06:12:07 08/24/19 21 08/24/2020 lipid panel , serum VLDL cholesterol gilmar 36 mg/dL 5-40 Not Available [facility] ([facility]) [address] [place], [address], 08/24/2020 06:12:07 08/24/19 21 08/24/2020 lipid panel , serum LDL chol calc ([facility]) 83 mg/dL 0-99 Not Available [facility] ([facility]) [address] [facility], [place], [address], 08/24/2020 06:12:07 08/24/19 21 08/24/2020 lipid panel , serum comment: [employer]ICAL [employer]SING TE[employer]ER Not Available [facility] ([facility]) [address] [facility], [place], [address], 08/24/2020 06:12:07 08/24/19 21 08/24/2020 lipid panel , serum LDL/HDL ratio 1.6 ratio 0.0-3. 6 LDL/H DL Ratio Men Women 1/2 Avg.R isk 1.0 1.5 Avg.R isk 3.6 3.2 2X Avg.R isk 6.2 5.0 3X Avg.R isk 8.0 6.1 Not Available [facility] ([facility]) [address] [facility], [place], [address], 08/24/2020 06:12:07 06/30/19 25 06/30/2024 Influ daniel virus A and B and SARS- CoV-2 (COVI D-19) and SARS- relat ed CoV RNA panel - Respi rator y syste m speci men by WILLI with probe detec tion sars-cov-2 (covid-19) RNA [presence] in specimen by WILLI with probe detection Negati ve normal Not Available Not Available 09:29:33 06/30/19 25 06/30/2024 Influ daniel virus A and B and SARS- CoV-2 (COVI D-19) and SARS- relat ed CoV RNA panel - Respi rator y syste m speci men by WILLI with probe detec tion influenza virus A RNA [presence] in respiratory system specimen by WILLI with probe detection Negati ve normal Not Available Not Available 09:29:33 06/30/19 25 06/30/2024 Influ daniel virus A and B and SARS- CoV-2 (COVI D-19) and SARS- relat ed CoV RNA panel - Respi rator y syste m speci men by WILLI with probe detec tion influenza virus B RNA [presence] in respiratory system specimen by WILLI with probe detection Negati ve normal Not Available Not Available 09:29:33 03/13/20 17 03/13/2017 CT, chest , w/ contr ast No observ ation record ed. [email or web address] [facility] (Imaging) [address], [place], [address], 03/16/2017 18:57:03 04/03/20 17 03/13/2017 CT, chest + abdom en + pelvi s, w/o contr ast No observ ation record ed. [email or web address] Not Available 2016 10:29:45 04/22/20 17 04/07/2017 sleep study , diagn ostic * No observ ation record ed. [email or web address] Not Available 2016 06:06:36 06/29/19 18 trans -thor acic echoc ardio gram (TTE) (PROC ) No observ ation record ed. [email or web address] [facility] [address], [place], [address], 06/30/2017 14:06:16 07/15/19 18 07/08/2017 polys omnog brea * No observ ation record ed. [facility] [address], [place], [address], 07/16/2017 10:38:40 04/02/20 18 04/01/2018 CT, chest , w/ contr ast No observ ation record ed. [email or web address] [facility] [address], [place], [address], 04/14/2018 14:43:12 08/10/19 21 08/09/2020 cardi ac stres s test No observ ation record ed. [email or web address] [facility] [address], [place], [address], 08/16/2020 17:52:25 08/10/19 21 08/09/2020 trans -thor acic echoc ardio gram (TTE) (PROC ) No observ ation record ed. [email or web address] [facility] [address], [place], [address], 08/16/2020 17:52:04 08/25/19 21 2020 XR, chest , 2 view No observ ation record ed. [facility] ([facility] Sched[facility]) [address] [place], [address], 08/29/2020 15:45:17 08/25/19 21 2020 XR, ribs, unila teral No observ ation record ed. [facility] ([facility] Sched[facility]) [address] [place], [address], 08/29/2020 15:45:18 04/10/20 21 04/10/2021 CT, angio gram, chest , w/ contr ast No observ ation record ed. [place] [address], [place], [address], 04/24/2021 18:33:35 06/12/19 23 06/12/2022 CT, abdom en + pelvi s, w/ contr ast No observ ation record ed. [address] Add On [facility] Orders [address] [place], [address], 06/26/2022 11:00:38 09/11/19 23 09/10/2022 trans -thor acic echoc ardio gram (TTE) (PROC ) No observ ation record ed. [facility] [address], [place], [address], 09/10/2022 18:01:24 09/11/19 23 09/10/2022 NM, myoca rdial perfu jarrod scan No observ ation record ed. [facility] [address], [place], [address], 09/15/2022 12:17:08 02/28/20 23 02/26/2023 MRI, knee, w/o contr ast No observ ation record ed. [address] [place], [address], 03/11/2023 01:34:26 01/15/20 24 01/14/2024 trans -thor acic echoc ardio gram (TTE) (PROC ) No observ ation record ed. [address] [facility] [address], [place], [address], 01/17/2024 05:49:51 02/03/20 24 02/03/2024 XR, chest No observ ation record ed. [address] [place], [address], 02/04/2024 23:18:02 03/24/20 24 03/24/2024 XR, chest No observ ation record ed. [address] [place], [address], 03/26/2024 00:49:46 06/30/19 25 06/30/2024 imagi ng/di agnos tic resul t No observ ation record ed. [facility] [address] [place], [address], 06/30/2024 08:46:44 06/30/19 25 06/30/2024 imagi ng/di agnos tic resul t No observ ation record ed. [facility] [address] [place], [address], 06/30/2024 08:46:57 Result Notes None recorded. Problems Name Problem SNOMED Code Status Onset Date Resolution Date Notes Provider Name and Address Organization Details Recorded Time Anxiety disorder 586747549 Active Not Available [facility] 10:47:58 Headache 46926343 Active 2016 Not Available [facility] 3 10:47:58 Screening for malignant neoplasm of prostate Active 2016 Not Available [facility] 3 10:47:58 Bronchitis 73976886 Active 2020 Not Available [facility] 3 10:47:58 Tenderness 859636982 Active 2020 left rib Not Available [facility] 3 10:47:58 History of diverticul itis 3914423889886 00 Active 2021 Not Available [facility] 3 10:47:58 Acute bronchitis 62197293 Active Not Available [facility] 3 10:47:58 Aortic stenosis, non-rheuma tic 022117411 Active Not Available [facility] 3 10:47:58 Essential hypertensi on 33824480 Active Not Available [facility] 3 10:47:58 Overweight 624363311 Active Not Available [facility] 3 10:47:58 Mixed hyperlipid emia 813578248 Active Not Available [facility] 3 10:47:58 Short-slee per 350886484 Active 2016 Not Available [facility] 3 10:47:58 History of aortic valve replacemen t 6654507768827 Active 2016 Not Available [facility] 3 10:47:58 Intermitte nt palpitatio ns 528969704 Active 2016 Not Available [facility] 3 10:47:58 Problem Notes None recorded. Procedures Surgical History Date Name Laterality Status Provider Name and Address Organization Details Recorded Time Hernia Repair completed Henrik Espinoza MA [facility] 07/03/2014 16:48:29 Heart Surgery completed Henrik Espinoza MA [facility] 07/03/2014 16:48:29 Imaging Results Imaging Date Name Status LastModified by Organization Details LastModified Time 03/13/2017 CT, chest, w/ contrast completed [email or web address] [facility] ([facility]) [address] [place], [address], 03/16/2017 18:57:03 03/13/2017 CT, chest + abdomen + pelvis, w/o contrast [place] [address] Information not available 04/09/2017 10:29:45 04/07/2017 sleep study, diagnostic* completed [place] [address] Information not available 04/23/2017 06:06:36 06/29/2017 trans-thoracic echocardiogram (TTE) (PROC) completed [email or web address] [facility] [address], [place], [address], 06/30/2017 14:06:16 07/08/2017 polysomnography* completed [email or web address] [facility] [address], [place], [address], 07/16/2017 10:38:40 04/01/2018 CT, chest, w/ contrast completed [address] [facility] [address], [place], [address], 04/14/2018 14:43:12 08/09/2020 cardiac stress test completed [address] [facility] [address], [place], [address], 08/16/2020 17:52:25 08/09/2020 trans-thoracic echocardiogram (TTE) (PROC) completed [address] [facility] [address], [place], [address], 08/16/2020 17:52:04 2020 XR, chest, 2 view completed [facility] ([facility] Sched[facility]) [address] [place], [address], 08/29/2020 15:45:17 2020 XR, ribs, unilateral completed [facility] ([facility] Sched[facility]) [address] [place], [address], 08/29/2020 15:45:18 04/10/2021 CT, angiogram, chest, w/ contrast completed [address] [place], [address], 04/24/2021 18:33:35 06/12/2022 CT, abdomen + pelvis, w/ contrast completed [address] [facility] [address] [place], [address], 06/26/2022 11:00:38 09/10/2022 trans-thoracic echocardiogram (TTE) (PROC) completed [facility] [address], [place], [address], 09/10/2022 18:01:24 09/10/2022 NM, myocardial perfusion scan completed [facility] [address], [place], [address], 09/15/2022 12:17:08 02/26/2023 MRI, knee, w/o contrast completed [address] [place], [address], 03/11/2023 01:34:26 01/14/2024 trans-thoracic echocardiogram (TTE) (PROC) completed [address] [facility] [address], [place], [address], 01/17/2024 05:49:51 02/03/2024 XR, chest completed [address] [place], [address], 02/04/2024 23:18:02 03/24/2024 XR, chest completed [address] [place], [address], 03/26/2024 00:49:46 06/30/2024 imaging/diagnostic result active [facility] [address] [place], [address], 06/30/2024 08:46:44 06/30/2024 imaging/diagnostic result active [facility] [address] [place], [address], 06/30/2024 08:46:57 Procedure Notes None recorded. Medical Equipment None Reported. Allergies No known drug allergies Medications Name Sig Start Date Stop Date Status Note LastModified by Organization Details LastModified Time losartan 50 mg tablet TAKE 1 TABLET BY MOUTH ONCE DAILY active Not Available Not Available No t Available quetiapine 25 mg tablet TAKE 1 TABLET BY MOUTH 4 TIMES DAILY NEEDED 08/23 completed Not Available Not Available Not Available fluoxetine 40 mg capsule TAKE 1 CAPSULE BY MOUTH ONCE DAILY active Not Available Not Available No t Available atorvastati n 40 mg tablet Take 1 tablet by mouth once daily 2021 active Not Available Not Available Not Avai lable neomycin-po lymyxin-hyd rocort 3.5 mg/mL-10,00 0 unit/mL-1 % ear solution INSTILL 4 DROPS INTO LEFT EAR EVERY 8 HOURS FOR 7 DAYS 08/23 completed Not Available Not Available Not Available carvedilol 25 mg tablet TAKE 1 TABLET BY MOUTH TWICE DAILY WITH MEALS active Not Available Not Available No t Available Colace 100 mg capsule Take 1 capsule every day by oral route. 2021 active Not Available Not Available Not Avai lable carvedilol 6.25 mg tablet TAKE 1 TABLET BY MOUTH TWICE DAILY active Not Available Not Available No t Available venlafaxine ER 75 mg capsule,ext ended release 24 hr TAKE 1 CAPSULE BY MOUTH ONCE DAILY FOR 2 WEEKS, AND THEN TAKE 1 CAPSULE EVERY OTHER DAY FOR 2 WEEKS, THEN STOP active Not Available Not Available No t Available atorvastati n 20 mg tablet TAKE 1 TABLET BY MOUTH ONCE DAILY active Not Available Not Available No t Available carvedilol 12.5 mg tablet TAKE 1 TABLET BY MOUTH TWICE DAILY active Not Available Not Available No t Available divalproex 250 mg tablet,irma yed release TAKE 1 TABLET BY MOUTH AT BEDTIME FOR 2 NIGHTS, THEN TAKE 2 TABLETS AT BEDTIME FOR 4 NIGHTS, THEN TAKE 3 TABLETS AT BEDTIME active Not Available Not Available No t Available trazodone 50 mg tablet Take 1 tablet every day by oral route at bedtime. 12/29 completed Not Available Not Available Not Available hydrocodone 5 mg-acetamin ophen 325 mg tablet TAKE 1 TO 2 TABLETS BY MOUTH EVERY 6 HOURS NEEDED FOR PAIN . DO NOT EXCEED 4 PER 24 HOURS active Not Available Not Available No t Available clonazepam 1 mg tablet TAKE 1 TABLET BY MOUTH UP TO 6 TIMES DAILY active Not Available Not Available No t Available venlafaxine ER 150 mg capsule,ext ended release 24 hr TAKE 1 CAPSULE BY MOUTH ONCE DAILY active Not Available Not Available No t Available hydroxyzine pamoate 50 mg capsule active Not Available Not Available N ot Available lamotrigine 25 mg tablet TAKE 1 TABLET BY MOUTH DAILY FOR 2 WEEKS, THEN INCREASE TO 2 TABLETS DAILY FOR 2 WEEKS, THEN INCREASE TO 4 TABLETS DAILY active Not Available Not Available No t Available alprazolam 0.5 mg tablet TAKE 1-2 TABS BY MOUTH UP TO 3 TIMES DAILY active Not Available Not Available No t Available ofloxacin 0.3 % ear drops INSTILL 5 DROPS INTO EACH EAR TWICE DAILY FOR 10 DAYS 08/23 completed Not Available Not Available Not Available ziprasidone 20 mg capsule TAKE 1 CAPSULE BY MOUTH TWICE DAILY active Not Available Not Available No t Available paroxetine 30 mg tablet TAKE ONE TABLET BY MOUTH ONCE DAILY AT BEDTIME active Not Available Not Available No t Available venlafaxine 37.5 mg tablet TAKE ONE TABLET BY MOUTH TWICE DAILY 2016 active Not Available Not Available Not Avai lable buspirone 10 mg tablet TAKE 1 TABLET BY MOUTH TWICE DAILY DIRECTED active Not Available Not Available No t Available lisinopril 10 mg tablet Take 1 tablet every day by oral route. 03/30 completed Not Available Not Available Not Available warfarin 5 mg tablet TAKE 1/2 TABLET ON THURSDAY AND THURSDAY. THEN TAKE 1 TABLET BY MOUTH ON THURSDAY, THURSDAY, THURSDAY , THURSDAY, AND THURSDAY active Not Available Not Available No t Available losartan 25 mg tablet TAKE 1 2 (ONE HALF) TABLET BY MOUTH ONCE DAILY active Not Available Not Available No t Available fluoxetine 10 mg capsule TAKE 1 CAPSULE BY MOUTH ONCE DAILY active Not Available Not Available No t Available chlordiazep oxide 10 mg capsule Take 1 capsule twice a day by oral route as needed. 12/29 completed Not Available Not Available Not Available furosemide 20 mg tablet TAKE 1 TABLET BY MOUTH ONCE DAILY active Not Available Not Available No t Available Levaquin 500 mg tablet Take 1 tablet every 24 hours by oral route for 10 days. 08/23 completed Not Available Not Available Not Available ziprasidone 40 mg capsule TAKE 1 CAPSULE BY MOUTH TWICE DAILY active Not Available Not Available No t Available lorazepam 1 mg tablet TAKE 1 TO 2 TABLETS BY MOUTH UP TO THREE TIMES DAILY NEEDED active Not Available Not Available No t Available warfarin 1 mg tablet TAKE 3 TABLETS BY MOUTH EVERY EVENING active Not Available Not Available No t Available propranolol 20 mg tablet TAKE 1 TABLET BY MOUTH THREE TIMES DAILY active Not Available Not Available No t Available fluoxetine 20 mg capsule TAKE 1 CAPSULE BY MOUTH AT BEDTIME active Not Available Not Available No t Available risperidone 1 mg tablet TAKE 1 TABLET BY MOUTH ONCE DAILY AT NIGHT AT BEDTIME active Not Available Not Available No t Available acetaminoph en 500 mg capsule Take 2 capsules every 6 hours by oral route as needed. 2021 active Not Available Not Available Not Avai lable naproxen 500 mg tablet TAKE 1 TABLET BY MOUTH TWICE DAILY WITH FOOD active Not Available Not Available No t Available amoxicillin 875 mg-potassiu m clavulanate 125 mg tablet TAKE 1 TABLET BY MOUTH BY MOUTH EVERY 8 HOURS FOR 5 DAYS active Not Available Not Available No t Available duloxetine 30 mg capsule,del ayed release TAKE 1 CAPSULE BY MOUTH ONCE DAILY active Not Available Not Available No t Available buspirone 08/23 completed Not Available Not Available Not Available fenofibric acid (choline) 135 mg capsule,del ayed release TAKE 1 CAPSULE BY MOUTH ONCE DAILY 08/23 completed Not Available Not Available Not Available naloxone 4 mg/actuatio n nasal spray CALL 911. ADMINISTE R A SINGLE SPRAY INTRANASA LLY INTO ONE NOSTRIL UPON SIGNS OF OPIOID OVERDOSE. MAY REPEAT AFTER 3 MINUTES IF NO RESPONSE. active Not Available Not Available No t Available Vitals Date Recorded Body height Body mass index (BMI) Body weight Heart rate Body temperature Oxygen saturation Oxygen saturation in Arterial blood by Pulse oximetry Systolic blood pressure Diastolic blood pressure Provider Name and Address Organization Details Last Updated DateTime 8 170.18 cm 35.1 kg/m2 308140. 69 g 80 /min 98 [degF] 98 % 98 % 118 mm[Hg] 84 mm[Hg] Nadya Perales MA [place] [facility] 8 17:26:25 Date Recorded Body height Body mass index (BMI) Body weight Body temperature Heart rate Oxygen saturation Oxygen saturation in Arterial blood by Pulse oximetry Systolic blood pressure Diastolic blood pressure Provider Name and Address Organization Details Last Updated DateTime 1 170.18 cm 34.8 kg/m2 493323. 51 g 98.1 [degF] 86 /min 97 % 97 % 128 mm[Hg] 84 mm[Hg] Nadya Perales MA [facility] 1 16:26:46 Date Recorded Body height Body mass index (BMI) Body weight Body temperature Heart rate Oxygen saturation Oxygen saturation in Arterial blood by Pulse oximetry Systolic blood pressure Diastolic blood pressure Provider Name and Address Organization Details Last Updated DateTime 2 170.18 cm 34.5 kg/m2 59704.3 2 g 98.1 [degF] 77 /min 97 % 97 % 140 mm[Hg] 90 mm[Hg] Nadya Perales MA [facility] 2 16:24:27 Date Recorded Body height Body mass index (BMI) Body weight Heart rate Oxygen saturation Oxygen saturation in Arterial blood by Pulse oximetry Body temperature Systolic blood pressure Diastolic blood pressure Provider Name and Address Organization Details Last Updated DateTime 7 170.18 cm 34.4 kg/m2 04453.6 g 72 /min 98 % 98 % 97.7 [degF] 118 mm[Hg] 80 mm[Hg] Roopa Kwok MA [facility] 7 16:29:42 Social History Question Answer Notes LastModified by Organizat ion Details LastModified Time Tobacco Smoking Status Never Smoker Henrik Espinoza MA [facility], [facility] 07/03/2014 16:48:29 What Is Your Level Of Alcohol Consumption? Moderate Information not available 11/06/2014 What Is Your Level Of Caffeine Consumption? Heavy Information not available 07/03/2014 How Much Tobacco Do You Chew? 1/day Information not available 07/03/2014 What Was The Date Of Your Most Recent Tobacco Screening? 05/06/2021 Information not available 05/06/2021 How Many Years Have You Smoked Tobacco? 2 Chew Tobacco Information not available 12/11/2016 Sex: Unknown Functional Status None recorded. Mental Status None recorded. Family History Relationship Description Onset Age of this Age Resolved Age Notes LastModified by Organization Details LastModified Time Father Hypertensive disorder barry Not available 06/04 16:28:43 Father Heart disease barry Not available 06/04 16:28:43 Medical History Condition Response Anxiety Disorder Y High Blood Pressure Y Heart Failure Y Past Encounters Encounter ID Performer Location Encounter Start Date Encounter Closed Date Diagnosis/Indication Diagnosis SNOMED-CT Code Diagnosis ICD10 Code Diagnosis Note [id number] Abi GarciaMarvin is [facility] ([facility] [address] [place] [phone] 05/29/2014 16:27:55 05/29/2014 17:32:06 Anxiety disorder [id number] Abi GarciaMarvin is [facility] ([facility]ult [facility]) [address] [place] [phone] 0 07/03/2014 16:37:47 07/03/2014 17:05:12 Anxiety disorder 611473709 Acute bronchitis 66133674 Aortic jez nosis, non-rheumatic 651914919 [id number] NOLAN Hernandez (Adult Med) [address] [place] [phone] 0 11/06/2014 15:57:25 11/06/2014 17:43:00 Anxiety disorder 173502877 Aortic jez nosis, non-rheumatic 524259897 Screening for malignant neoplasm of prostate 576829483 Essential hypertension 38328997 Overweight 509226315 Gav e pt pamphlet on calorie monitoring [id number] MD [facility] (Adult Med) [address] [place] [phone] 0 06/18/2015 16:03:22 06/18/2015 17:15:06 Essential hypertension 63190958 I10 Anxiety disorder 06 F41.9 Paroxetine qod x3 days, then stop. Venlafaxin e omnde daily for a week the BID [id number] [facility] [address] [place] [phone] 0 08/16/2015 16:08:04 08/16/2015 17:09:25 Anxiety disorder 533057504 F41.9 Paroxetine qod x3 days, then stop. Venlafaxin e omnde daily for a week the BID Aortic jez nosis, non-rheumatic 083648917 I35.0 Essential hypertension 77898587 I10 [id number] Kenneth Cunningham (Adult Med) [address] [place] [phone] 0 12/17/2015 15:53:20 12/17/2015 17:53:54 Essential hypertension 64060331 I10 Anxiety disorder 1160132 06 F41.9 Paroxetine qod x3 days, then stop. Venlafaxin e omnde daily for a week the BID Aortic jez nosis, non-rheumatic 958895883 I35.0 Screening for malignant neoplasm of prostate 988352519 Z12.5 [id number] Oscar Cunningham (Adult Med) [address] [place] [address] [phone] 0 02/18/2016 16:06:09 02/18/2016 17:50:49 Essential hypertension 49485560 I10 Mixed hyperlipidemia 267 245369 E78.2 Continue meds. [id number] MD [facility] (Adult Med) [address] [place] [address] [phone] 0 05/14/2016 16:04:35 05/14/2016 17:25:04 Short-sleeper 104973221 F51.8 Anxiety disorder 06 F41.9 Overweight 229164681 E66 .3 Gave pt pamphlet on calorie monitoring Essential hypertension 58878993 I10 [id number] MD [facility] (Adult Med) [address] [place] [address] [phone] 0 09/10/2016 16:07:18 09/10/2016 16:52:48 Essential hypertension 27849193 I10 Mixed hyperlipidemia 267 087891 E78.2 Continue meds. Anxiety disorder 06 F41.9 Aortic jez nosis, non-rheumatic 818526979 I35.0 [id number] MD [facility] (Adult Med) [address] [place] [address] [phone] 0 12/29/2016 16:16:18 12/29/2016 18:00:08 Anxiety disorder 953934552 F41.9 Pt to discuss with provider Mixed hyperlipidemia 267 051078 E78.2 Continue meds. History of aortic valve replacement 2121896683 100 Z95.4 Essential hypertension 76237934 I10 Intermitte nt palpitations 758762107 R00.2 Possible anxiety related. [id number] MD [facility] (Adult Med) [address] [place] [address] [phone] 0 03/30/2017 16:07:02 03/30/2017 17:19:22 Headache 58707771 R51 Discussed stopping atorvastat in for 5-7 days to observe relationsh ip to headache. Mixed hyperlipidemia 267 073632 E78.2 Continue meds. Aortic jez nosis, non-rheumatic 698032897 I35.0 Short-sleeper 890550284 F51.8 History of aortic valve replacement 8170020069 100 Z95.4 [id number] MD [facility] (Adult Med) [address] [place] [address] [phone] 0 08/24/2017 16:07:10 08/24/2017 17:56:12 Aortic stenosis, non-rheumatic 013616611 I35.0 Anxiety disorder 8404808 06 F41.9 Pt to discuss with provider Mixed hyperlipidemia 267 811486 E78.2 Continue meds. Essential hypertension 16786845 I10 Screening for malignant neoplasm of prostate 694013714 Z12.5 [id number] MD [facility] (Adult Med) [address] [place] [address] [id number] 0 10/11/2019 08:13:01 10/12/2019 16:43:48 Essential hypertension 13713871 I10 Headache 98015070 R51 Mixed hyperlipidemia 267 539474 E78.2 Continue meds. Screening for malignant neoplasm of prostate 655594417 Z12.5 [id number] MD [facility] (Adult Med) [address] [place] [address] [phone] 0 2020 16:06:12 08/24/2020 16:12:42 Essential hypertension 21506496 I10 Mixed hyperlipidemia 267 105454 E78.2 Continue meds. Aortic jez nosis, non-rheumatic 892878827 I35.0 History of aortic valve replacement 1687729905 100 Z95.4 Bronchitis 22929903 J40 Tenderness 122108439 R52 [id number] MD [facility] (Adult Med) [address] [place] [address] [place] [address] 05/06/2021 16:12:54 05/07/2021 11:46:42 Essential hypertension 53315726 I10 labs on return OV Mixed hyperlipidemia 267 909919 E78.2 History of diverticulitis 9049526976 03632 Z87.19 Health Concerns Section Related Observation LastModified by Organization Detai ls LastModified Time None Recorded Concern Status LastModified by Organization Details LastModified Time None Recorded Advance Directives Directive None Recorded Payers Encounter Date Sequence Insurance Name Policy Number Policy Londono Covered Member ID Londono Member ID Guarantor Name 03/30/2017 1 [id number] [id number] Petr Rivas Jr [id number] Petr Rivas 08/24/2017 1 [id number] [id number] Petr Rivas Jr [id number] Petr Rivas 10/11/2019 1 [employer] [id number] Petr Rivas Jr [id number] Petr Rivas 2020 1 [id number] [id number] Petr Rivas Jr [id number] Petr Rivas 05/06/2021 1 [id number] [id number] Petr Rivas Jr [id number] Pert Rivas Notes Date Note Type Note Provider Name and Address Organization Details Recorded Time 03/30/2017 text/html Recent change in medications from cardiology. Has had daily temporoarietal headaches since starting new meds. A little nasal congestion Shun Morin MD Attn: Accounting,[address] [facility], [place], [address], [facility] 03/30/2017 17:17:49 08/24/2017 text/html No new complaints Shun Morin MD Attn: Accounting,[address] [facility], [place], [address], [facility] 08/24/2017 17:53:33 10/11/2019 text/html Telephone visit due to Covid-19 precautions. He is requesting blood work. He has experienced frontal headaches for the past month. His blood pressure readings are good. Shun Morin MD Attn: Accounting,[address] [facility], [place], [address], [facility] 10/11/2019 17:30:47 2020 text/html Coughing up phle gm in am. Has area of tenderness on left flank Shun Morin MD Attn: Accounting,[address] [facility], [place], [address], [facility] 2020 17:35:18 05/06/2021 text/html BP follow up. No mew complaints.. Seen in ED almost one month ago. Diagnosed with sigmoid diverticulitis Shun Morin MD Attn: Accounting,[address] [facility], [place], [address], [facility] 05/06/2021 16:49:40
--- OUTSIDE RECORDS SUMMARY | 2024-07-03 19:14 | XMS_ITS | Referral Summary ---
Author Organization [facility] Address [address] [place] [address] Care Team Providers Care Shoemaking Cutter Name Role Phone Shun Simpson MD Primary Care Provider Source Comments [facility],non-owned Affiliates and Associated Physician Practices is amultiple site organization consisting of ambulatory clinics and hospital sitesin [place], [place], [place] and [place]. This disclosure is being madepursuant to the Care Everywhere program and may not contain all information available regarding this patient. Last updated 18.[facility] Allergies No known active allergies Medications * [...] 02/19/2019 12:13 PM CDT Plan of Treatment Not on file Care Teams Shoemaking Cutter Relationship Specialty [place] [address] [place] [phone] PCP - General Gastroenterology 01/10/19
--- NOTE | 2024-07-03 19:16 | ECG_ITS ---
Test Date: 2024-07-03 19:21:14 Measurements Intervals [place] Rate: 71 P: 47 AR: 124 QRS: 6 QRSD: 94 T: 29 QT: 411 QTc: 447 Interpretive Statements SINUS RHYTHM MODERATE T-WAVE ABNORMALITY, CONSIDER ANTERIOR ISCHEMIA [-0.1+ mV T-WAVE IN V3/V4] No previous ECG available for comparison Electronically Signed On 07-05-2024 15:34:35 MINER HELPER by Aimee Ledesma M.D.
[2024-07-03 19:32] LABS: Basophils Percent Auto 0.3 % (0.2-1.2); Eosinophils Absolute Auto 0.3 K/mm3 (0-0.3); Eosinophils Percent Auto 2.5 % (0-4.4); Hematocrit 33.8 % (42.0-52.0); Hemoglobin 11.1 g/dL (14.0-18.0); Immature Granulocyte Absolute 0.04 K/mm3 (0.00-0.031); Immature Granulocyte Percent A 0.4 % (0-0.5); Lymphocytes Absolute Auto 1.86 K/mm3 (0.9-3.2); Lymphocytes Percent Auto 17.8 % (18.3-44.2); Mean Corpuscular HGB Conc 32.8 g/dl (32-36); Mean Corpuscular Hemoglobin 26.6 pg (26-34); Mean Corpuscular Volume 80.9 fl (80-100); Mean Platelet Volume 8.5 fl (7.4-10.4); Monocytes Absolute Auto 0.8 K/mm3 (0.1-0.6); Monocytes Percent Auto 7.2 % (2.6-8.5); Neutrophils Absolute Auto 7.5 K/mm3 (1.3-6.7); Neutrophils Percent Auto 71.8 % (45.5-73.1); Platelet Count Result 470 k/mm3 (150-375); Red Blood Count 4.18 M/mm3 (4.6-6.20); Red Cell Distribution Width 15.2 % (11.5-14.5); White Blood Count 10.5 K/mm3 (4.5-10.0)
[2024-07-03 19:45] LABS: Prothrombin Time 32.1 Seconds (11.1-14.7)
[2024-07-03 19:46] LABS: Alanine Aminotransferase 33 U/L (6-50); Albumin Level 3.7 g/dL (3.5-5.1); Alkaline Phosphatase 67 U/L (38-126); Anion Gap 7 mmol/L (4-12); Aspartate Amino Transferase 37 U/L (17-59); Bilirubin,Total 0.4 mg/dL (0.2-1.3); Blood Urea Nitrogen 9 mg/dL (9-20); Calcium 9.5 mg/dL (8.4-10.2); Carbon Dioxide 30 mmol/L (22-30); Chloride 105 mmol/L (98-107); Estimated CRCL calculation 132 ml/min; Estimated Glomerular Filt Rate > 60; Glucose 112 mg/dL (65-110); Lipase 63 U/L (23-300); Partial Thromboplastin Time 65.7 Seconds (22.3-36.8); Potassium 4.1 mmol/L (3.4-5.0); Sodium 142 mmol/L (137-145)
[2024-07-03 19:57] LABS: Troponin I < 0.012 ng/mL (0.000-0.034)
[2024-07-03] MEDS: IPRATROPIUM 0.5 MG/ALBUTEROL SULFATE 2.5 MG AMPUL.NEB 3 ML INHALATION (20:01)
[2024-07-03 20:08] LABS: Influenza A QL RT-PCR Negative (Negative); Influenza B QL RT-PCR Negative (Negative); RSV RNA, RT-PCR Negative (Negative); SARS-CoV-2 RNA PCR Negative (Negative)
[2024-07-03] MEDS: ONDANSETRON INJ 4 MG/2 ML VIAL IV PUSH (20:08)
--- OUTSIDE RECORDS SUMMARY | 2024-07-03 20:08 | XMS_ITS | Clinical Summary ---
Author Organization [facility] [employer] [facility] Address [address] [place] [address] Care Team Providers Care Debone Processing Supervisor Name Role Phone Shun Simpson MD Primary Care Provider [phone] Source Comments [facility] [employer],non-owned Affiliates and Associated Physician Practices is amultiple site organization consisting of ambulatory clinics and hospital sitesin [place], [place], [place] and [place]. This disclosure is being madepursuant to the Care Everywhere program and may not contain all information available regarding this patient. Last updated 18.[facility] [employer] Allergies No known active allergies Medications * [...] age to complete this topic Care Teams Debone Processing Supervisor Relationship Specialty Start Date End Date Shun Simpson MD [address] [place] [phone] PCP - General Gastroenterology 01/10/19
--- OUTSIDE RECORDS SUMMARY | 2024-07-03 20:09 | XMS_ITS | CONTINUITY OF CARE DOCUMENT ---
Author Name elinor aldrich Address Unknown Organization [facility] Address [address] [place] [address] Phone [phone] Care Team Providers Care Burglar Alarm Assembler Name Role Phone Ade HUSAIN, Porfirio Unavailable MD DE SOUZA JOSHUA Unavailable [phone] NEELAM MORIN MD Unavailable PROBLEMS Condition Status [...] Booker MD Chest pain active Ingris Ventimiglia [employer] Cardiology examination active Porfirio Booker MD ENCOUNTERS Date Type Provider Location Encounter Diag nosis - In-person encounter Office Visit Porfirio Booker MD [facility] - In-person encounter Office Visit Porfirio Booker MD [facility] - In-person encounter Office Visit Porfirio Booker MD [facility] Cardiology examination - In-person encounter Office Visit Lauren Lemons MD [facility] Chest pain - In-person encounter Office Visit Porfirio Booker MD [facility] - In-person encounter Office Visit Porfirio Booker MD [facility] Anxiety - In-person encounter Office Visit Porfirio Booker MD [facility] - In-person encounter Office Visit Porfirio Booker MD [facility] - In-person encounter Office Visit Porfirio Booker MD [facility] SLEEP APNEAFatigue - In-person encounter Office Visit Lauren Lemons MD [facility] - In-person encounter Office Visit Porfirio Booker MD [facility] Neck pain, left - In-person encounter Office Visit Porfirio Booker MD [facility] Aortic root dilatation - In-person encounter Office Visit Porfirio Booker MD [facility] - In-person encounter Office Visit Porfirio Booker MD [facility] - In-person encounter Office Visit Porfirio Booker MD [facility] - In-person encounter Office Visit Porfirio Booker MD [facility] CAD-mild nonobstructive - In-person encounter Office Visit Porfirio Booker MD [facility] HTN ESSENTIAL - In-person encounter Office Visit Porfirio Booker MD [facility] SHORTNESS OF BREATH-07/14 CATH SEVERE , 4+ AIAORTIC STENOSIS-07/14 AVRCAROTID ARTERY DISEASE-07/14 CAROTID DUP NEG - In-person encounter Office Visit Porfirio Booker MD [facility] SHORTNESS OF BREATH-07/14 CATH SEVERE , 4+ AIAORTIC STENOSIS-07/14 AVR VITAL SIGNS Date Observation Value Provider Body Mass Index (Ratio) 31.41 kg/m2 Dianna Booker MD blood pressure, diastolic 78 mm[Hg] Shane aracelis Osborn blood pressure, systolic 111 mm[Hg] Jada roberson Osborn blood pressure, cuff size regular Shane aracelis Osborn oxygen saturation, oximetry 98 % [facility] pulse rate 80 /min [facility] weight E&M 200.6 [lb_av] [facility] Gladwin Osborn height E&M 67 [in_i] [facility] Glad[facility] Osborn Body Mass Index (Ratio) 32.73 kg/m2 [...] Rizo oxygen saturation, oximetry 98 % [place] Rizo blood pressure, cuff size regular ruth ann [...] klein pulse rate 98 /min Ruth Ford [facility] weight E&M 212 [lb_av] Ruth lyle height E&M 67 [in_i] Ruth Liliana [facility] Body Mass Index (Ratio) 33.83 kg/m2 Dianna Booker MD blood pressure, cuff size large Ke rri Gruenenfelder blood pressure, diastolic 100 mm[Hg] Ke rri Gruenenfelder blood pressure, systolic 148 mm[Hg] Ted ri Stephennfshahanaer oxygen saturation, oximetry 98 % Ruth Grkayleennenfghislaine respiratory rate E&M 16 /min Ruht G lulenenfelder pulse rate 63 /min Ruth Grkayleennenfe lder weight E&M 216 [lb_av] Ruth Grfernandoe lder height E&M 67 [in_i] Ruth Grkayleennenfe er weight E&M 205 [lb_av] Merrick coyle Body Mass Index (Ratio) 34.14 kg/m2 Dianna Booker MD oxygen saturation, oximetry 95 % [facility] Tierney respiratory rate E&M 16 /min Tonsha [...] Body Mass Index (Ratio) 34.77 kg/m2 Joseph Lemons MD blood pressure, cuff size regular Ke [...] blood pressure, systolic 133 mm[Hg] Ane atris [facility] pulse rate 91 /min Aneatris [facility] oxygen saturation, oximetry 99 % Aneatris Raz respiratory rate E&M 16 /min Aneatri s [facility] weight E&M 215 [lb_av] Aneatris [facility] Body Mass Index (Ratio) 33.98 kg/m2 Michelle michele [facility] blood pressure, diastolic 92 mm[Hg] An ho Crandall blood pressure, systolic 150 mm[Hg] Ane atris [facility] pulse rate 64 /min Aneatris [facility] oxygen saturation, oximetry 98 % Aneatris [facility] respiratory rate E&M 18 /min Aneatri s [facility] weight E&M 217 [lb_av] Geniaatris Raz blood [...] MOUTH THREE TIMES DAILY NEEDED Ingris Rayoglamee [employer] losartan 50 mg tablet completed Take 1 [...] MD drug use no Ingris Ventimig america [facility] alcohol use, average drinks per day social Ingris Ventimiglia [facility] alcohol use yes Ingris Ventimig america [employer] smoking status Never smoker Ingris araujo [employer] social history E&M Marital Statu s: Single [...] Angina (inactive) Management Plan continue current therapy Porfiiro Booker MD HRA, CV Assess/Plan, Angina (inactive) [...] Payer name Policy type / Coverage type [employer] party ID Mindie [id number] ADVANCE DIRECTIVES Name Date DISCUSSED - NO DECISION MADE TREATMENT PLAN Date Name Performer [id number],C,m ild per last sleep study in 2016. CPAP not covered by his plan. Can plan f/u sleep eval Ingrisfernando Rayodoni [facility] [id number],C,w ith bioprosthetic AVR. No murmur noted on exam. Will do f/u echo for further evaluation Ingrisfernando Rayodoni [facility] [id number],C,n oted on last echo at 4.99. Will do f/u echo and get better BP control Ingrisfernando Rayodoni [facility] [id number],C,B P 161/103. Uncontrolled at visit today. Discussed [...] by mouth once daily Orders: E KG (CPT-00915) 9 9214 MOD 30-39min (CPT-44646) C omplete Echo (CPT-51683) S tress Exercise Cardiolite (CPT-94301) C OMPREHENSIVE METABOLIC PANEL, W/EGFR (96732) B TYPE NATRIURETIC PEPTIDE (BNP) (70029) C RP, high sensitivity (77267) L IPID PANEL (7600) L ipoprotein (a) (046022) C BC (INCLUDES DIFF/PLT) (6399) Ingris Avila [facility] [id number],C,E tiology unclear at this time. May be [...] tablet by mouth twice daily Ingris Avila [facility] [id number],S,H is last measurements are around 4.8 cm we will check an echo and a CTA in august Porfirio Booker MD [id number],S, H is updated medication list for this problem includes: Aspirin Low Dose 81 Mg Tablet,delayed Release (/ec) (Aspirin) ..... Take 1 tablet by mouth once a day Coreg 6.25 Mg Tablet (Carvedilol) ..... Take 1 tablet by mouth twice a day Porfirio Booker MD [id number],S, Porfirio Booker MD [id number],S, H is updated medication list for this [...] referred to see Dr. De Souza at [facility] for evaluation on treatment options T his [...] Can plan f/u sleep eval Ingris Ventimiglia [facility] Cardiology:with biop rosthetic AVR. No murmur noted on exam. Will do f/u echo for further evaluation Ingris Avila [facility] Cardiology:noted on last echo at 4.99. Will do f/u echo and get better BP control Ingris Avila [facility] Cardiology:BP 161/10 3. Uncontrolled at visit today. [...] by mouth once daily Orders: E KG (CPT-75244) 9 9214 MOD 30-39min (CPT-40547) C omplete Echo (CPT-93251) S tress Exercise Cardiolite (CPT-71440) C OMPREHENSIVE METABOLIC PANEL, W/EGFR (19770) B TYPE NATRIURETIC PEPTIDE (BNP) (53675) C RP, high sensitivity (69574) L IPID PANEL (7600) L ipoprotein (a) (833168) C BC (INCLUDES DIFF/PLT) (6399) Ingris Avila [facility] Cardiology:Etiology unclear at this time. May be [...] tablet by mouth twice daily Ingris Avila [facility] Cardiology:His last measurements are around 4.8 cm [...] twice a day Porfirio Booker MD Cardiology Porfirio Booker MD Cardiology: H is updated [...] is being monitored by annual CTs at [place] for this issue. 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 A dvised patient on weight loss [...] with 25% stenosis in the RCA. - [facility] (07/15/2012) Porfirio Booker MD : [...] with 25% stenosis in the RCA. - [facility] (07/15/2012) Porfirio Booker MD HOSPITAL FOLLOW UP: H is updated medication list for this problem includes: Lisinopril 5 Mg Tabs (Lisinopril) ..... One tab. daily BP today: 114/64 Prior BP: 127/85 (07/13/2012) C ardiac Cath: Severe aortic stenosis uncrossable with a wire with a 125 mm gradient by echo. 4+ aortic insufficiency. Minimal CAD with 25% stenosis in the RCA. - [facility] (07/15/2012) H CT: 35.1 (07/08/2012) [...] - GC (*) C arotid Duplex Bilateral (CPT-29004) Porfirio Booker MD follow up: H is updated medication list for this problem includes: Lisinopril 5 Mg Tabs (Lisinopril) ..... One tab. daily Orders: E KG (CPT-27356) C ardiac Cath - Left - GC (*) C arotid Duplex Bilateral (CPT-58633) Porfirio Booker MD Date Name Cardiac Rehab [...] completed EKG Porfirio Booker MD completed SNOMED-CT: 86995212 Physical Exam, Performed: Pulse Exam of Foot Porfirio Booker MD completed SNOMED-CT: 756315967 197933 Current Medications Documented Porfirio Booker MD completed EKG Lauren Lemons MD completed SNOMED-CT: 016849759 995182 Current Medications Documented Lauren Lemons MD completed SNOMED-CT: 53137459 Physical Exam, Performed: Pulse Exam of Foot Porfirio Booker MD completed SNOMED-CT: 020203572 592188 Current Medications Documented Porfirio Booker MD completed SNOMED-CT: 64911902 Physical Exam, Performed: Pulse Exam of Foot Porfirio Booker MD completed EKG Porfirio Booker MD completed SNOMED-CT: 962383019 713732 Current Medications Documented Porfirio Booker MD completed SNOMED-CT: 95520108 Physical Exam, Performed: Pulse Exam of Foot Porfirio Booker MD completed SNOMED-CT: 139601841 669190 Current Medications Documented Porfirio Booker MD completed SNOMED-CT: 617436674 440760 Current Medications Documented Porfirio Booker MD completed EKG Porfirio Booker MD completed EKG Porfirio Booker MD completed
--- OUTSIDE RECORDS SUMMARY | 2024-07-03 20:09 | XMS_ITS | Referral Summary ---
Author Organization [facility] [employer] Address [address] [place] [address] Care Team Providers Care Compensation Programs Manager Name Role Phone Shun Simpson MD Primary Care Provider [phone] Source Comments [facility] [employer],non-owned Affiliates and Associated Physician Practices is amultiple site organization consisting of ambulatory clinics and hospital sitesin [place], [place], [place] and [place]. This disclosure is being madepursuant to the Care Everywhere program and may not contain all information available regarding this patient. Last updated 18.[facility] [employer] Allergies No known active allergies Medications * [...] of Treatment Not on file Care Teams Compensation Programs Manager Relationship Specialty [place] [address] [place] [phone] PCP - General Gastroenterology 01/10/19
--- OUTSIDE RECORDS SUMMARY | 2024-07-03 20:09 | XMS_ITS | Patient Health Summary ---
Author Organization [facility] Address [address] [place] [address] Care Team Providers Care Artillery Officer Name Role Phone Shun Simpson MD Primary Care Provider Note from [facility],non-owned Affiliates and Associated Physician Practices is amultiple site organization consisting of ambulatory clinics and hospital sitesin [place], [place], [place] and [place]. This disclosure is being madepursuant to the Care Everywhere program and may not contain all information available regarding this patient. Last updated 18.[facility] Allergies No known active allergies Medications * [...] Other Rashaad Casper MD IMAGING Care Teams Artillery Officer Relationship Specialty Start Date End Date Shun Simpson MD [address] [place] [phone] PCP - General Gastroenterology 01/10/19
[2024-07-03 20:26] LABS: NT Pro B Type Natriuretic Pept 2290 pg/mL (19.9-100)
--- NOTE | 2024-07-03 21:48 | ED_ITS ---
HPI - General Adult General Chief complaint: Shortness of Breath/Dyspnea Stated complaint: SOB Time Seen by Provider: 07/03/24 19:47 History of Present Illness HPI narrative: Patient 53-year-old gentleman who presents emergency department with chief complaint of shortness of breath and cough for the last 2 days patient reports that he had prior history of a cardiac bypass in March with repair of a valve and had an aortic aneurysm at that time. The patient states that he has had cough reports that he was seen at [place] on Thursday diagnosed with upper respiratory infection. Related Data Home Medications ?Medication ?Instructions ?Recorded ?Confirmed ?Last Taken ?Type atorvastatin 20 mg tablet 20 mg PO DAILY 12/13/19 Unknown History buspirone 10 mg tablet 10 mg PO BID 12/13/19 Unknown History clonazepam 1 mg tablet 1 mg PO DAILY 12/13/19 Unknown History losartan 25 mg tablet 25 mg PO DAILY 12/13/19 Unknown History venlafaxine 150 mg tablet,extended 150 mg PO DAILY 12/13/19 Unknown History release 24 hr fluoxetine 10 mg capsule (Prozac) 10 mg PO DAILY 03/21/20 Unknown History Allergies Allergy/AdvReac Type Severity Reaction Status Date / Time No Known Allergies Allergy Verified 07/03/24 19:12 Review of Systems 2 Review of Systems: A 10 system review of systems was completed on the patient and is negative except for what is stated in the HPI. Nursing and ancillary documentation was reviewed. [facility] Past Medical History Medical History (Updated 07/03/24 @ 23:02 by Thomas Toledo MD) Anxiety HLD (hyperlipidemia) HTN (hypertension) Surgical History Surgical History (Updated 07/03/24 @ 22:33 by Bhargavi Schaefer APRN) History of aortic aneurysm repair Aortic valve replaced Social History Social History Smoking status: Never smoker Alcohol intake: current Alcohol use details: Occasionally Substance use: never Exam 2 Narrative: GENERAL: Well-appearing, well-nourished, and in no acute distress. HEAD: Normocephalic, atraumatic. EYES: PERRLA and EOMI. ENT: Nares clear, no rhinorrhea or epistaxis. Mucous membranes moist. NECK: Supple. CHEST: Clear to auscultation. No respiratory distress. HEART: Regular rate and rhythm. No murmur heard. Normal peripheral pulses. ABDOMEN: Soft, nontender, nondistended, normal active bowel sounds. EXTREMITIES: Normal range of motion. No edema. SKIN: Warm, dry, no rash. NEURO: No focal deficits. Alert and oriented x3. PSYCH: Normal mood and affect. Course Vital Signs Vital signs: Vital Signs Temperature 36.5 C 07/03/24 19:16 Pulse Rate 77 07/03/24 19:16 Respiratory Rate 27 H 07/03/24 19:16 Blood Pressure 178/109 H 07/03/24 19:16 Pulse Oximetry 95 07/03/24 19:16 Temperature 36.5 C 07/03/24 19:16 Pulse Rate 66 07/03/24 20:59 Respiratory Rate 15 07/03/24 20:59 Blood Pressure 156/88 H 07/03/24 20:59 Pulse Oximetry 93 07/03/24 21:17 Oxygen Delivery Nasal Cannula 07/03/24 21:17 Oxygen Flow Rate 2 07/03/24 21:17 Medical Decision Making [facility] Narrative Medical decision making narrative: The patient was saturating 88% on room air Differential diagnosis includes pneumonia, pneumonitis, acute hypoxic Respiratory failure, CHF laboratory studies were obtained showed white count of 10.5 INR is 3.0 electrolytes within normal limits troponin was negative BNP was 2290 patient was negative for COVID flu RSV Chest x-ray showed no focal infiltrate CTA chest showed no evidence of pulmonary embolism but did show evidence of pneumonitis Given the hypoxia the patient was started on 2 L nasal cannula. Blood cultures were obtained patient will be started on new choir pneumonia treatment and plan will be to admit the patient for further care. Vital Signs Vital Signs: Vital Signs Temperature 36.5 C 07/03/24 19:16 Pulse Rate 77 07/03/24 19:16 Respiratory Rate 27 H 07/03/24 19:16 Blood Pressure 178/109 H 07/03/24 19:16 Pulse Oximetry 95 07/03/24 19:16 Temperature 36.5 C 07/03/24 19:16 Pulse Rate 66 07/03/24 20:59 Respiratory Rate 15 07/03/24 20:59 Blood Pressure 156/88 H 07/03/24 20:59 Pulse Oximetry 93 07/03/24 21:17 Oxygen Delivery Nasal Cannula 07/03/24 21:17 Oxygen Flow Rate 2 07/03/24 21:17 Lab Data 07/03/24 19:26 07/03/24 19:26 Labs: Lab Results 07/03/24 Range/Units 19:26 WBC 10.5 H (4.5-10.0) K/mm3 RBC 4.18 L (4.6-6.20) M/mm3 Hgb 11.1 L D (14.0-18.0) g/dL Hct 33.8 L (42.0-52.0) % MCV 80.9 (80-100) fl MCH 26.6 (26-34) pg MCHC 32.8 (32-36) g/dl RDW 15.2 H (11.5-14.5) % Plt Count 470 H D (150-375) k/mm3 MPV 8.5 (7.4-10.4) fl Immature Gran % (Auto) 0.4 (0-0.5) % Neut % (Auto) 71.8 (45.5-73.1) % Lymph % (Auto) 17.8 L (18.3-44.2) % Bartholomew % (Auto) 7.2 (2.6-8.5) % Eos % (Auto) 2.5 (0-4.4) % Baso % (Auto) 0.3 (0.2-1.2) % Lymph # (Auto) 1.86 (0.9-3.2) K/mm3 Bartholomew # (Auto) 0.8 H (0.1-0.6) K/mm3 Eos # (Auto) 0.3 (0-0.3) K/mm3 Baso # (Auto) 0.0 (0.0-0.1) K/mm3 Abs Immat Gran (auto) 0.04 H (0.00-0.031) K/mm3 Absolute Neuts (auto) 7.5 H (1.3-6.7) K/mm3 Absolute Nucleated RBC 0.000 (0.0-0.012) K/mm3 Nucleated RBC % 0.0 (0.0-0.2) % PT 32.1 H (11.1-14.7) Seconds INR 3.0 APTT 65.7 H (22.3-36.8) Seconds Sodium 142 (137-145) mmol/L Potassium 4.1 (3.4-5.0) mmol/L Chloride 105 (98-107) mmol/L Carbon Dioxide 30 (22-30) mmol/L Anion Gap 7 (4-12) mmol/L BUN 9 (9-20) mg/dL Creatinine 0.60 L (0.7-1.3) mg/dL Estim Creat Clear Calc 132 ml/min Estimated GFR > 60 (59 - ) Glucose 112 H (65-110) mg/dL Calcium 9.5 (8.4-10.2) mg/dL Total Bilirubin 0.4 (0.2-1.3) mg/dL AST 37 (17-59) U/L ALT 33 (6-50) U/L Alkaline Phosphatase 67 (38-126) U/L Troponin I < 0.012 (0.000-0.034) ng/mL NT-Pro-B Natriuret Pep 2290 H (19.9-100) pg/mL Total Protein 7.0 (6.3-8.2) g/dL Albumin 3.7 (3.5-5.1) g/dL Lipase 63 (23-300) U/L Influenza A (RT-PCR) Negative (Negative) Influenza B (RT-PCR) Negative (Negative) RSV (RT-PCR) Negative (Negative) SARS-CoV-2 RNA (RT-PCR) Negative (Negative) Discharge Plan Discharge Clinical Impression: Acute hypoxemic respiratory failure, Pneumonitis Patient Disposition: Still a Patient Condition: Stable
--- NOTE | 2024-07-03 22:07 | P.HP_ITS ---
H&P: [facility] History of Present Illness Date/Time: 07/03/24 22:07 Chief Complaint: Shortness of Breath Narrative: 53 y/o M presents here with shortness of breath with PMH of hyperlipidemia, hypertension, aortic valve replacement, and s/p aortic aneurysm repair. The patient presents here from home for further evaluation of shortness of breath. He reports onset approximately 3 days ago. Worsens with exertion and no alleviating factors. Is accompanied by a productive cough, fever, chills, body aches, wheezing, chest tightness, nausea, vomiting, and diarrhea. Denies chest pain. Originally seen at [place] on Thursday, 07/01, for same symptoms and was diagnosed with a viral infection. Of note, the patient had a recent aortic valve replacement and an aortic aneurysm repair and 03/08/24 at [facility]. He reports that his mother, whom he just moved into to help, has also had cold like symptoms. He also noted some weight gain despite a poor appetite, denies lower extremity swelling. Initial VS at presentation: 97.7? F, HR 77, RR 27, 178/109, and 95% on RA. ED workup showed: WBC 10.5, hemoglobin 11.1, INR 3, creatinine 0.6 and GFR >60, glucose 112, initial troponin negative, and BNP 2290. Viral PCR negative. CXR showed no acute cardiopulmonary disease. Chest CTA showed highly suggestive of pneumonitis, bilateral pleural effusions with adjacent atelectasis versus pneumonia, small hypodensity in the liver, and mediastinal lymphadenopathy. Initial EKG showed sinus rhythm and moderate T-wave abnormality, awaiting formal read. Review of Systems Review of Systems: All systems reviewed & are unremarkable except as noted in HPI and below [facility] Past Medical History Medical History (Updated 07/03/24 @ 22:19 by Bhargavi Schaefer APRN) Anxiety HLD (hyperlipidemia) HTN (hypertension) Surgical History Surgical History (Updated 07/03/24 @ 22:33 by Bhargavi Schaefer APRN) History of aortic aneurysm repair Aortic valve replaced Social History Social History Smoking status: Never smoker Alcohol intake: current Alcohol use details: Occasionally Substance use: never Meds Home Medications and Allergies Home Medications ?Medication ?Instructions ?Recorded ?Confirmed ?Type atorvastatin 20 mg tablet 20 mg PO DAILY 12/13/19 History buspirone 10 mg tablet 10 mg PO BID 12/13/19 History clonazepam 1 mg tablet 1 mg PO DAILY 12/13/19 History losartan 25 mg tablet 25 mg PO DAILY 12/13/19 History venlafaxine 150 mg tablet,extended 150 mg PO DAILY 12/13/19 History release 24 hr fluoxetine 10 mg capsule (Prozac) 10 mg PO DAILY 03/21/20 History amoxicillin 875 mg-potassium 1 tablet PO Q8H 5 days #15 tabs 04/10/21 Rx clavulanate 125 mg tablet (Augmentin) Allergies Allergy/AdvReac Type Severity Reaction Status Date / Time No Known Allergies Allergy Verified 07/03/24 19:12 Vital Signs Vital Signs - 24 hr 07/03/24 19:16 07/03/24 20:02 07/03/24 20:07 Temperature 97.7 F Pulse Rate 77 73 67 Respiratory Rate 27 H 16 20 Blood Pressure 178/109 H Pulse Oximetry 95 Oxygen Delivery Oxygen Flow Rate 07/03/24 20:57 07/03/24 20:59 07/03/24 21:17 Temperature Pulse Rate 66 Respiratory Rate 15 Blood Pressure 156/88 H Pulse Oximetry 91 90 93 Oxygen Delivery Room Air Nasal Cannula Oxygen Flow Rate 2 Exam Const: General: comfortable and no acute distress Other: , male, modestly ill-appearing HENMT: Face/Nose/Sinus: Normal nares present Mouth: Yes moist mucous membranes Other: Nasal cannula in place, tolerating well Eyes: General: appearance normal, both eyes and all related structures Sclera: sclerae normal Pupils: Equal, round and reactive pupils present EOM: EOMs intact bilaterally Resp: Other: Bibasilar crackles, no wheezing. Normal respiratory effort. Cardio: Rate: regular rate Rhythm: regular rhythm Other: No ectopy, murmur, rub. +click Skin: General skin exam: normal color and no rashes or lesions noted Wounds: no wounds Neuro: Speech: normal speech Motor exam (neuro): 5/5 motor strength present throughout Sensory Exam: normal sensation Other: A&O x4 Extrem: General: normal to inspection Psych: Mental Status: mental status grossly normal Affect: normal affect Other: Good insight and judgment, pleasant H&P: Results Labs Labs: Short CBC 07/03/24 Range/Units 19:26 WBC 10.5 H (4.5-10.0) K/mm3 Hgb 11.1 L D (14.0-18.0) g/dL Hct 33.8 L (42.0-52.0) % Plt Count 470 H D (150-375) k/mm3 BMP 07/03/24 19:26 Sodium 142 Potassium 4.1 Chloride 105 Carbon Dioxide 30 BUN 9 Creatinine 0.60 L Glucose 112 H Calcium 9.5 Cardiac Enzymes 07/03/24 Range/Units 19:26 Troponin I < 0.012 (0.000-0.034) ng/mL Liver Function 07/03/24 Range/Units 19:26 Total Bilirubin 0.4 (0.2-1.3) mg/dL AST 37 (17-59) U/L ALT 33 (6-50) U/L Alkaline Phosphatase 67 (38-126) U/L Albumin 3.7 (3.5-5.1) g/dL Assessment and Plan Assessment and plan (1) Pneumonia: Qualifiers: Laterality: bilateral Lung location: lower lobe of lung Pneumonia type: due to unspecified organism Qualified Code(s): J18.9 - Pneumonia, unspecified organism Code(s): J18.9 - Pneumonia, unspecified organism Status: Acute Assessment and Plan: - did not meet SIRS criteria. However, blood cultures were obtained during the patient's initial workup, follow. - CXR: No acute cardiopulmonary pathology. - started on CAP tx: ceftriaxone and azithromycin on 07/03 - check MRSA PCR - Viral PCR negative - sputum culture, if obtainable - supportive care DuoNebs sana Mucinex sana Tylenol p.r.n. Reginaldo Walkeres p.r.n. Lozenge p.r.n. - currently requiring supplemental O2 - 2L NC, desat to 88 % on RA per ED nurse. Continue supplemental oxygen to maintain O2 saturation than 92%, wean as tolerated. (2) Elevated brain natriuretic peptide (BNP) level: Code(s): R79.89 - Other specified abnormal findings of blood chemistry Status: Acute Assessment and Plan: - BNP 2290 - no echo on file, ordered - currently on Lasix 20 mg daily, continue same dose. does not appear volume overloaded on exam. - monitor I&Os and daily weights - trend renal function (3) HTN (hypertension): Qualifiers: Hypertension type: primary hypertension Qualified Code(s): I10 - Essential (primary) hypertension Code(s): I10 - Essential (primary) hypertension Status: Chronic Assessment and Plan: - chronic, currently 156/88 - continue home medications - monitor Plan Diet: Heart healthy GI Prophylaxis: Not currently indicated DVT Prophylaxis: Warfarin Lines: Peripheral Code Status: Full code Quality VTE Prophylaxis VTE prophylaxis: pharmacologic ordered Hospitalist MIPS Advance Care Plan I have confirmed that the patient's Advanced Care Plan is present, code status is documented, or surrogate decision maker is listed in patient medical record.: Yes Medication Reconciliation I have utilized all available resources to obtain, update and review the patients current medications (includes all prescriptions, OTC, herbals, cannabis, and nutritional supplements).: Yes
[2024-07-03 23:25] LABS: Troponin I < 0.012 ng/mL (0.000-0.034)
--- NOTE | 2024-07-03 23:38 | ADMGEN ---
This patient, Petr Rivas Jr., was admitted to Medical Room 257-01. Patient/family oriented to hospital policies and general routines including ID bracelet, bed and alarms, visiting hours, pain management, procedures, bathroom and other care routines, personal items, smoking policy, room service/diet, and visiting hours. Information on how to activate the Rapid Response Team has been discussed. Patient/Family are encouraged to report perceived risks to care and to ask questions if they do not understand what they are told or what they should do.
[2024-07-04] VITALS (19 sets, daily range): BP systolic 145–173; BP diastolic 75–99; PULSE 63–82; RESP 16–20; TEMP 36.7–37.4; O2SAT 94–100
[2024-07-04] MEDS: BENZOCAINE/MENTHOL (*BKC) 18 EA LOZENGE 1 LOZENGE PO (00:07)
[2024-07-04] MEDS: ACETAMINOPHEN 325 MG TABLET 650 MG PO ×5 (00:07→23:06)
[2024-07-04] MEDS: BENZONATATE 100 MG CAPSULE PO ×3 (00:07→20:26)
[2024-07-04] MEDS: AZITHROMYCIN 500 MG/NS 250 ML 500 MG/250 ML BAG 250 MG IVPB ×2 (00:08→23:02)
[2024-07-04] MEDS: hydrALAZINE HCL 20 MG/ML VIAL 10 MG IV PUSH (00:08)
[2024-07-04 00:13] LABS: MRSA (PCR) NOT DETECTED (NOT DETECTE)
[2024-07-04] MEDS: ALPRAZolam (*CRX) 0.5 MG TABLET PO ×3 (00:46→20:26)
[2024-07-04 01:41] LABS: Troponin I 0.013 ng/mL (0.000-0.034)
[2024-07-04] MEDS: IPRATROPIUM 0.5 MG/ALBUTEROL SULFATE 2.5 MG AMPUL.NEB 3 ML INHALATION ×4 (02:24→19:59)
[2024-07-04] MEDS: PROMETHAZINE HCL 25 MG/ML AMPUL IM (04:12)
[2024-07-04 05:16] LABS: Glucose Point of Care 129 mg/dl (65-105)
[2024-07-04] MEDS: MORPHINE SULFATE (*CRX) 4 MG/ML INJ IV PUSH (05:48)
[2024-07-04 05:56] LABS: Basophils Percent Auto 0.3 % (0.2-1.2); Eosinophils Absolute Auto 0.2 K/mm3 (0-0.3); Eosinophils Percent Auto 1.6 % (0-4.4); Hematocrit 33.7 % (42.0-52.0); Hemoglobin 10.9 g/dL (14.0-18.0); Immature Granulocyte Absolute 0.05 K/mm3 (0.00-0.031); Immature Granulocyte Percent A 0.4 % (0-0.5); Lymphocytes Absolute Auto 1.34 K/mm3 (0.9-3.2); Lymphocytes Percent Auto 11.9 % (18.3-44.2); Mean Corpuscular HGB Conc 32.3 g/dl (32-36); Mean Corpuscular Hemoglobin 26.7 pg (26-34); Mean Corpuscular Volume 82.4 fl (80-100); Mean Platelet Volume 8.6 fl (7.4-10.4); Monocytes Absolute Auto 0.9 K/mm3 (0.1-0.6); Monocytes Percent Auto 7.5 % (2.6-8.5); Neutrophils Absolute Auto 8.9 K/mm3 (1.3-6.7); Neutrophils Percent Auto 78.3 % (45.5-73.1); Platelet Count Result 512 k/mm3 (150-375); Red Blood Count 4.09 M/mm3 (4.6-6.20); Red Cell Distribution Width 15.6 % (11.5-14.5); White Blood Count 11.3 K/mm3 (4.5-10.0)
--- NOTE | 2024-07-04 06:00 | ECHO_ITS ---
Patient Info Name: Petr Rivas Age: 53 years : 1970 Gender: Male Ht: 67 in Wt: 200 lbs BSA: 2.10 m2 HR: 65 bpm BP: 152 / 77 mmHg Heart Rhythm: Sinus Rhythm Technical Quality: Fair Exam Date: 07/04/2024 8:54 AM Exam Location: Echo Lab Patient Status: Inpatient Admit Date: 07/04/2024 Staff Ordering Physician: Thomas Toledo MD A Class Lineman: Sophie Underwood RDCS Attending Provider: Daniella Kumar DO Referring Physician: Paris PENG; Exam Type: CA echo dop color flow w con Study Info Indications R06.02 - Shortness of breath Complete two-dimensional, color flow and Doppler transthoracic echocardiogram is performed with contrast to opacify the left ventricle and to improve the deliniation of the left ventricle endocardial borders. Contrast/Agitated Saline Contrast/Ag. Saline: Definity Amount: 2.00 ml Administered By: Sophie Underwood RDCS Existing IV Access: Yes IV Access Condition: patent with no signs of infiltration Summary 1. The left ventricle is normal in size and systolic function. The left ventricular ejection fraction is visually estimated to be 60-65%. There is no regional wall abnormalities. 2. There appears to be a prosthetic valve that is well-seated in the aortic position and likely a mechanical valve. The Doppler gradients across the prosthetic valve suggests a normal functioning prosthesis. Left Ventricle The left ventricle is normal in size and systolic function. The left ventricular ejection fraction is visually estimated to be 60-65%. There is no regional wall abnormalities. Right Ventricle The right ventricle is not well visualized. Left Atria The left atrium is mildly dilated. Right Atria The right atrium is dilated. Atrial Septum The atrial septum is normal. Aortic Valve There appears to be a prosthetic valve that is well-seated in the aortic position and likely a mechanical valve. The Doppler gradients across the prosthetic valve suggests a normal functioning prosthesis. Pulmonic Valve The pulmonic valve is not well visualized. There is no color Doppler evidence of pulmonic valve regurgitation. Mitral Valve The mitral valve is normal. There is trace mitral regurgitation. Tricuspid Valve The tricuspid valve is normal. There is trace tricuspid regurgitation peak. Pericardium/Pleural Pericardium is normal in appearance with no evidence for significant pericardial effusion. Inferior Vena Cava Normal inferior vena cava with >50% collapse upon inspiration consistent with normal right atrial pressure, 3 mmHg. Aorta The aortic root is not well visualized. Left Ventricular Outflow Tract Name Value Normal LVOT 2D LVOT Diameter 2.21 cm LVOT Doppler LVOT Peak Gradient 6 mmHg LVOT Mean Gradient 3 mmHg LVOT VTI 23.97 cm LVOT VTI/AV VTI Ratio 0.57 LVOT Stroke Volume 91.54 ml LVOT CO 6.87 l/min LVOT CI 3.27 L/min/m2 Pulmonic Valve Name Value Normal RVOT Doppler RVOT Peak Gradient 3 mmHg PV Doppler PV Peak Gradient 5 mmHg Mitral Valve Name Value Normal MV Doppler MV Decel Mobile 588.53 cm/s2 MV PHT 0 s MV Area (PHT) 4.67 cm2 4.00-5.00 MV Diastolic Function MV E Peak Velocity 95.58 cm/s MV A Peak Velocity 58.12 cm/s MV E/A 1.64 MV Decel Time 0 s MV Annular TDI MV E/e' (Septal) 11.03 <=8.00 MV E/e' (Lateral) 11.03 <=8.00 MV E/e' (Average) 11.03 Tricuspid Valve Name Value Normal TV Regurgitation Doppler TR Peak Velocity 268.01 cm/s TR Peak Gradient 29 mmHg Estimated PAP/RSVP RA Pressure 3 mmHg <=5 PA Systolic Pressure 32 mmHg <36 RV Systolic Pressure 32 mmHg <36 Aorta Name Value Normal Ascending Aorta Ao Root Diameter (MM) 3.24 cm Ao Root Diam Index (MM) 1.54 cm/m2 Aortic Valve Name Value Normal AV Doppler AV Peak Velocity 268.06 cm/s AV Peak Gradient 29 mmHg AV Mean Gradient 14 mmHg AV VTI 42.40 cm AV Area (Cont Eq VTI) 2.16 cm2 >=3.00 AV Area (Cont Eq Jaime) 1.78 cm2 AV Regurgitation 2D LVOT Area 3.82 cm2 Ventricles Name Value Normal LV Dimensions 2D/MM IVS Diastolic Thickness (2D) 1.11 cm 0.60-1.00 LVID Diastole (2D) 5.79 cm 4.20-5.80 LVIW Diastolic Thickness (2D) 0.97 cm 0.60-1.00 LVID Systole (2D) 3.68 cm 2.50-4.00 LVOT Diameter 2.21 cm LV Mass (2D Cubed) 245.05 g 88.00-224.00 LV Mass Index (2D Cubed) 0.01 g/cm2 0.00-0.01 Relative Wall Thickness (2D) 0.33 LV Fractional Shortening/Ejection Fraction 2D/MM LV Fractional Shortening (2D) 37 % 25-43 LV EF (2D Teicholz) 66 % 52-72 LV Diastolic Volume (4C MOD) 82.14 ml LV EF (4C MOD) 77 % LV Diastolic Volume (2C MOD) 69.65 ml LV EF (2C MOD) 72 % LV Diastolic Volume (BP MOD) 77.34 ml 62.00-150.00 LV Diastolic Volume Index (BP MOD) 0.04 l/m2 0.03-0.07 LV Systolic Volume (BP MOD) 20.76 ml 21.00-61.00 LV Systolic Volume Index (BP MOD) 0.01 l/m2 0.01-0.03 LV EF (BP MOD) 73 % 52-72 LV Diastolic Length (4C) 8.98 cm LV Systolic Length (4C) 7.22 cm LV Stroke Volume (4C MOD) 63.09 ml Atria Name Value Normal LA Dimensions LA Dimension (MM) 5.01 cm 3.00-4.10 LA Volume (4C A-L) 68.08 ml LA Volume (BP A-L) 79.92 ml RA Dimensions RA Area (4C) 22.73 cm2 <=18.00 Report Signatures
[2024-07-04 06:04] LABS: Anion Gap 10 mmol/L (4-12); Blood Urea Nitrogen 8 mg/dL (9-20); Calcium 9.1 mg/dL (8.4-10.2); Carbon Dioxide 28 mmol/L (22-30); Chloride 105 mmol/L (98-107); Estimated CRCL calculation 137 ml/min; Estimated Glomerular Filt Rate > 60; Glucose 112 mg/dL (65-110); Sodium 143 mmol/L (137-145)
--- NOTE | 2024-07-04 06:27 | PC.NURSE ---
Pt c/o terrible headache, since he got up to the floor. 2 rounds of Acetaminophen were administered. Pt stated that it continues to worsen, when asked to rate the pain, pt stated : [address] Kumar notified of pt's condition. New orders for one time dose of morphine and STAT head CT received. This RN administered Morphine and took pt down to CT. CT completed. On re-assessment, pt is rating his headache 7 at rest, 10 with movement. Cold washcloth provided, lights turned down in the room.
[2024-07-04] MEDS: LORazepam INJ (*CRX) 2 MG/ML VIAL 1 MG IV PUSH (06:55)
--- NOTE | 2024-07-04 07:18 | P.PNCROSS_ITS ---
Event Note Event Note Event Note: Nursing staff called because patient was reporting intractable headache. Rudolph merrill was reportedly diaphoretic and curled up in bed due to pain. Patient is reporting pain 12/10 in intensity. A stat CT of the head was ordered and on my review was negative for acute process but radiologic interpretation was pending. A given order for 1 time dose of morphine 4 mg IV. I evaluated the patient after got back from CT scan. The patient was reporting a pain of 12/10 in intensity did nursing staff and pain is throbbing in nature. Worse with cough. The patient reports that ever since he had his aortic aneurysm repair and mechanical valve placed in March he has been having intermittent headaches but this is at headache significantly worse. He has been having some nasal congestion and cough productive of intermittent yellow sputum. He reports that he is quite anxious and keeps asking staff if he is going to . He reports that his anxiety is worse than usual currently. Patient was neurologically intact on exam. He did have some pressure with palpation over the frontal sinuses. He is otherwise afebrile and nontoxic-appearing. Reassurance was her provided regarding his CT of the head. I will provide 1 dose of IV Ativan 1 mg. I would like to avoid any narcotic medications given the patient's persistent reports of nausea. Phenergan has been provided as needed. The patient had received IM Phenergan for his headache and nausea earlier in the evening but only had relief in symptoms of approximately 25 minutes. He had not had any relief in his symptoms with the IV Phenergan earlier. 30 minute spent in critical care activities. This case had a high probability of a clinically significant, sudden, or life threatening deterioration of this patient's condition which required my full and direct attention, intervention and personal management
[2024-07-04] MEDS: PERFLUTREN LIPID MICROSPHERES 1.5 ML VIAL DILUTED TO 10 ML TOTAL VOLUME IV PUSH (09:32)
[2024-07-04] MEDS: FLUoxetine HCL 10 MG CAPSULE 40 MG PO (09:53)
[2024-07-04] MEDS: guaiFENesin 12 HR 600 MG TABCR PO ×2 (09:54→20:26)
[2024-07-04] MEDS: carvediloL 25 MG TABLET PO ×2 (09:54→20:26)
[2024-07-04] MEDS: LOSARTAN POTASSIUM 25 MG TABLET PO (09:55)
[2024-07-04] MEDS: ATORVASTATIN 20 MG TABLET PO (09:55)
--- NOTE | 2024-07-04 11:57 | IVDEFINITY ---
Prior to administration of IV Definity the patient was educated on the risks and benefits of the imaging enhancing agent including potential adverse side effects. The patient verbalized understanding. Allergies were verified. No exclusion criteria were identified and at least one of the following inclusion criteria were met: 1) physician request, 2) patient technically difficult to image (per the [place] [employer]ocardi[employer] guidelines of two or more segments not discernable within the apical view), or 3) questionable left ventricular function. ?
--- NOTE | 2024-07-04 12:34 | PM.IMPN ---
Progress Note: A&P Assessment and Plan (1) Pneumonia: Qualifiers: Laterality: bilateral Lung location: lower lobe of lung Pneumonia type: due to unspecified organism Qualified Code(s): J18.9 - Pneumonia, unspecified organism Code(s): J18.9 - Pneumonia, unspecified organism Status: Acute Assessment and Plan: - did not meet SIRS criteria. However, blood cultures were obtained during the patient's initial workup, follow. - CXR: No acute cardiopulmonary pathology. - started on CAP tx: ceftriaxone and azithromycin on 07/03 - check MRSA PCR - Viral PCR negative - sputum culture, if obtainable - supportive care DuoNebs sana Mucinex sana Tylenol p.r.n. Tessalon Perles p.r.n. Lozenge p.r.n. - currently requiring supplemental O2 - 2L NC, desat to 88 % on RA per ED nurse. Continue supplemental oxygen to maintain O2 saturation than 92%, wean as tolerated. (2) Elevated brain natriuretic peptide (BNP) level: Code(s): R79.89 - Other specified abnormal findings of blood chemistry Status: Acute Assessment and Plan: - BNP 2290 - no echo on file, ordered - currently on Lasix 20 mg daily, continue same dose. does not appear volume overloaded on exam. - monitor I&Os and daily weights - trend renal function (3) HTN (hypertension): Qualifiers: Hypertension type: primary hypertension Qualified Code(s): I10 - Essential (primary) hypertension Code(s): I10 - Essential (primary) hypertension Status: Chronic Assessment and Plan: - chronic, currently 156/88 - continue home medications - monitor Plan patient with significant cardiac history with recent aortic valve replacement and an aortic aneurysm repair and 03/08/24 at [facility] patient is on warfarin, with INR goal of 2.5 to 3.5, patient with chronic CALLAWAY, his CALLAWAY worsen with the stress of being in hospital, to further evaluate head CT scan of head which was normal. patient was give morphine x1 which did help, patient stats feeling better now, his CALLAWAY improving and he is not as short of breath as when he came in. Diet: Heart healthy GI Prophylaxis: Not currently indicated DVT Prophylaxis: Warfarin Lines: Peripheral Code Status: Full code Subjective Date/time seen: 07/04/24 12:34 Interval history: H&P-Narrative 53 y/o M presents here with shortness of breath with PMH of hyperlipidemia, hypertension, aortic valve replacement, and s/p aortic aneurysm repair. The patient presents here from home for further evaluation of shortness of breath. He reports onset approximately 3 days ago. Worsens with exertion and no alleviating factors. Is accompanied by a productive cough, fever, chills, body aches, wheezing, chest tightness, nausea, vomiting, and diarrhea. Denies chest pain. Originally seen at [place] on Thursday, 07/01, for same symptoms and was diagnosed with a viral infection. Of note, the patient had a recent aortic valve replacement and an aortic aneurysm repair and 03/08/24 at [facility]. He reports that his mother, whom he just moved into to [facility], has also had cold like symptoms. He also noted some weight gain despite a poor appetite, denies lower extremity swelling. patient with significant cardiac history with recent aortic valve replacement and an aortic aneurysm repair and 03/08/24 at [facility] patient is on warfarin, with INR goal of 2.5 to 3.5, patient with chronic CALLAWAY, his CALLAWAY worsen with the stress of being in hospital, to further evaluate head CT scan of head which was normal. patient was give morphine x1 which did help, patient stats feeling better now, his CALLAWAY improving and he is not as short of breath as when he came in. Review of Systems Review of Systems: All systems reviewed & are unremarkable except as noted in HPI and below Exam Narrative: Patient is comfortable, NAD HEENT: eyes are clear and none icteric LUNGS:CTA HEART: RR S1S2 ABD: BS+, Soft and nontender Lower extremities: no edema SKIN: nonjaundiced Neuro: grossly intact. Objective Data Vital Signs Vital Signs: Vital Signs - 24 hr 07/03/24 19:16 07/03/24 20:02 07/03/24 20:07 Temperature 36.5 C Pulse Rate 77 73 67 Respiratory Rate 27 H 16 20 Blood Pressure 178/109 H Pulse Oximetry 95 Oxygen Delivery Oxygen Flow Rate 07/03/24 20:57 07/03/24 20:59 07/03/24 21:17 Temperature Pulse Rate 66 Respiratory Rate 15 Blood Pressure 156/88 H Pulse Oximetry 91 90 93 Oxygen Delivery Room Air Nasal Cannula Oxygen Flow Rate 2 07/03/24 23:05 07/03/24 23:10 07/03/24 23:37 Temperature 36.9 C 37.1 C Pulse Rate 70 70 Respiratory Rate 15 20 Blood Pressure 161/99 H 184/94 H Pulse Oximetry 93 98 Oxygen Delivery Oxygen Flow Rate 07/04/24 00:34 07/04/24 00:47 07/04/24 02:25 Temperature Pulse Rate 70 68 Respiratory Rate 20 18 Blood Pressure 153/99 H Pulse Oximetry 98 Oxygen Delivery Nasal Cannula Oxygen Flow Rate 2 07/04/24 02:25 07/04/24 02:29 07/04/24 05:56 Temperature 36.9 C Pulse Rate 71 65 Respiratory Rate 18 20 Blood Pressure 152/77 H Pulse Oximetry 94 95 Oxygen Delivery Nasal Cannula Oxygen Flow Rate 4 07/04/24 08:10 07/04/24 08:10 07/04/24 08:20 Temperature Pulse Rate 67 67 72 Respiratory Rate 20 20 20 Blood Pressure Pulse Oximetry 95 Oxygen Delivery Nasal Cannula Oxygen Flow Rate 3 07/04/24 09:54 07/04/24 09:55 Temperature Pulse Rate 76 Respiratory Rate 20 Blood Pressure Pulse Oximetry 95 Oxygen Delivery Nasal Cannula Oxygen Flow Rate 2 Intake/Output Intake/Output: Intake & Output 07/01/24 07/02/24 07/03/24 07/04/24 23:59 23:59 23:59 23:59 Intake Total 340 Balance 340 Meds/Results Medications: Active Medications Generic Name Dose Route Start Last Admin Trade Name Freq PRN Reason Stop Dose Admin Acetaminophen 650 mg 07/03/24 22:07 07/04/24 10:05 Acetaminophen 325 Mg Tablet PO 650 mg Q4H PRN Administration Mild Pain (1-3) or Fever Albuterol/Ipratropium 3 ml 07/04/24 02:00 07/04/24 08:10 Ipratropium 0.5 Mg/Albuterol Sulfate 2.5 Mg Ampul.Neb 3 Ml INHALATION 3 ml Q6HRT SANA Administration Alprazolam 0.5 mg 07/04/24 00:09 07/04/24 00:46 Alprazolam (*Crx) 0.5 Mg Tablet PO 0.5 mg TID PRN Administration anxiety Atorvastatin Calcium 20 mg 07/04/24 09:00 07/04/24 09:55 Atorvastatin 20 Mg Tablet PO 20 mg DAILY SANA Administration Benzocaine 1 lozenge 07/03/24 22:23 03/03/25 00:07 Benzocaine/Menthol (*Bkc) 18 Ea Lozenge PO 1 lozenge PRN PRN Administration Sore Throat Benzonatate 100 mg 07/03/24 22:23 07/04/24 00:07 Benzonatate 100 Mg Capsule PO 100 mg TID PRN Administration Cough Carvedilol 25 mg 07/04/24 09:00 07/04/24 09:54 Carvedilol 25 Mg Tablet PO 25 mg Q12HR SANA Administration Fluoxetine HCl 40 mg 07/04/24 09:00 07/04/24 09:53 Fluoxetine Hcl 10 Mg Capsule PO 40 mg QAM SANA Administration Fluoxetine HCl 20 mg 07/04/24 18:00 Fluoxetine Hcl 20 Mg Capsule PO QPM SANA Guaifenesin 600 mg 07/04/24 09:00 07/04/24 09:54 Guaifenesin 12 Hr 600 Mg Tabcr PO 600 mg Q12HR SANA Administration Ceftriaxone Sodium 1 gm in 50 mls @ 100 mls/hr 07/04/24 23:00 Rocephin 1 Gm/Ns 50 Ml IVPB Q24H SANA Azithromycin 500 mg in 250 mls @ 250 mls/hr 07/05/24 00:00 Zithromax IVPB Q24H SANA Losartan Potassium 25 mg 07/04/24 09:00 07/04/24 09:55 Losartan Potassium 25 Mg Tablet PO 25 mg DAILY SANA Administration Promethazine HCl 25 mg 07/04/24 04:04 07/04/24 04:12 Promethazine Hcl 25 Mg/Ml Ampul IM 25 mg Q6H PRN Administration Nausea And Vomiting Warfarin Sodium 2.5 mg 07/04/24 21:00 Warfarin (*Pbkc) 2.5 Mg Tablet PO HS [facility] Radiology Results: ITS Impressions Chest X-Ray 07/03/24 19:53 IMPRESSION: No acute cardiopulmonary pathology. Chest CTA 07/03/24 21:22 IMPRESSION: 1. Highly suggestive of pneumonitis. Clinical correlation and follow-up advised. 2. Bilateral pleural effusion with adjacent atelectasis versus pneumonia. 3. Small hypodensity in the liver. Ultrasound evaluation advised. 4. Mediastinal lymphadenopathy. Head CT 07/04/24 06:55 Impression: No significant abnormality seen. Labs Labs: Laboratory Results - last 24 hr 07/03/24 07/03/24 07/04/24 19:26 22:51 01:08 WBC 10.5 H RBC 4.18 L Hgb 11.1 L D Hct 33.8 L MCV 80.9 MCH 26.6 MCHC 32.8 RDW 15.2 H Plt Count 470 H D MPV 8.5 Immature Gran % (Auto) 0.4 Neut % (Auto) 71.8 Lymph % (Auto) 17.8 L [place] % (Auto) 7.2 Eos % (Auto) 2.5 Baso % (Auto) 0.3 Lymph # (Auto) 1.86 [place] # (Auto) 0.8 H Eos # (Auto) 0.3 Baso # (Auto) 0.0 Abs Immat Gran (auto) 0.04 H Absolute Neuts (auto) 7.5 H Absolute Nucleated RBC 0.000 Nucleated RBC % 0.0 PT 32.1 H INR 3.0 APTT 65.7 H Sodium 142 Potassium 4.1 Chloride 105 Carbon Dioxide 30 Anion Gap 7 BUN 9 Creatinine 0.60 L Estim Creat Clear Calc 132 Estimated GFR > 60 Glucose 112 H POC Capillary Glucose Calcium 9.5 Total Bilirubin 0.4 AST 37 ALT 33 Alkaline Phosphatase 67 Troponin I < 0.012 < 0.012 0.013 NT-Pro-B Natriuret Pep 2290 H Total Protein 7.0 Albumin 3.7 Lipase 63 Nasal MRSA (PCR) Not detected Influenza A (RT-PCR) Negative Influenza B (RT-PCR) Negative RSV (RT-PCR) Negative SARS-CoV-2 RNA (RT-PCR) Negative 07/04/24 07/04/24 05:14 05:27 WBC 11.3 H RBC 4.09 L Hgb 10.9 L Hct 33.7 L MCV 82.4 MCH 26.7 MCHC 32.3 RDW 15.6 H Plt Count 512 H MPV 8.6 Immature Gran % (Auto) 0.4 Neut % (Auto) 78.3 H Lymph % (Auto) 11.9 L [place] % (Auto) 7.5 Eos % (Auto) 1.6 Baso % (Auto) 0.3 Lymph # (Auto) 1.34 [place] # (Auto) 0.9 H Eos # (Auto) 0.2 Baso # (Auto) 0.0 Abs Immat Gran (auto) 0.05 H Absolute Neuts (auto) 8.9 H Absolute Nucleated RBC 0.000 Nucleated RBC % 0.0 PT INR APTT Sodium 143 Potassium 4.0 Chloride 105 Carbon Dioxide 28 Anion Gap 10 BUN 8 L Creatinine 0.59 L Estim Creat Clear Calc 137 Estimated GFR > 60 Glucose 112 H POC Capillary Glucose 129 H Calcium 9.1 Total Bilirubin AST ALT Alkaline Phosphatase Troponin I NT-Pro-B Natriuret Pep Total Protein Albumin Lipase Nasal MRSA (PCR) Influenza A (RT-PCR) Influenza B (RT-PCR) RSV (RT-PCR) SARS-CoV-2 RNA (RT-PCR) Quality VTE Prophylaxis VTE prophylaxis: pharmacologic ordered
[2024-07-04] MEDS: FLUoxetine HCL 20 MG CAPSULE PO (17:27)
[2024-07-04] MEDS: WARFARIN (*PBKC) 2.5 MG TABLET PO (20:26)
[2024-07-04] MEDS: traMADol HCL (*CRX) 50 MG TABLET PO (21:28)
[2024-07-05] VITALS (17 sets, daily range): BP systolic 107–189; BP diastolic 80–103; PULSE 67–80; RESP 16–22; TEMP 36.2–37; O2SAT 91–98
[2024-07-05] MEDS: IPRATROPIUM 0.5 MG/ALBUTEROL SULFATE 2.5 MG AMPUL.NEB 3 ML INHALATION ×4 (02:21→20:25)
[2024-07-05] MEDS: traMADol HCL (*CRX) 50 MG TABLET PO ×4 (05:15→21:24)
[2024-07-05] MEDS: BENZONATATE 100 MG CAPSULE PO ×2 (05:16→20:50)
[2024-07-05 05:20] LABS: Hemoglobin 11.3 g/dL (14.0-18.0); Mean Corpuscular HGB Conc 32.3 g/dl (32-36); Mean Corpuscular Hemoglobin 26.5 pg (26-34); Mean Corpuscular Volume 82.2 fl (80-100); Mean Platelet Volume 8.4 fl (7.4-10.4); Platelet Count Result 469 k/mm3 (150-375); Red Blood Count 4.26 M/mm3 (4.6-6.20); Red Cell Distribution Width 15.5 % (11.5-14.5); White Blood Count 8.8 K/mm3 (4.5-10.0)
[2024-07-05 05:31] LABS: Anion Gap 6 mmol/L (4-12); Blood Urea Nitrogen 10 mg/dL (9-20); Calcium 8.8 mg/dL (8.4-10.2); Carbon Dioxide 29 mmol/L (22-30); Chloride 105 mmol/L (98-107); Estimated CRCL calculation 127 ml/min; Estimated Glomerular Filt Rate > 60; Glucose 100 mg/dL (65-110); Potassium 4.1 mmol/L (3.4-5.0); Sodium 140 mmol/L (137-145)
[2024-07-05 05:33] LABS: Prothrombin Time 22.9 Seconds (11.1-14.7)
[2024-07-05] MEDS: LOSARTAN POTASSIUM 25 MG TABLET PO (08:15)
[2024-07-05] MEDS: guaiFENesin 12 HR 600 MG TABCR PO ×2 (08:15→20:50)
[2024-07-05] MEDS: ATORVASTATIN 20 MG TABLET PO (08:15)
[2024-07-05] MEDS: FLUoxetine HCL 10 MG CAPSULE 40 MG PO (08:15)
[2024-07-05] MEDS: carvediloL 25 MG TABLET PO ×2 (08:15→20:51)
[2024-07-05] MEDS: LIDOCAINE 5% PATCH 2 PATCH TRANSDERM (10:35)
[2024-07-05] MEDS: WARFARIN (*PBKC) 0.5 MG TABLET PO (12:18)
--- NOTE | 2024-07-05 14:06 | PM.IMPN ---
Progress Note: A&P Assessment and Plan (1) Pneumonia: Qualifiers: Pneumonia type: due to unspecified organism Laterality: bilateral Lung location: lower lobe of lung Qualified Code(s): J18.9 - Pneumonia, unspecified organism Code(s): J18.9 - Pneumonia, unspecified organism Status: Acute Assessment and Plan: - did not meet SIRS criteria. However, blood cultures were obtained during the patient's initial workup, follow. - CXR: No acute cardiopulmonary pathology. - started on CAP tx: ceftriaxone and azithromycin on 07/03 - check MRSA PCR - Viral PCR negative - sputum culture, if obtainable - supportive care DuoNebs sana Mucinex sana Tylenol p.r.n. Tessalon Perles p.r.n. Lozenge p.r.n. - currently requiring supplemental O2 - 2L NC, desat to 88 % on RA per ED nurse. Continue supplemental oxygen to maintain O2 saturation than 92%, wean as tolerated. (2) Elevated brain natriuretic peptide (BNP) level: Code(s): R79.89 - Other specified abnormal findings of blood chemistry Status: Acute Assessment and Plan: - BNP 2290 - no echo on file, ordered - currently on Lasix 20 mg daily, continue same dose. does not appear volume overloaded on exam. - monitor I&Os and daily weights - trend renal function (3) HTN (hypertension): Qualifiers: Hypertension type: primary hypertension Qualified Code(s): I10 - Essential (primary) hypertension Code(s): I10 - Essential (primary) hypertension Status: Chronic Assessment and Plan: - chronic, currently 156/88 - [facility] - [facility] with recent aortic valve replacement and an aortic aneurysm repair and 03/08/24 at [facility] patient is on warfarin, with INR goal of 2.5 to 3.5, today patient INR is 2, 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 patient was give morphine x1 which did help, today patient c/o left sided neck and shoulder pain, will apply lidocaine patches, patient stats feeling better now, his CALLAWAY improving and he is not as short of breath as when he came in. Diet: Heart healthy GI Prophylaxis: Not currently indicated DVT Prophylaxis: Warfarin Lines: Peripheral Code Status: Full code Subjective Date/time seen: 07/05/24 14:06 Interval history: H&P-Narrative 53 y/o M presents here with shortness of breath with PMH of hyperlipidemia, hypertension, aortic valve replacement, and s/p aortic aneurysm repair. The patient presents here from home for further evaluation of shortness of breath. He reports onset approximately 3 days ago. Worsens with exertion and no alleviating factors. Is accompanied by a productive cough, fever, chills, body aches, wheezing, chest tightness, nausea, vomiting, and diarrhea. Denies chest pain. Originally seen at [place] on Thursday, 07/01, for same symptoms and was diagnosed with a viral infection. Of note, the patient had a recent aortic valve replacement and an aortic aneurysm repair and 03/08/24 at [facility]. He reports that his mother, whom he just moved into to [facility], has also had cold like symptoms. He also noted some weight gain despite a poor appetite, denies lower extremity swelling. 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 patient was give morphine x1 which did help, today patient c/o left sided neck and shoulder pain, will apply lidocaine patches, patient stats feeling better now, his CALLAWAY improving and he is not as short of breath as when he came in. Exam Narrative: Patient is comfortable, NAD HEENT: eyes are clear and none icteric LUNGS:CTA HEART: RR S1S2 ABD: BS+, Soft and nontender Lower extremities: no edema SKIN: nonjaundiced Neuro: grossly intact. Objective Data Vital Signs Vital Signs: Vital Signs - 24 hr 07/04/24 15:02 07/04/24 15:13 03/03/25 20:00 Temperature Pulse Rate 67 78 72 Respiratory Rate 20 20 20 Blood Pressure Pulse Oximetry Oxygen Delivery Oxygen Flow Rate 07/04/24 20:00 07/04/24 20:04 07/04/24 20:13 Temperature 37.2 C Pulse Rate 82 Respiratory Rate 16 Blood Pressure 173/99 H Pulse Oximetry 100 96 100 Oxygen Delivery Nasal Cannula Nasal Cannula Oxygen Flow Rate 3 3 07/04/24 20:15 07/04/24 20:26 07/04/24 21:05 Temperature 37.4 C Pulse Rate 78 78 75 Respiratory Rate 20 16 Blood Pressure 145/75 H Pulse Oximetry 94 Oxygen Delivery Oxygen Flow Rate 07/04/24 23:15 07/05/24 02:21 07/05/24 02:30 Temperature Pulse Rate 67 74 Respiratory Rate 20 20 Blood Pressure Pulse Oximetry 96 Oxygen Delivery Nasal Cannula Oxygen Flow Rate 3 07/05/24 06:00 07/05/24 08:09 07/05/24 08:15 Temperature 37.0 C Pulse Rate 72 70 70 Respiratory Rate 22 H Blood Pressure 179/95 H 164/94 H Pulse Oximetry 96 97 Oxygen Delivery Oxygen Flow Rate 07/05/24 08:22 07/05/24 09:33 07/05/24 09:35 Temperature Pulse Rate 72 Respiratory Rate 16 Blood Pressure Pulse Oximetry 94 91 Oxygen Delivery Nasal Cannula Nasal Cannula Oxygen Flow Rate 1 2 07/05/24 13:56 Temperature 36.2 C L Pulse Rate 76 Respiratory Rate 18 Blood Pressure 147/85 H Pulse Oximetry 98 Oxygen Delivery Oxygen Flow Rate Intake/Output Intake/Output: Intake & Output 07/02/24 07/03/24 07/04/24 07/05/24 23:59 23:59 23:59 23:59 Intake Total 630 1160 Output Total 300 700 Balance 330 460 Meds/Results Medications: Active Medications Generic Name Dose Route Start Last Admin Trade Name Freq PRN Reason Stop Dose Admin Acetaminophen 650 mg 07/03/24 22:07 07/04/24 23:06 Acetaminophen 325 Mg Tablet PO 650 mg Q4H PRN Administration Mild Pain (1-3) or Fever Albuterol/Ipratropium 3 ml 07/04/24 02:00 07/05/24 09:33 Ipratropium 0.5 Mg/Albuterol Sulfate 2.5 Mg Ampul.Neb 3 Ml INHALATION 3 ml Q6HRT SANA Administration Alprazolam 0.5 mg 07/04/24 00:09 07/04/24 20:26 Alprazolam (*Crx) 0.5 Mg Tablet PO 0.5 mg TID PRN Administration anxiety Atorvastatin Calcium 20 mg 07/04/24 09:00 07/05/24 08:15 Atorvastatin 20 Mg Tablet PO 20 mg DAILY SANA Administration Benzocaine 1 lozenge 07/03/24 22:23 07/04/24 00:07 Benzocaine/Menthol (*Bkc) 18 Ea Lozenge PO 1 lozenge PRN PRN Administration Sore Throat Benzonatate 100 mg 07/03/24 22:23 07/05/24 05:16 Benzonatate 100 Mg Capsule PO 100 mg TID PRN Administration Cough Carvedilol 25 mg 07/04/24 09:00 07/05/24 08:15 Carvedilol 25 Mg Tablet PO 25 mg Q12HR SANA Administration Fluoxetine HCl 40 mg 07/04/24 09:00 07/05/24 08:15 Fluoxetine Hcl 10 Mg Capsule PO 40 mg QAM SANA Administration Fluoxetine HCl 20 mg 07/04/24 18:00 07/04/24 17:27 Fluoxetine Hcl 20 Mg Capsule PO 20 mg QPM SANA Administration Guaifenesin 600 mg 07/04/24 09:00 07/05/24 08:15 Guaifenesin 12 Hr 600 Mg Tabcr PO 600 mg Q12HR SANA Administration Ceftriaxone Sodium 1 gm in 50 mls @ 100 mls/hr 07/04/24 23:00 07/04/24 23:32 Rocephin 1 Gm/Ns 50 Ml IVPB Infused Q24H SANA Infusion Azithromycin 500 mg in 250 mls @ 250 mls/hr 07/05/24 00:00 07/05/24 00:02 Zithromax IVPB Infused Q24H SANA Infusion Lidocaine 2 patch 07/05/24 09:00 07/05/24 10:35 Lidocaine 5% Patch TRANSDERM 2 patch DAILY SANA Administration Losartan Potassium 25 mg 07/04/24 09:00 07/05/24 08:15 Losartan Potassium 25 Mg Tablet PO 25 mg DAILY SANA Administration Promethazine HCl 25 mg 07/04/24 04:04 07/04/24 04:12 Promethazine Hcl 25 Mg/Ml Ampul IM 25 mg Q6H PRN Administration Nausea And Vomiting Tramadol HCl 50 mg 07/04/24 21:23 07/05/24 10:34 Tramadol Hcl (*Crx) 50 Mg Tablet PO 50 mg Q4H PRN Administration Pain Rated 4-6 Warfarin Sodium 2.5 mg 07/04/24 21:00 07/04/24 20:26 Warfarin (*Pbkc) 2.5 Mg Tablet PO 2.5 mg HS SANA Administration Warfarin Sodium 0.5 mg 07/05/24 11:20 07/05/24 12:18 Warfarin (*Pbkc) 0.5 Mg Tablet PO 0.5 mg DAILY@1700 SANA Administration Radiology Results: ITS Impressions Chest X-Ray 07/03/24 19:53 IMPRESSION: No acute cardiopulmonary pathology. Chest CTA 07/03/24 21:22 IMPRESSION: 1. Highly suggestive of pneumonitis. Clinical correlation and follow-up advised. 2. Bilateral pleural effusion with adjacent atelectasis versus pneumonia. 3. Small hypodensity in the liver. Ultrasound evaluation advised. 4. Mediastinal lymphadenopathy. Head CT 07/04/24 06:55 Impression: No significant abnormality seen. Labs Labs: Laboratory Results - last 24 hr 07/05/24 05:16 WBC 8.8 RBC 4.26 L Hgb 11.3 L Hct 35.0 L MCV 82.2 MCH 26.5 MCHC 32.3 RDW 15.5 H Plt Count 469 H MPV 8.4 PT 22.9 H D INR 2.0 Sodium 140 Potassium 4.1 Chloride 105 Carbon Dioxide 29 Anion Gap 6 BUN 10 Creatinine 0.64 L Estim Creat Clear Calc 127 Estimated GFR > 60 Glucose 100 Calcium 8.8 Magnesium 2.0
[2024-07-05] MEDS: ACETAMINOPHEN 325 MG TABLET 650 MG PO ×2 (14:10→23:30)
[2024-07-05] MEDS: FLUoxetine HCL 20 MG CAPSULE PO (17:25)
[2024-07-05] MEDS: WARFARIN (*PBKC) 3 MG TABLET PO (20:50)
[2024-07-05] MEDS: ALPRAZolam (*CRX) 0.5 MG TABLET PO (20:50)
[2024-07-05] MEDS: AZITHROMYCIN 500 MG/NS 250 ML 500 MG/250 ML BAG 250 MG IVPB (23:23)
[2024-07-06] VITALS (19 sets, daily range): BP systolic 134–180; BP diastolic 83–89; PULSE 67–86; RESP 18–20; TEMP 36.6–36.7; O2SAT 90–96
[2024-07-06] MEDS: traMADol HCL (*CRX) 50 MG TABLET PO ×5 (01:53→23:09)
[2024-07-06] MEDS: IPRATROPIUM 0.5 MG/ALBUTEROL SULFATE 2.5 MG AMPUL.NEB 3 ML INHALATION ×4 (03:32→21:25)
[2024-07-06 04:52] LABS: Hematocrit 35.1 % (42.0-52.0); Hemoglobin 11.4 g/dL (14.0-18.0); Mean Corpuscular HGB Conc 32.5 g/dl (32-36); Mean Corpuscular Hemoglobin 26.8 pg (26-34); Mean Corpuscular Volume 82.6 fl (80-100); Mean Platelet Volume 8.2 fl (7.4-10.4); Platelet Count Result 460 k/mm3 (150-375); Red Blood Count 4.25 M/mm3 (4.6-6.20); Red Cell Distribution Width 15.7 % (11.5-14.5); White Blood Count 9.2 K/mm3 (4.5-10.0)
[2024-07-06 05:03] LABS: Anion Gap 6 mmol/L (4-12); Blood Urea Nitrogen 10 mg/dL (9-20); Calcium 8.8 mg/dL (8.4-10.2); Carbon Dioxide 30 mmol/L (22-30); Chloride 103 mmol/L (98-107); Estimated CRCL calculation 128 ml/min; Estimated Glomerular Filt Rate > 60; Glucose 106 mg/dL (65-110); Magnesium 2.1 mg/dL (1.6-2.3); Potassium 4.3 mmol/L (3.4-5.0); Sodium 139 mmol/L (137-145)
[2024-07-06 05:18] LABS: Prothrombin Time 23.1 Seconds (11.1-14.7)
[2024-07-06] MEDS: ASPIRIN 81 MG ENTERIC TABLET PO (10:19)
[2024-07-06] MEDS: ATORVASTATIN 20 MG TABLET PO (10:19)
[2024-07-06] MEDS: LOSARTAN POTASSIUM 25 MG TABLET PO (10:19)
[2024-07-06] MEDS: FLUoxetine HCL 10 MG CAPSULE 40 MG PO (10:19)
[2024-07-06] MEDS: guaiFENesin 12 HR 600 MG TABCR PO ×2 (10:19→20:23)
[2024-07-06] MEDS: ALPRAZolam (*CRX) 0.5 MG TABLET PO ×2 (10:19→20:23)
[2024-07-06] MEDS: LIDOCAINE 5% PATCH 2 PATCH TRANSDERM (10:20)
[2024-07-06] MEDS: carvediloL 25 MG TABLET PO ×2 (10:20→20:23)
[2024-07-06] MEDS: WARFARIN (*PBKC) 0.5 MG TABLET PO (10:23)
--- NOTE | 2024-07-06 15:07 | PC.NURSE ---
Call receivied from patients' place of work stating that the patient was talking on the phone with a coworker when the patient stated that he wanted to shoot himself. The patients' coworker was concerned for the patient and called his concern to their place of work. RN completed [place] Suicide Risk Scale and patient answered no to all questions asked. RN then went into detail about the concerns called in by his coworker to their place of work, and what was all said. Patient continued to tell me that his coworker must have misunderstood him. He stated to this RN that his coworker asked how he was feeling and the patient answered with I feel so bad that I could shoot myself . The patient stated that he did not mean it intentionally and had no plan or desire to shoot himself. I educated the patient on the seriousness of statement like this and that if he needed to talk with someone or felt in anyway that he no longer wanted to live, we could help him get resources and people to talk to about how he is feeling. Patient verbalized understanding of education.
--- NOTE | 2024-07-06 16:05 | P.PNIM_ITS ---
Progress Note: A&P Assessment and Plan (1) Pneumonia: Qualifiers: Pneumonia type: due to unspecified organism Laterality: bilateral Lung location: lower lobe of lung Qualified Code(s): J18.9 - Pneumonia, unspecified organism Code(s): J18.9 - Pneumonia, unspecified organism Status: Acute Assessment and Plan: - did not meet SIRS criteria. However, blood cultures were obtained during the patient's initial workup, follow. - CXR: No acute cardiopulmonary pathology. - started on CAP tx: ceftriaxone and azithromycin on 07/03 - check MRSA PCR - Viral PCR negative - sputum culture, if obtainable - supportive care DuoNebs sana Mucinex sana Tylenol p.r.n. Tessalon Perles p.r.n. Lozenge p.r.n. - currently requiring supplemental O2 - 2L NC, desat to 88 % on RA per ED nurse. Continue supplemental oxygen to maintain O2 saturation than 92%, wean as tolerated. (2) Elevated brain natriuretic peptide (BNP) level: Code(s): R79.89 - Other specified abnormal findings of blood chemistry Status: Acute Assessment and Plan: - BNP 2290 - no echo on file, ordered - currently on Lasix 20 mg daily, continue same dose. does not appear volume overloaded on exam. - monitor I&Os and daily weights - trend renal function (3) HTN (hypertension): Qualifiers: Hypertension type: primary hypertension Qualified Code(s): I10 - Essential (primary) hypertension Code(s): I10 - Essential (primary) hypertension Status: Chronic Assessment and Plan: - chronic, currently 156/88 - continue home medications - monitor Plan patient with significant cardiac history with recent aortic valve replacement and an aortic aneurysm repair and 03/08/24 at [facility] patient is on warfarin, with INR goal of 2.5 to 3.5, today patient INR is 2, discuss with Dr. Booker, his product responsibility liaison and informed INR is 2, recommended increase warfarin, patient is currently takin 2.5mg will increase to 3mg PO daily, this morning patient INR is 2, will give an extra dose of warfarin 0.5x1, and continue to 3mg qhs, patient with chronic CALLAWAY, his CALLAWAY worsen with the stress of being in hospital, to further evaluate head CT scan of head which was normal. patient was give morphine x1 which did help, patient c/o left sided neck and shoulder pain, apply lidocaine patches, x-ray of Cspine is noral however x-ray of left shoulder showed OA, patient stats feeling better now, his CALLAWAY improving and he is not as short of b reath as when he came in. Diet: Heart healthy GI Prophylaxis: Not currently indicated DVT Prophylaxis: Warfarin Lines: Peripheral Code Status: Full code Subjective Date/time seen: 07/06/24 16:05 Interval history: H&P-Narrative 53 y/o M presents here with shortness of breath with PMH of hyperlipidemia, hypertension, aortic valve replacement, and s/p aortic aneurysm repair. The patient presents here from home for further evaluation of shortness of breath. He reports onset approximately 3 days ago. Worsens with exertion and no alleviating factors. Is accompanied by a productive cough, fever, chills, body aches, wheezing, chest tightness, nausea, vomiting, and diarrhea. Denies chest pain. Originally seen at [place] on Thursday, 07/01, for same symptoms and was diagnosed with a viral infection. Of note, the patient had a recent aortic valve replacement and an aortic aneurysm repair and 03/08/24 at [facility]. He reports that his mother, whom he just moved into to [facility], has also had cold like symptoms. He also noted some weight gain despite a poor appetite, denies lower extremity swelling. patient with significant cardiac history with recent aortic valve replacement and an aortic aneurysm repair and 03/08/24 at [facility] patient is on warfarin, with INR goal of 2.5 to 3.5, today patient INR is 2, discuss with Dr. Booker, his product responsibility liaison and informed INR is 2, recommneded increase warfarin, patient is currently takin 2.5mg will increase to 3mg PO daily, this morning patient INR is 2, will give an extra dose of warfarin 0.5x1, and continue to 3mg qhs, patient with chronic CALLAWAY, his CALLAWAY worsen with the stress of being in hospital, to further evaluate head CT scan of head which was normal. patient was give morphine x1 which did help, patient c/o left sided neck and shoulder pain, apply lidocaine patches, x-ray of Cspine is noral however x-ray of left shoulder showed OA, patient stats feeling better now, his CALLAWAY improving and he is not as short of breath as when he came in. Review of Systems Review of Systems: All systems reviewed & are unremarkable except as noted in HPI and below Exam Narrative: Patient is comfortable, NAD HEENT: eyes are clear and none icteric LUNGS:CTA HEART: RR S1S2 ABD: BS+, Soft and nontender Lower extremities: no edema SKIN: nonjaundiced Neuro: grossly intact. Objective Data Vital Signs Vital Signs: Vital Signs - 24 hr 07/05/24 20:00 07/05/24 20:27 07/05/24 20:27 Temperature Pulse Rate 77 Respiratory Rate 20 Blood Pressure Pulse Oximetry 96 95 Oxygen Delivery Nasal Cannula Nasal Cannula Oxygen Flow Rate 2 2 07/05/24 20:49 07/05/24 20:51 07/05/24 23:32 Temperature 36.9 C Pulse Rate 77 73 73 Respiratory Rate 20 18 Blood Pressure 189/103 H 152/89 H Pulse Oximetry 96 96 Oxygen Delivery Oxygen Flow Rate 07/06/24 03:32 07/06/24 03:39 07/06/24 04:53 Temperature 36.6 C Pulse Rate 82 86 68 Respiratory Rate 20 20 18 Blood Pressure 180/86 H Pulse Oximetry 96 Oxygen Delivery Oxygen Flow Rate 07/06/24 06:16 07/06/24 08:15 07/06/24 09:26 Temperature Pulse Rate Respiratory Rate Blood Pressure Pulse Oximetry 96 92 91 Oxygen Delivery Nasal Cannula Room Air Room Air Oxygen Flow Rate 1 07/06/24 09:26 07/06/24 10:20 07/06/24 10:27 Temperature Pulse Rate 79 77 Respiratory Rate 20 Blood Pressure Pulse Oximetry 90 Oxygen Delivery Nasal Cannula Oxygen Flow Rate 0.5 07/06/24 14:00 Temperature 36.7 C Pulse Rate 72 Respiratory Rate 20 Blood Pressure 134/83 Pulse Oximetry 92 Oxygen Delivery Oxygen Flow Rate Intake/Output Intake/Output: Intake & Output 07/03/24 07/04/24 07/05/24 07/06/24 23:59 23:59 23:59 23:59 Intake Total 630 1450 1020 Output Total 300 2000 Balance 330 -550 1020 Meds/Results Medications: Active Medications Generic Name Dose Route Start Last Admin Trade Name Freq PRN Reason Stop Dose Admin Acetaminophen 650 mg 07/03/24 22:07 07/05/24 23:30 Acetaminophen 325 Mg Tablet PO 650 mg Q4H PRN Administration Mild Pain (1-3) or Fever Albuterol/Ipratropium 3 ml 07/04/24 02:00 07/06/24 09:25 Ipratropium 0.5 Mg/Albuterol Sulfate 2.5 Mg Ampul.Neb 3 Ml INHALATION 3 ml Q6HRT SANA Administration Alprazolam 0.5 mg 07/04/24 00:09 07/06/24 10:19 Alprazolam (*Crx) 0.5 Mg Tablet PO 0.5 mg TID PRN Administration anxiety Aspirin 81 mg 07/06/24 09:00 07/06/24 10:19 Aspirin 81 Mg Enteric Tablet PO 81 mg DAILY SANA Administration Atorvastatin Calcium 20 mg 07/04/24 09:00 07/06/24 10:19 Atorvastatin 20 Mg Tablet PO 20 mg DAILY SANA Administration Benzocaine 1 lozenge 07/03/24 22:23 07/04/24 00:07 Benzocaine/Menthol (*Bkc) 18 Ea Lozenge PO 1 lozenge PRN PRN Administration Sore Throat Benzonatate 100 mg 07/03/24 22:23 07/05/24 20:50 Benzonatate 100 Mg Capsule PO 100 mg TID PRN Administration Cough Carvedilol 25 mg 07/04/24 09:00 07/06/24 10:20 Carvedilol 25 Mg Tablet PO 25 mg Q12HR SANA Administration Fluoxetine HCl 40 mg 07/04/24 09:00 07/06/24 10:19 Fluoxetine Hcl 10 Mg Capsule PO 40 mg QAM SANA Administration Fluoxetine HCl 20 mg 07/04/24 18:00 07/05/24 17:25 Fluoxetine Hcl 20 Mg Capsule PO 20 mg QPM SANA Administration Guaifenesin 600 mg 07/04/24 09:00 07/06/24 10:19 Guaifenesin 12 Hr 600 Mg Tabcr PO 600 mg Q12HR SANA Administration Ceftriaxone Sodium 1 gm in 50 mls @ 100 mls/hr 07/04/24 23:00 07/05/24 23:52 Rocephin 1 Gm/Ns 50 Ml IVPB Infused Q24H SANA Infusion Azithromycin 500 mg in 250 mls @ 250 mls/hr 07/05/24 00:00 07/06/24 00:23 Zithromax IVPB Infused Q24H SANA Infusion Lidocaine 2 patch 07/05/24 09:00 07/06/24 10:20 Lidocaine 5% Patch TRANSDERM 2 patch DAILY SANA Administration Losartan Potassium 25 mg 07/04/24 09:00 07/06/24 10:19 Losartan Potassium 25 Mg Tablet PO 25 mg DAILY SANA Administration Promethazine HCl 25 mg 07/04/24 04:04 07/04/24 04:12 Promethazine Hcl 25 Mg/Ml Ampul IM 25 mg Q6H PRN Administration Nausea And Vomiting Tramadol HCl 50 mg 07/04/24 21:23 07/06/24 10:19 Tramadol Hcl (*Crx) 50 Mg Tablet PO 50 mg Q4H PRN Administration Pain Rated 4-6 Warfarin Sodium 3 mg 07/05/24 21:00 07/05/24 20:50 Warfarin (*Pbkc) 3 Mg Tablet PO 3 mg HS SANA Administration Radiology Results: ITS Impressions Chest X-Ray 07/03/24 19:53 IMPRESSION: No acute cardiopulmonary pathology. Chest CTA 07/03/24 21:22 IMPRESSION: 1. Highly suggestive of pneumonitis. Clinical correlation and follow-up advised. 2. Bilateral pleural effusion with adjacent atelectasis versus pneumonia. 3. Small hypodensity in the liver. Ultrasound evaluation advised. 4. Mediastinal lymphadenopathy. Head CT 07/04/24 06:55 Impression: No significant abnormality seen. Shoulder X-Ray 07/05/24 16:22 IMPRESSION: Mild left glenohumeral and moderate acromioclavicular osteoarthritis. Cervical Spine X-Ray 07/05/24 16:38 IMPRESSION: No acute osseous abnormality cervical spine. Labs Labs: Laboratory Results - last 24 hr 07/06/24 04:29 WBC 9.2 RBC 4.25 L Hgb 11.4 L Hct 35.1 L MCV 82.6 MCH 26.8 MCHC 32.5 RDW 15.7 H Plt Count 460 H MPV 8.2 PT 23.1 H INR 2.0 Sodium 139 Potassium 4.3 Chloride 103 Carbon Dioxide 30 Anion Gap 6 BUN 10 Creatinine 0.63 L Estim Creat Clear Calc 128 Estimated GFR > 60 Glucose 106 Calcium 8.8 Magnesium 2.1 Quality VTE Prophylaxis VTE prophylaxis: pharmacologic ordered
[2024-07-06] MEDS: FLUoxetine HCL 20 MG CAPSULE PO (17:09)
[2024-07-06] MEDS: ACETAMINOPHEN 325 MG TABLET 650 MG PO (20:22)
[2024-07-06] MEDS: WARFARIN (*PBKC) 3 MG TABLET PO (20:23)
[2024-07-06] MEDS: BENZONATATE 100 MG CAPSULE PO (20:23)
[2024-07-06] MEDS: AZITHROMYCIN 500 MG/NS 250 ML 500 MG/250 ML BAG 250 MG IVPB (23:05)
[2024-07-07] VITALS (11 sets, daily range): BP systolic 161–183; BP diastolic 90–96; PULSE 66–78; RESP 16–20; TEMP 36.5–36.7; O2SAT 94–95
[2024-07-07] MEDS: IPRATROPIUM 0.5 MG/ALBUTEROL SULFATE 2.5 MG AMPUL.NEB 3 ML INHALATION ×4 (02:20→20:15)
[2024-07-07] MEDS: traMADol HCL (*CRX) 50 MG TABLET PO ×4 (02:40→22:54)
[2024-07-07 06:14] LABS: Hematocrit 36.6 % (42.0-52.0); Hemoglobin 11.7 g/dL (14.0-18.0); Mean Corpuscular Hemoglobin 26.2 pg (26-34); Mean Corpuscular Volume 82.1 fl (80-100); Mean Platelet Volume 8.2 fl (7.4-10.4); Platelet Count Result 466 k/mm3 (150-375); Red Blood Count 4.46 M/mm3 (4.6-6.20); Red Cell Distribution Width 15.6 % (11.5-14.5); White Blood Count 8.7 K/mm3 (4.5-10.0)
[2024-07-07 06:22] LABS: Anion Gap 8 mmol/L (4-12); Blood Urea Nitrogen 12 mg/dL (9-20); Calcium 9.2 mg/dL (8.4-10.2); Carbon Dioxide 28 mmol/L (22-30); Chloride 104 mmol/L (98-107); Estimated CRCL calculation 114 ml/min; Estimated Glomerular Filt Rate > 60; Glucose 101 mg/dL (65-110); Magnesium 2.2 mg/dL (1.6-2.3); Potassium 4.3 mmol/L (3.4-5.0); Sodium 140 mmol/L (137-145)
[2024-07-07 06:43] LABS: INR 2.2; Prothrombin Time 24.5 Seconds (11.1-14.7)
[2024-07-07] MEDS: carvediloL 25 MG TABLET PO ×2 (08:32→19:53)
[2024-07-07] MEDS: ATORVASTATIN 20 MG TABLET PO (08:32)
[2024-07-07] MEDS: ASPIRIN 81 MG ENTERIC TABLET PO (08:32)
[2024-07-07] MEDS: LOSARTAN POTASSIUM 25 MG TABLET PO ×2 (08:33→15:33)
[2024-07-07] MEDS: guaiFENesin 12 HR 600 MG TABCR PO ×2 (08:33→19:53)
[2024-07-07] MEDS: FLUoxetine HCL 10 MG CAPSULE 40 MG PO (08:33)
[2024-07-07] MEDS: LIDOCAINE 5% PATCH 2 PATCH TRANSDERM (08:33)
[2024-07-07] MEDS: WARFARIN (*PBKC) 0.5 MG TABLET PO (09:35)
[2024-07-07] MEDS: BENZONATATE 100 MG CAPSULE PO (12:05)
[2024-07-07] MEDS: ALPRAZolam (*CRX) 0.5 MG TABLET PO ×2 (13:38→19:55)
[2024-07-07] MEDS: ACETAMINOPHEN 325 MG TABLET 650 MG PO (13:38)
--- NOTE | 2024-07-07 14:17 | PC.NURSE ---
Dr Gaitan notified of SBP running high. SBP 180's this am before bp meds given and SBP 160's after bp meds given.
--- NOTE | 2024-07-07 14:50 | PM.IMPN ---
Progress Note: A&P Assessment and Plan (1) Pneumonia: Qualifiers: Pneumonia type: due to unspecified organism Laterality: bilateral Lung location: lower lobe of lung Qualified Code(s): J18.9 - Pneumonia, unspecified organism Code(s): J18.9 - Pneumonia, unspecified organism Status: Acute Assessment and Plan: - did not meet SIRS criteria. However, blood cultures were obtained during the patient's initial workup, follow. - CXR: No acute cardiopulmonary pathology. - started on CAP tx: ceftriaxone and azithromycin on 07/03 - check MRSA PCR - Viral PCR negative - sputum culture, if obtainable - supportive care DuoNebs sana Mucinex sana Tylenol p.r.n. Tessalon Perles p.r.n. Lozenge p.r.n. - currently requiring supplemental O2 - 2L NC, desat to 88 % on RA per ED nurse. Continue supplemental oxygen to maintain O2 saturation than 92%, wean as tolerated. (2) Elevated brain natriuretic peptide (BNP) level: Code(s): R79.89 - Other specified abnormal findings of blood chemistry Status: Acute Assessment and Plan: - BNP 2290 - no echo on file, ordered - currently on Lasix 20 mg daily, continue same dose. does not appear volume overloaded on exam. - monitor I&Os and daily weights - trend renal function (3) HTN (hypertension): Qualifiers: Hypertension type: primary hypertension Qualified Code(s): I10 - Essential (primary) hypertension Code(s): I10 - Essential (primary) hypertension Status: Chronic Assessment and Plan: - chronic, currently 156/88 - continue home medications - monitor Plan patient with significant cardiac history with recent aortic valve replacement and an aortic aneurysm repair and 03/08/24 at [facility] patient is on warfarin, with INR goal of 2.5 to 3.5, on 07/06 patient INR is 2.0, on discussed with Dr. Booker, his technical program manager and informed INR is 2, recommneded increase warfarin, patient is currently takin 2.5mg will increase to 3mg PO daily, this morning patient INR is 2.2, will give an extra dose of warfarin 0.5x1, and continue to 3mg qhs, patient with chronic CALLAWAY, his CALLAWAY worsen with the stress of being in hospital, to further evaluate head CT scan of head which was normal. patient was given morphine x1 which did help, patient c/o left sided neck and shoulder pain, apply lidocaine patches, x-ray of Cspine is noral however x-ray of left shoulder showed OA, patient is still persisting, will apply diclofenec gel, and will give tizanidine 1mg, patient BP is elevated will continue Coreg, increase losartan to 25mg BID from qd, patient stats feeling better now, his CALLAWAY improving and he is not as short of breath as when he came in. will do CXR and possibly discharge patient tomorrow. Diet: Heart healthy GI Prophylaxis: Not currently indicated DVT Prophylaxis: Warfarin Lines: Peripheral Code Status: Full code Subjective Date/time seen: 07/07/24 14:50 Interval history: H&P-Narrative 53 y/o M presents here with shortness of breath with PMH of hyperlipidemia, hypertension, aortic valve replacement, and s/p aortic aneurysm repair. The patient presents here from home for further evaluation of shortness of breath. He reports onset approximately 3 days ago. Worsens with exertion and no alleviating factors. Is accompanied by a productive cough, fever, chills, body aches, wheezing, chest tightness, nausea, vomiting, and diarrhea. Denies chest pain. Originally seen at [place] on Thursday, 07/01, for same symptoms and was diagnosed with a viral infection. Of note, the patient had a recent aortic valve replacement and an aortic aneurysm repair and 03/08/24 at [facility]. He reports that his mother, whom he just moved into to [facility], has also had cold like symptoms. He also noted some weight gain despite a poor appetite, denies lower extremity swelling. patient with significant cardiac history with recent aortic valve replacement and an aortic aneurysm repair and 03/08/24 at [facility] patient is on warfarin, with INR goal of 2.5 to 3.5, on 07/06 patient INR is 2.0, on discussed with Dr. Booker, his technical program manager and informed INR is 2, recommneded increase warfarin, patient is currently takin 2.5mg will increase to 3mg PO daily, this morning patient INR is 2.2, will give an extra dose of warfarin 0.5x1, and continue to 3mg qhs, patient with chronic CALLAWAY, his CALLAWAY worsen with the stress of being in hospital, to further evaluate head CT scan of head which was normal. patient was given morphine x1 which did help, patient c/o left sided neck and shoulder pain, apply lidocaine patches, x-ray of Cspine is noral however x-ray of left shoulder showed OA, patient is still persisting, will apply diclofenec gel, and will give tizanidine 1mg, patient BP is elevated will continue Coreg, increase losartan to 25mg BID from qd, patient stats feeling better now, his CALLAWAY improving and he is not as short of breath as when he came in. will do CXR and possibly discharge patient tomorrow. Review of Systems Review of Systems: All systems reviewed & are unremarkable except as noted in HPI and below Exam Narrative: Patient is comfortable, NAD HEENT: eyes are clear and none icteric LUNGS:CTA HEART: RR S1S2 ABD: BS+, Soft and nontender Lower extremities: no edema SKIN: nonjaundiced Neuro: grossly intact. Objective Data Vital Signs Vital Signs: Vital Signs - 24 hr 07/06/24 16:09 07/06/24 16:10 07/06/24 16:20 Temperature Pulse Rate 67 70 Respiratory Rate 20 20 Blood Pressure Pulse Oximetry 92 Oxygen Delivery Room Air 07/06/24 17:12 07/06/24 18:44 07/06/24 20:00 Temperature Pulse Rate Respiratory Rate Blood Pressure Pulse Oximetry 92 92 93 Oxygen Delivery Room Air Room Air Room Air 07/06/24 20:11 07/06/24 20:23 07/06/24 21:25 Temperature 36.6 C Pulse Rate 73 73 70 Respiratory Rate 20 20 Blood Pressure 158/89 H Pulse Oximetry 93 Oxygen Delivery 07/06/24 21:25 07/06/24 21:35 07/07/24 02:20 Temperature Pulse Rate 80 75 Respiratory Rate 20 20 Blood Pressure Pulse Oximetry 91 Oxygen Delivery Room Air 07/07/24 02:28 07/07/24 04:26 07/07/24 08:00 Temperature 36.5 C Pulse Rate 74 66 Respiratory Rate 20 20 Blood Pressure 183/96 H Pulse Oximetry 94 95 Oxygen Delivery Room Air 07/07/24 08:00 07/07/24 08:00 07/07/24 08:32 Temperature Pulse Rate 73 70 Respiratory Rate 18 Blood Pressure Pulse Oximetry 95 Oxygen Delivery Room Air 07/07/24 14:14 07/07/24 14:23 Temperature Pulse Rate 74 78 Respiratory Rate 18 18 Blood Pressure Pulse Oximetry Oxygen Delivery Intake/Output Intake/Output: Intake & Output 07/04/24 07/05/24 07/06/24 07/07/24 23:59 23:59 23:59 23:59 Intake Total 630 1450 1310 980 Output Total 300 2000 400 400 Balance 330 -550 910 580 Meds/Results Medications: Active Medications Generic Name Dose Route Start Last Admin Trade Name Freq PRN Reason Stop Dose Admin Acetaminophen 650 mg 07/03/24 22:07 07/07/24 13:38 Acetaminophen 325 Mg Tablet PO 650 mg Q4H PRN Administration Mild Pain (1-3) or Fever Albuterol/Ipratropium 3 ml 07/04/24 02:00 07/07/24 14:14 Ipratropium 0.5 Mg/Albuterol Sulfate 2.5 Mg Ampul.Neb 3 Ml INHALATION 3 ml Q6HRT SANA Administration Alprazolam 0.5 mg 07/04/24 00:09 07/07/24 13:38 Alprazolam (*Crx) 0.5 Mg Tablet PO 0.5 mg TID PRN Administration anxiety Aspirin 81 mg 07/06/24 09:00 07/07/24 08:32 Aspirin 81 Mg Enteric Tablet PO 81 mg DAILY SANA Administration Atorvastatin Calcium 20 mg 07/04/24 09:00 07/07/24 08:32 Atorvastatin 20 Mg Tablet PO 20 mg DAILY SANA Administration Benzocaine 1 lozenge 07/03/24 22:23 07/04/24 00:07 Benzocaine/Menthol (*Bkc) 18 Ea Lozenge PO 1 lozenge PRN PRN Administration Sore Throat Benzonatate 100 mg 07/03/24 22:23 07/07/24 12:05 Benzonatate 100 Mg Capsule PO 100 mg TID PRN Administration Cough Carvedilol 25 mg 07/04/24 09:00 07/07/24 08:32 Carvedilol 25 Mg Tablet PO 25 mg Q12HR [facility] Administration Diclofenac Sodium 1 applic 07/07/24 17:00 Diclofenac Sodium 1% 100 Gm Gel (*Bkc) TOPICAL QID [facility] Fluoxetine HCl 40 mg 07/04/24 09:00 07/07/24 08:33 Fluoxetine Hcl 10 Mg Capsule PO 40 mg QAM [facility] Administration Fluoxetine HCl 20 mg 07/04/24 18:00 07/06/24 17:09 Fluoxetine Hcl 20 Mg Capsule PO 20 mg QPM SANA Administration Guaifenesin 600 mg 07/04/24 09:00 07/07/24 08:33 Guaifenesin 12 Hr 600 Mg Tabcr PO 600 mg Q12HR SANA Administration Ceftriaxone Sodium 1 gm in 50 mls @ 100 mls/hr 07/04/24 23:00 07/06/24 23:35 Rocephin 1 Gm/Ns 50 Ml IVPB Infused Q24H SANA Infusion Azithromycin 500 mg in 250 mls @ 250 mls/hr 07/05/24 00:00 07/07/24 00:05 Zithromax IVPB Infused Q24H SANA Infusion Lidocaine 2 patch 07/05/24 09:00 07/07/24 08:33 Lidocaine 5% Patch TRANSDERM 2 patch DAILY SANA Administration Losartan Potassium 25 mg 07/07/24 17:00 Losartan Potassium 25 Mg Tablet PO BID SANA Promethazine HCl 25 mg 07/04/24 04:04 07/04/24 04:12 Promethazine Hcl 25 Mg/Ml Ampul IM 25 mg Q6H PRN Administration Nausea And Vomiting Tizanidine HCl 1 mg 07/07/24 14:40 Tizanidine Hcl 1 Mg Tablet PO QAM SANA Tramadol HCl 50 mg 07/04/24 21:23 07/07/24 12:05 Tramadol Hcl (*Crx) 50 Mg Tablet PO 50 mg Q4H PRN Administration Pain Rated 4-6 Warfarin Sodium 3 mg 07/05/24 21:00 07/06/24 20:23 Warfarin (*Pbkc) 3 Mg Tablet PO 3 mg HS SANA Administration Radiology Results: ITS Impressions Chest CTA 07/03/24 21:22 IMPRESSION: 1. Highly suggestive of pneumonitis. Clinical correlation and follow-up advised. 2. Bilateral pleural effusion with adjacent atelectasis versus pneumonia. 3. Small hypodensity in the liver. Ultrasound evaluation advised. 4. Mediastinal lymphadenopathy. Head CT 07/04/24 06:55 Impression: No significant abnormality seen. Shoulder X-Ray 07/05/24 16:22 IMPRESSION: Mild left glenohumeral and moderate acromioclavicular osteoarthritis. Cervical Spine X-Ray 07/05/24 16:38 IMPRESSION: No acute osseous abnormality cervical spine. Chest X-Ray 07/07/24 13:28 IMPRESSION: 1. Small left pleural effusion. Labs Labs: Laboratory Results - last 24 hr 07/07/24 06:00 WBC 8.7 RBC 4.46 L Hgb 11.7 L Hct 36.6 L MCV 82.1 MCH 26.2 MCHC 32.0 RDW 15.6 H Plt Count 466 H MPV 8.2 PT 24.5 H INR 2.2 Sodium 140 Potassium 4.3 Chloride 104 Carbon Dioxide 28 Anion Gap 8 BUN 12 Creatinine 0.70 Estim Creat Clear Calc 114 Estimated GFR > 60 Glucose 101 Calcium 9.2 Magnesium 2.2 Quality VTE Prophylaxis VTE prophylaxis: pharmacologic ordered
[2024-07-07] MEDS: TIZANIDINE HCL 1 MG TABLET PO (15:32)
[2024-07-07] MEDS: FLUoxetine HCL 20 MG CAPSULE PO (17:29)
[2024-07-07] MEDS: WARFARIN (*PBKC) 3 MG TABLET PO (19:53)
[2024-07-07] MEDS: DICLOFENAC SODIUM 1% 100 GM GEL (*BKC) 1 APPLIC TOPICAL (19:54)
[2024-07-08] VITALS (9 sets, daily range): BP systolic 166–180; BP diastolic 90–110; PULSE 67–80; RESP 16–18; TEMP 36.8; O2SAT 92–95
[2024-07-08] MEDS: AZITHROMYCIN 500 MG/NS 250 ML 500 MG/250 ML BAG 250 MG IVPB
[2024-07-08] MEDS: ACETAMINOPHEN 325 MG TABLET 650 MG PO (01:39)
[2024-07-08] MEDS: DICLOFENAC SODIUM 1% 100 GM GEL (*BKC) 1 APPLIC TOPICAL ×3 (01:40→13:01)
[2024-07-08] MEDS: IPRATROPIUM 0.5 MG/ALBUTEROL SULFATE 2.5 MG AMPUL.NEB 3 ML INHALATION ×2 (02:27→09:58)
[2024-07-08 05:38] LABS: Hematocrit 35.2 % (42.0-52.0); Hemoglobin 11.4 g/dL (14.0-18.0); Mean Corpuscular HGB Conc 32.4 g/dl (32-36); Mean Corpuscular Hemoglobin 26.5 pg (26-34); Mean Corpuscular Volume 81.9 fl (80-100); Mean Platelet Volume 8.3 fl (7.4-10.4); Platelet Count Result 466 k/mm3 (150-375); Red Cell Distribution Width 15.7 % (11.5-14.5); White Blood Count 7.9 K/mm3 (4.5-10.0)
[2024-07-08 05:43] LABS: Anion Gap 7 mmol/L (4-12); Blood Urea Nitrogen 14 mg/dL (9-20); Calcium 9.2 mg/dL (8.4-10.2); Carbon Dioxide 27 mmol/L (22-30); Chloride 104 mmol/L (98-107); Estimated CRCL calculation 126 ml/min; Estimated Glomerular Filt Rate > 60; Glucose 104 mg/dL (65-110); INR 2.2; Magnesium 2.1 mg/dL (1.6-2.3); Potassium 4.3 mmol/L (3.4-5.0); Prothrombin Time 24.5 Seconds (11.1-14.7); Sodium 138 mmol/L (137-145)
[2024-07-08] MEDS: LOSARTAN POTASSIUM 25 MG TABLET PO (05:50)
[2024-07-08] MEDS: carvediloL 25 MG TABLET PO (05:50)
[2024-07-08] MEDS: TIZANIDINE HCL 1 MG TABLET PO (08:44)
[2024-07-08] MEDS: ATORVASTATIN 20 MG TABLET PO (08:44)
[2024-07-08] MEDS: guaiFENesin 12 HR 600 MG TABCR PO (08:44)
[2024-07-08] MEDS: FLUoxetine HCL 10 MG CAPSULE 40 MG PO (08:44)
[2024-07-08] MEDS: ASPIRIN 81 MG ENTERIC TABLET PO (08:44)
--- NOTE | 2024-07-08 12:09 | PM.DS ---
DS: Summary Time Spent with Patient Time attestation: Total time spent providing and/or coordinating discharge services: DS: Data Data Completed and Pending Labs on day of discharge: Labs from last 24 hours 07/08/24 05:22 WBC 7.9 RBC 4.30 L Hgb 11.4 L Hct 35.2 L MCV 81.9 MCH 26.5 MCHC 32.4 RDW 15.7 H Plt Count 466 H MPV 8.3 PT 24.5 H INR 2.2 Sodium 138 Potassium 4.3 Chloride 104 Carbon Dioxide 27 Anion Gap 7 BUN 14 Creatinine 0.63 L Estim Creat Clear Calc 126 Estimated GFR > 60 Glucose 104 Calcium 9.2 Magnesium 2.1 Preliminary micro results at discharge 07/03/24 22:51 Blood Culture - Preliminary Blood 07/03/24 22:50 Blood Culture - Preliminary Blood Discharge Plan Discharge Attending physician on discharge: Daniella Kumar Discharging Clinician: Isaac Gaitan Patient Disposition: Home, Self-Care Activity: as tolerated Diet: heart healthy Discharge Instructions: Patient to follow up with his continuous dryout operator helper to check for INR on ThursdayJuly 08. patient is instructed coumadin is increase to 3mg daily, patient to follow up with his continuous dryout operator helper and primary care provider as soon as possible. patient is instructed if any symptoms worsen to go to nearest ER. Patient Instructions: Antibiotic Form, Warfarin (By mouth), Heart Failure (DC) Patient Language: Urdu Stand Alone Forms: General Discharge Information Follow-up/Referrals: Porfirio Booker MD [Physician] - Calvin,Shun Hassan MD [Primary Care Provider] - Discharge Medications: New tramadol 50 mg Tablet 50 mg PO Q4H PRN (Reason: Pain Rated 4-6) Qty: 15 0RF Chloraseptic Sore Throat 6-10 mg Lozenge 1 madalyn PO PRN PRN (Reason: Sore Throat) Qty: 30 0RF benzonatate 100 mg Capsule 100 mg PO TID PRN (Reason: Cough) Qty: 30 0RF guaifenesin [Mucus Relief ER] 600 mg Tablet Extended Release 12hr 600 mg PO Q12HR Qty: 30 0RF lidocaine [Lidoderm] 5 % Adhesive Patch,Medicated 2 patch transdermal DAILY Qty: 30 0RF tizanidine 2 mg capsule 2 mg PO Q8H PRN (Reason: muscle spasticity) Qty: 30 0RF tizanidine 2 mg capsule 2 mg PO Q8H PRN (Reason: muscle spasticity) Qty: 30 0RF warfarin 3 mg tablet 3 mg PO DAILY Qty: 30 0RF Continued losartan 25 mg tablet 25 mg PO DAILY atorvastatin 20 mg tablet 20 mg PO DAILY fluoxetine [Prozac] 10 mg capsule 40 mg PO QAM fluoxetine 20 mg capsule 20 mg PO QPM alprazolam 0.5 mg tablet 0.5 mg PO TID PRN (Reason: anxiety) carvedilol 25 mg tablet 25 mg PO BID aspirin [Adult Low Dose Aspirin] 81 mg tablet,delayed release (DR/EC) 81 mg PO DAILY Discontinued warfarin 5 mg tablet 2.5 mg PO HS Date of admission: 07/04/24 08:06 Primary Care Provider: CalvinShun Admitting Provider: Daniella Kumar Attending physician on admission: Daniella Kumar Condition: Stable
== END 2024-07-08 15:10 | disposition home or self-care (01) | DRG 195 ==
LOC: ANHED 22:27 → ANH2MED 22:44
PROVIDERS: Student in an Organized Health Care Education/Training Program; Admitting Provider Internal Medicine; Emergency Provider Emergency Medicine; PCP Internal Medicine Gastroenterology; Visit Provider Family Medicine
DX: J18.9 Pneumonia, unspecified organism (principal); I10 Essential (primary) hypertension; R51.9 Headache, unspecified; E78.5 Hyperlipidemia, unspecified; F41.9 Anxiety disorder, unspecified; R79.89 Other specified abnormal findings of blood chemistry; Z95.2 Presence of prosthetic heart valve
CPT/HCPCS: 36415; 70450; 71046; 71275; 72040; 73030; 80048; 80053; 82948; 83690; 83735; 83880; 84484; 85025; 85027; 85610; 85730; 87040; 87637; 87641; 93005; 94640; 96372; 96374; 96375; 99285; A9270; C8929; G0378; J0360; J0456; J0696; J2060; J2270; J2405; J2550; Q9957; Q9967